=== PATIENT | female | born 1980 | race Caucasian/White ===

== ENCOUNTER 2023-06-11 04:04 | Emergency (ER) | payer OTHER, SELFPAY ==
[2023-06-11] VITALS (7 sets, daily range): BP systolic 142–164; BP diastolic 71–90; PULSE 67–87; RESP 16–23; TEMP 36.6; O2SAT 100
--- NOTE | 2023-06-11 04:30 | DI.CT_ITS ---
Exam(s) CT BRAIN CTA EXAM: CT BRAIN CTA CLINICAL HISTORY: severe headache, woke from sleep, assoicated N/V. TECHNIQUE: Imaging Protocol: Both noninfused and contrast infused CT scans of the brain were perform ed. IV Contrast Dose =75 cc Axial computed tomography images with coronal and sagittal reformatted images were created and review ed COMPARISON: No exams were available for comparison FINDINGS: CTA BRAIN: Both internal carotid arteries are patent in the skull base/carotid canals. Also patent within the c avernous sinuses. Supraclinoid aspects are patent nonaneurysmal. Left A1 segment is dominant. Righ t A1 segment is thin. Anterior cerebral arteries are patent. There is no significant aneurysm evide nt at the level of the anterior communicating artery. Both middle cerebral arteries are patent. No significant stenosis nor dissection no aneurysms. In the posterior circulation the basilar artery is formed by both vertebral arteries at the skull bas e. The basilar artery ascends in the midline with normal luminal diameter. No significant stenosis nor dissection. Distally the basilar artery terminates as patent posterior cerebral arteries. There is no aneurysm at the tip of the basilar artery nor elsewhere in the [id number]. There are no skull fractures nor fluid in the visualized paranasal sinuses. There is no evidence of intracranial hemorrhage, mass effect, or shift of midline structures. There are no extra-axial fluid collections. The ventricles are not enlarged or shifted and there is no blo od within the ventricular system nor within the basal cisterns. There are no ring enhancing lesions in the brain and there is no abnormal meningeal enhancement, foca l or diffuse. No evidence of vascular malformation. IMPRESSION: No evidence of intracranial aneurysms. No intracranial vascular stenosis nor occlusion. No significant intracranial findings. No significant enhancing intracranial findings. No evidence of vascular malformation in the brain. RADIATION DOSE DELIVERED: 1,685.94mGy.cm Total DLP DATA REPOSITORY: All CT scans at this facility are submitted to the National Radiology Data Registry (NRDR) Dose Index Registry (DIR) with the [employer] (A[employer]). RADIATION OPTIMIZATION: All CT scans at this facility use at least one of these dose optimization te chniques: automated exposure control; mA and/or kV adjustment per patient size (includes targeted exa ms where dose is matched to clinical indication); or iterative reconstruction.
--- NOTE | 2023-06-11 04:33 | W.ED.GENAD ---
Discharge Plan Disposition Patient Disposition: Home Condition: Good Discharge Details Chief Complaint: Headache Clinical Impression: Migraine ED Provider: Juanita Hayes Discharge Instructions Instructions: General Headache (ED) Additional Instructions: Call your primary care doctor today to schedule an appointment within one week to followup on your visit here. Discuss your blood pressure at that visit as it is high here today. Return to the emergency department for new or worsening symptoms including fever, severe headache unimproved by home medication, numbness or weakness, vertigo, or if you have any other concerns. Stand Alone Forms: Work Release HPI General Mode of arrival: ambulatory. Date/Time Provider Initiated Documentation: 06/11/23 04:30. Limitations to Documentation: no limitations. Information obtained by: patient. HPI Narrative: 43yo F with hx of migraines, denies other medical history, presenting for severe headache. States this headache feels like her prior migraines but worse. Woke at 11pm from sleep with severe diffuse headache radiating down her neck and shoulders; took Advil and rizatriptan without relief. Associated nausea and vomiting, non-bloody non-bilious. No numbness, tingling, weakens, vision changes, or vertigo. No alleviating or aggravating factors. No pain with neck movement. Not worse with light or sound. No recent trauma. [place] normal when she went to sleep yesterday. She is otherwise in her usual state of health with no fevers, chills, rash, chest pain, shortness of breath, abdominal pain, dysuria, hematuria, or other concerns. Related Data Allergies Allergy/AdvReac Type Severity Reaction Status Date / Time Sulfa (Sulfonamide Allergy Severe Hives Unverified 06/11/23 04:17 Antibiotics) General Stated Complaint: Headache PABLO: 3 Review of Systems Narrative: see HPI Exam Narrative Exam Narrative: General: Alert, shaking, appears to be in pain Head: Normocephalic, atraumatic. No temporal tenderness. Neck: Trachea midline, ?Neck supple. ENT: ?MMM.? . Cardiac: ?RRR, no murmurs appreciated Resp: No respiratory distress. CTAB. Abd: ?Soft, non-distended, nontender : ?No suprapubic tenderness. Extremities: ?No deformities.? No peripheral edema. Neuro: ? GCS 15.? Fluent speech, no dysarthria. No nuchal rigidity. Motor- 5/5 strength symmetric bilateral upper and lower extremities Sensation- ?Intact to light touch and symmetric multiple dermatomes including upper and lower extremities Coordination- No dysmetria on finger to nose Gait/station: ?Normal stance.? No truncal ataxia. Steady gait with equal normal steps CRANIAL NERVES: II: Pupils equal and reactive, No photophobia. III, IV, : EOM intact, no gaze preference or deviation, no nystagmus. V: normal sensation in V1, V2, and V3 segments bilaterally VII: no asymmetry, no nasolabial fold flattening VIII: normal hearing to speech IX, X: normal palatal elevation, no uvular deviation XI: 5/5 head turn and 5/5 shoulder shrug bilaterally XII: midline tongue protrusion Course Vital Signs Vital signs: Vital Signs Temperature 36.6 C 06/11/23 04:07 Pulse 78 06/11/23 04:07 Respiratory Rate 20 06/11/23 04:07 Blood Pressure 164/90 H 06/11/23 04:07 Pulse Oximetry 100 06/11/23 04:07 Temperature 36.6 C 06/11/23 04:07 Temperature Source Oral 06/11/23 04:07 Pulse 78 06/11/23 04:07 Respiratory Rate 20 06/11/23 04:07 Respiratory Effort Normal, Non-Labored 06/11/23 04:11 Blood Pressure 164/90 H 06/11/23 04:07 Blood Pressure Position Sitting 06/11/23 04:07 Pulse Oximetry 100 06/11/23 04:07 Oxygen Delivery Method Room Air 06/11/23 04:07 Oxygen Flow Rate 0 06/11/23 04:07 Pain Level 9 06/11/23 04:14 Medical Decision Making 43yo F with hx of migraines, denies other medical history, presenting for severe headache. States this headache feels like her prior migraines but worse. Woke at 11pm from sleep with severe diffuse headache radiating down her neck and shoulders; took Advil and rizatriptan without relief. Associated nausea and vomiting, non-bloody non-bilious. Hypertensive on arrival, vital signs otherwise reassuring. Benign physical and neurologic exam with no focal deficits and no nuchal rigidity. Patient does appear to be in severe pain and is shaking. She is insistent that this is her typical migraine headache however the fact that it is so severe, woke her from sleep, and was maximal at onset is concerning despite her prior history and normal neurologic exam. No fevers or nuchal rigidity to suggest meningitis. I am more concerned about a possible SAH; as it has been less than [address]/CTA should suffice to evaluate. In the meantime will treat with migraine cocktail; tylenol, compazine, benadryl, IVF, decadron. Will hold off on toradol for now pending CT results. CT head independently reviewed; slit-like ventricles on my view with possible IVH vs calcified choroid plexus. Contacted [facility] to request expedited read, imaging pushed to [facility]. Patient reports pain has improved, is ambulating easily, BP improved to 142/[address] read below, essentially normal. Discussed with [facility] neurosurgery on-call who agrees with [facility] normal head CT, ventricle size and counter normal variant. On reassessment patient reports feeling much improved, requesting discharge home. Discharged; discharge instructions and return precautions were reviewed with patient who verbalized understanding. All questions were answered and she is in full agreement with the plan. Imaging Data Radiologic Study: Imaging: CT Scan Radiologist's impression: IMPRESSION: No large vessel stenosis or occlusion. Quality:SDOH Health Related Social Needs: No Data to Display PFSH All Active Problems (Updated 06/11/23 @ 06:40 by Juanita Hayes MD) Migraine (Chronic) Social History Smoking/Tobacco Use Status: Current every day Tobacco Type: cigarettes Smoking risk assessment performed?: Yes Substance use type: marijuana
[2023-06-11] MEDS: diphenhydrAMINE 50 MG/ML VIAL IVP (04:53)
[2023-06-11] MEDS: Dexamethasone 10 MG/ML VIAL IVP (04:53)
[2023-06-11] MEDS: Normal Saline 1,000 ML 1000 ML IV (04:53)
[2023-06-11] MEDS: Normal Saline 50 ML 250 ML (04:54)
[2023-06-11] MEDS: Prochlorperazine 10 MG/2 ML VIAL IVP (04:54)
--- NOTE | 2023-06-11 04:56 | NUR.NOTE ---
pt went to the bathroom prior to coming into the ED, stated she will try to give a urine sample in a little while, deon
[2023-06-11] MEDS: Omnipaque 350 MG/ML 100 ML BTL IJ (05:15)
[2023-06-11] MEDS: Normal Saline Flush 10 ML SYR IVP (05:16)
[2023-06-11] MEDS: Normal Saline - Diluent 50 ML VIAL IJ (05:16)
--- NOTE | 2023-06-11 06:04 | DI.[facility]_ITS ---
Addendum created by Susan Fong DO on 06/11/2023 6:35:14 AM EDT: Addendum: No large territorial infarct hemorrhage mass effect or midline shift. No extra-axial fluid collection. Orbits paranasal sinuses and mastoid air cells are normal Initial report created on 06/11/2023 6:03:39 AM EDT: PROCEDURE INFORMATION: Exam: CTA Head With Contrast, Arteriography Exam date and time: 06/11/2023 5:19 AM Age: 43 years old Clinical indication: Patient HX: Severe headache, woke from sleep, associated n/v TECHNIQUE: Imaging protocol: Computed tomographic angiography of the head with contrast. Exam focused on the arteries. 3D rendering (Not supervised by radiologist): MIP and/or 3D reconstructed images were created by the technologist. Radiation optimization: All CT scans at this facility use at least one of these dose optimization techniques: automated exposure control; mA and/or kV adjustment per patient size (includes targeted exams where dose is matched to clinical indication); or iterative reconstruction. Contrast material: OMNIPAQUE 350; Contrast volume: 85 ml; Contrast route: INTRAVENOUS (IV); COMPARISON: No relevant prior studies available. FINDINGS: ANTERIOR CIRCULATION: Right internal carotid artery: Intracranial segment is patent with no significant stenosis. No aneurysm. Right middle cerebral artery: No occlusion or significant stenosis. No aneurysm. Right anterior cerebral artery: No occlusion or significant stenosis. No aneurysm. Left internal carotid artery: Intracranial segment is patent with no significant stenosis. No aneurysm. Left middle cerebral artery: No occlusion or significant stenosis. No aneurysm. Left anterior cerebral artery: No occlusion or significant stenosis. No aneurysm. POSTERIOR CIRCULATION: Right vertebral artery: No occlusion or significant stenosis. No aneurysm. Left vertebral artery: No occlusion or significant stenosis. No aneurysm. Basilar artery: No occlusion or significant stenosis. No aneurysm. Right posterior cerebral artery: No occlusion or significant stenosis. No aneurysm. Left posterior cerebral artery: No occlusion or significant stenosis. No aneurysm. Brain: No definite mass, mass effect, or midline shift. Cerebral ventricles: No ventriculomegaly. Bones/joints: Unremarkable. No acute fracture. Soft tissues: Unremarkable. IMPRESSION: No large vessel stenosis or occlusion. Dictated and Authenticated by: Susan Fong MD. Ordering:NAIMA Grant MD
[2023-06-11] MEDS: Acetaminophen 500 MG TAB 1000 MG PO (06:06)
== END 2023-06-11 06:52 | disposition home or self-care (01) ==
PROVIDERS: Emergency Provider Student in an Organized Health Care Education/Training Program; PCP Nurse Practitioner Adult Health
DX: G43.909 Migraine, unspecified, not intractable, without status migrainosus (principal); R11.2 Nausea with vomiting, unspecified
CPT/HCPCS: 36415; 70496; 81025; 96361; 96374; 96375; 99284; 99283; J0780; J1100; J1200; J3490

== ENCOUNTER 2023-10-14 00:56 | Emergency (ER) | payer OTHER, SELFPAY ==
[2023-10-14 01:00] VITALS: BP 117/88; PULSE 64; RESP 36; TEMP 36.4; O2SAT 95
--- OUTSIDE RECORDS SUMMARY | 2023-10-14 01:03 | XMS_ITS | Encounter Summary ---
Author Organization [facility] Address [address] [place] [address] Care Team Providers Care Service Liaison Representative Name Role Phone Pastora Brewster NP Primary Care Provider [phone] Encounter Details Date Type Department Care Team (Late st Contact Info) Description 03/05/2023 14:10 EST Phlebotomy Only [facility] - Outpatient Phlebotomy Drawing [address] [place] [address] Lab, [facility] [place] [facility] [place] Normocytic anemia Social History Tobacco Use Types Packs/Day Years Used Date Smoking Tobacco: Every Day Cigarettes 0.3 28.7 Started: 1995 Smokeless Tobacco: Never Comments:smoking 1 cigarette per day Alcohol Use Standard Drinks/Week Comments Yes 0 (1 standard drink = 0.6 oz pur e alcohol) AUDIT-C Answer Date Recorded Q1: How often do you have a drink containing alc ohol? Monthly or less 06/01/2020 Q2: How many drinks containi ng alcohol do you have on a typical day when you are drinking? 1 or 2 06/01/2020 Q3: How often do you have si x or more drinks on one occasion? Never 06/01/2020 Overall Financial Resource Strain (CARDIA) Answe r Date Recorded How hard is it for you to pa y for the very basics like food, housing, medical care, and heating? Not hard at all 01/25/2023 PHQ-2 Answer Date Recorded PHQ-2 SUBTOTAL 0 01/25/2023 Hunger Vital Sign Answer Date Recorded Within the past 12 months, y ou worried that your food would run out before you got the money to buy more. Never true 01/26/20 23 Within the past 12 months, t he food you bought just didn't last and you didn't have money to get more. Never true 01/25/2023 PRAPARE - Transportation Answer Date Re corded In the past 12 months, has l ack of transportation kept you from medical appointments or from getting medications? No 01/12 In the past 12 months, has l ack of transportation kept you from meetings, work, or from getting things needed for daily living? No 01/25/2023 Housing Stability Vital Sign Answer Tommy e Recorded In the last 12 months, was t here a time when you were not able to pay the mortgage or rent on time? No 01/25/2023 In the last 12 months, how many places have you lived? 1 01/25/2023 In the last 12 months, was t here a time when you did not have a steady place to sleep or slept in a long-term (including now)? No 01/25/2023 Interpersonal Safety Answer Date Record ed How often does anyone, dena up family, hit, punch or physically hurt you? Never 01/25/2023 How often does anyone, dena up family, insult, scream, curse or threaten to hurt you? Never 01/25/2023 Sex and Gender Information Value Date Recorded Sex Assigned at Not on file Gender Identity Not on file Sexual Orientation Not on file documented as of this encounter Functional Status Functional Status Response Date of Assess ment Are you deaf or do you have serious difficulty h earing? No 06/12/2021 Because of a physical, menta l, or emotional condition, does this person have difficulty doing errands alone such as visiting a doctor's office or shopping? No 05/12/2020 Cognitive Status Response Date of Assessm ent Because of a physical, menta l, or emotional condition, does this person have serious difficulty concentrating, remembering, or making decisions? No 05/12/2020 documented as of this encounter Plan of Treatment Upcoming Encounters Date Type Department Care Team (Late st Contact Info) Description 12/24/2023 15:30 EST Office Visit [facility] Adult Primary Care - [place] [address] [place] [address] Pastora Brewster NP [address] [place] [phone] documented as of this encounter Procedures Procedure Name Priority Date/Time Associated Diagnosis Comments COMPLETE BLOOD COUNT AND DIFFERENTIAL Routine 03/05/2023 14:11 EST Normocytic anemia FERRITIN Routine 03/05/2023 14:11 EST Normocytic anemia documented in this encounter Results * (ABNORMAL) FERRITIN (03/05/2023 14:11 EST) Pathologist [facility] Ferritin 5(L) 11 - 264 ng/mL 03/05/2023 17:39 [facility] Blood VENOUS BLOOD / Unknown Venipuncture / Unknown 03/05/2023 14:11 EST 03/05/2023 14:45 EST Narrative [facility] - 03/05/2023 17:39 EST The results of this assay can be falsely lowered due to the consumption of Biotin. Pastora Brewster NP CHEMISTRY & BLOOD G ORDERABLES [facility] [address] [place] [address] * (ABNORMAL) COMPLETE BLOOD COUNT AND DIFFERENTIAL (03/05/2023 14:11 EST) [facility] WBC 5.94 4.00 - 12.40 K/cmm 03/05/2023 14:51 [facility] RBC 4.33 3.86 - 5.04 M/cmm 03/05/2023 14:51 [facility] Hemoglobin 10.9(L) 11.6 - 15.2 g/dL 03/05/2023 14:51 [facility] HCT 35.4 34.9 - 44.4 % 03/05/2023 14:51 [facility] MCV 82 81 - 98 fL 03/05/2023 14:51 [facility] MCH 25.2(L) 26.7 - 33.3 pg 03/05/2023 14:51 [facility] Hypochromia 1+ 03/05/2023 14:51 [facility] MCHC 30.8(L) 32.1 - 35.9 g/dL 03/05/2023 14:51 [facility] RDW-CV 17.5(H) <14.7 % 03/05/2023 14:51 [facility] RDW-SD 50.9(H) <50.4 fl 03/05/2023 14:51 [facility] Anisocytosis 1+ 03/05/2023 14:51 [facility] PLT 353 141 - 377 K/cmm 03/05/2023 14:51 [facility] MPV 9.6 9.5 - 12.7 fL 03/05/2023 14:51 [facility] % Neutrophils 42.9 % 03/05/2023 14:51 [facility] % Lymphocytes 47.6 % 03/05/2023 14:51 [facility] % Monocytes 5.7 % 03/05/2023 14:51 [facility] % Eosinophils 2.5 % 03/05/2023 14:51 [facility] % Basophils 1.0 % 03/05/2023 14:51 [facility] % Immature Grans 0.3 % 03/05/19 14:51 [facility] Absolute Neutrophils 2.54 2.20 - 8.85 K/cmm 03/05/2023 14:51 [facility] Absolute Lymphocytes 2.83 1.09 - 3.30 K/cmm 03/05/2023 14:51 [facility] Absolute Monocytes 0.34 0.10 - 0.80 K/cmm 03/05/2023 14:51 [facility] Absolute Eosinophils 0.15 0.03 - 0.61 K/cmm 03/05/2023 14:51 [facility] ABS Basophils 0.06 0.01 - 0.11 K/cmm 03/05/2023 14:51 [facility] Absolute Immature Grans 0.02 0.00 - 0.06 K/cmm 03/05/2023 14:51 EST [facility] Type of Differential: Auto 03/05/2023 14:51 EST [facility] Blood VENOUS BLOOD / Unknown Venipuncture / Unknown 03/05/2023 14:11 EST 03/05/2023 14:45 EST Pastora Brewster NP PACKAGES & DNA PROB E ORDERABLES Performing Organization Address City/State/[facility] Co de Phone Number [facility] [address] [place] [phone] documented in this encounter Visit Diagnoses Diagnosis Normocytic anemia Anemia, unspecified documented in this encounter Care Teams Service Liaison Representative Relationship Specialty Start Date End Date Pastora Brewster NP [address] [place] [phone] PCP - General Internal Medicine - Primary Care 02/14/23 documented as of this encounter
--- OUTSIDE RECORDS SUMMARY | 2023-10-14 01:03 | XMS_ITS | Encounter Summary ---
Author Organization [facility] Address [address] [place] [address] Care Team Providers Care Pasta Press Operator Name Role Phone Haven Lawrence MD Primary Care Provider Reason for Visit * Reason Onset Date Comments Results 01/26/2023 anemia Encounter Details Date Type Department Care Team ([facility] st Contact Info) Description 01/26/[address] [facility] Adult Primary Care - [place] [address] [place], [place] [phone] Haven Lawrence MD [address], [place] [phone] Results (anemia) Social History Tobacco Use Types Packs/Day Years [...] Date Record ed How often does anyone, inclsathish up family, hit, punch or physically hurt [...] No 05/12/2020 documented as of this encounter Miscellaneous Notes * Telephone Encounter - Haven Lawrence - 01/26/2023 1626 EST I spoke with patient. She has new onset of anemia. I recommended for her to repeat it in 2 weeks and she agrees. She states that she had TPI in the past. Platelets are fine. Pastora would you be able to followed up with her? Thank you documented in this encounter Plan of Treatment Upcoming Encounters Date Type Department Care Team (Late st Contact Info) Description 12/24/2023 15:[address] [facility] Adult Primary Care - [address] [phone] Pastora Brewster, DIESEL MACHINIST [address] [place] [phone] documented as of this encounter Visit Diagnoses Not on filedocumented in this encounter Care Teams Pasta Press Operator Relationship Specialty Start Date End Date Haven Lawrence MD PCP - General Internal Medicine - Primary Care 01/20/20 02/13/23 documented as of this encounter
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
--- OUTSIDE RECORDS SUMMARY | 2023-10-14 01:03 | XMS_ITS | Encounter Summary ---
Author Organization [facility] Address [address] [place] [address] Care Team Providers Care Inventory Checker Name Role Phone Pastora Brewster COMMUNITY AIDE Primary Care Provider [phone] Reason for Visit * Reason Onset Date Comments Medications Refill 07/31/2023 Encounter Details Date Type Department Care Team (Late st Contact Info) Description 07/31/2023 Refill [facility] - [place] [address], [place] [phone] Pastora Brewster COMMUNITY AIDE [address] [place] [phone] Medications Refill Social History Tobacco Use Types Packs/Day Years [...] place to sleep or slept in a prison (including now)? No 01/25/2023 Interpersonal Safety Answer Date Record ed How often does anyone, inclu jeovanny family, hit, punch or physically hurt you? [...] No 05/12/2020 documented as of this encounter Ordered Prescriptions Prescription Sig Dispensed Refills Start Date End Da te rizatriptan (MAXALT-PROPERTY CLAIM REP) 10 mg disintegrating tabletIndications:Persiste nt migraine aura without cerebral infarction and with status migrainosus, not intractable DISSOLVE ONE TABLET ON TONGUE NEEDED FOR MIGRAINE 12 Tablet 3 07/31/2023 documented in this encounter Miscellaneous Notes * Telephone Encounter - Kyle Gay MA - 07/31/2023 7812 EDT Medication(s) Requested: Rizatriptan Preferred Pharmacy: [facility] Are visits in compliance? Yes Last Refill Date: 01/25/2023 Recent Visits Date Type Provider Dept 06/29/23 Office Visit Pastora Brewster, [facility] [place] 04/30/23 Office Visit Pastora Brewster, [facility] [place] 03/30/23 Office Visit Pastora Brewster NP [facility] [place] 01/25/23 Office Visit Haven Lawrence MD [facility] [place] 05/15/22 Office Visit Haven Lawrence MD [facility] [place] Showing recent visits within past 540 days with a meds authorizing provider and meeting all other requirements Future Appointments Date Type Provider Dept 10/02/23 Appointment Pastora Brewster NP [facility] [place] Showing future appointments within next 150 days with a meds authorizing provider and meeting all other requirements KYLE GAY MA 07/31/2023 13:52 documented in this encounter Plan of Treatment Upcoming Encounters Date Type Department Care Team (Late st Contact Info) Description 12/24/2023 15:30 EST Office Visit [facility] - [place] [address] [place] [address] Pasotra Brewster, COMMUNITY AIDE [address] [place] [phone] documented as of this encounter Visit Diagnoses Diagnosis 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, not intractable- Primary Persistent migraine aura without cerebral infarction, without mention of intractable migraine with status migrainosus documented in this encounter Discontinued Medications Medication Sig Discontinue Reason Start Date End Da te rizatriptan (MAXALT-PROPERTY CLAIM REP) 10 mg disintegrating tabletIndications:Persist ent migraine aura without cerebral infarction and with status migrainosus, not intractable DISSOLVE ONE TABLET ON TONGUE NEEDED FOR MIGRAINE Reorder 01/25/2023 07/31/2023 documented as of this encounter Care Teams Inventory Checker Relationship Specialty Start Date End Date Pastora Brewster NP [address] [place] [phone] PCP - General Internal Medicine - Primary Care 02/14/23 documented as of this encounter
--- OUTSIDE RECORDS SUMMARY | 2023-10-14 01:03 | XMS_ITS | Encounter Summary ---
Author Organization [facility] Address [address] [place] [address] Care Team Providers Care Vocational Rehabilitation Administrator Name Role Phone Pastora Brewster REGISTRATION SCHEDULING SPECIALIST Primary Care Provider [phone] Reason for Visit * Reason Onset Date Comments Prior Auth, Medication 04/03/2023 Encounter Details Date Type Department Care Team ([facility] st Contact Info) Description 04/03/2023 Telephone [facility] Primary [facility] - [place] [address], [place] [phone] Pastora Brewster REGISTRATION SCHEDULING SPECIALIST [address] [place] [phone] Prior Auth, Medication Social History Tobacco Use Types Packs/Day Years [...] encounter Miscellaneous Notes * Telephone Encounter - Katt Pereira RN - 04/05/2023 1040 EST Response from [facility] that [facility] does not require prior approval * Telephone Encounter - Katt Pereira RN - 04/05/2023 0833 EST Per adherance tab- this medication was filled on 04/01/2023 * Telephone Encounter - Katt Pereira RN - 04/05/2023 0828 EST 04/03/2023 PA submitted via [employer] documented in this encounter Plan of Treatment Upcoming Encounters Date Type Department Care Team (Late st Contact Info) Description 12/24/2023 15:30 EST Office Visit [facility] Adult Primary Care - [address] [address] Pastora Brewster NP [address] [place] [phone] documented as of this encounter Visit Diagnoses Not on filedocumented in this encounter Care Teams Vocational Rehabilitation Administrator Relationship Specialty Start Date End Date Pastora Brewster NP [address] [place] [phone] PCP - General Internal Medicine - Primary Care 02/14/23 documented as of this encounter
--- OUTSIDE RECORDS SUMMARY | 2023-10-14 01:03 | XMS_ITS | Encounter Summary ---
Author Organization [facility] Address [address] [place] [address] Care Team Providers Care Warehouse And Receiving Supervisor Name Role Phone Pastora Brewster CUSTODY ASSISTANT Primary Care Provider [phone] Reason for Visit * Reason Onset Date Comments Results 07/30/2023 Encounter Details Date Type Department Care Team ([facility] st Contact Info) Description 07/30/2023 Telephone [facility] Adult Primary Care - [place] [address] [place], [place] [phone] Pastora Brewster CUSTODY ASSISTANT [address] [place] [phone] Results Social History Tobacco Use Types Packs/Day Years [...] place to sleep or slept in a usp (including now)? No 01/25/2023 Interpersonal Safety Answer [...] Dispensed Refills Start Date End Da te cyanocobalamin (VITAMIN B-12) 1,000 mcg tablet Take 1 Tablet by mouth daily. 90 Tablet 3 07/30/2023 documented in this encounter Miscellaneous Notes * Telephone Encounter - Katt Pereira RN - 07/30/2023 1419 EDT Call to Lexis- provided information from Pastora as written below. Acknowledged. * Telephone Encounter - Pastora Brewster NP - 07/30/2023 1046 EDT B12 low at 209. Will start oral B12 supplement and repeat B12 levels before next visit. I attempted to call patient but unable to leave message. Please notify patient. B12 supplement sent to [facility]. documented in this encounter Plan of Treatment Upcoming Encounters Date Type Department Care Team (Late st Contact Info) Description 12/24/2023 15:30 EST Office Visit [facility] Adult Primary Care - [address] [phone] Pastora Brewster NP [address] [place] [phone] documented as of this encounter Results * VITAMIN B12 (08/27/2023 12:53 EDT) Vitamin B12 432 211 - 911 pg/mL 08/27/2023 15:59 EDT [facility] Blood VENOUS BLOOD / Unknown Venipuncture / Unknown 08/27/2023 12:53 EDT 08/27/2023 13:47 EDT Narrative [facility] - 08/27/2023 15:59 EDT The results of this assay can be falsely elevated due to the consumption of Biotin. Pastora Brewster NP CHEMISTRY & BLOOD G ORDERABLES [facility] [address] [place] [phone] documented in this encounter Visit Diagnoses Diagnosis B12 deficiency- Primary Other B-complex deficiencies documented in this encounter Care Teams Warehouse And Receiving Supervisor Relationship Specialty Start Date End Date Pastora Brewster, CUSTODY ASSISTANT [address] [place] [phone] PCP - General Internal Medicine - Primary Care 02/14/23 documented as of this encounter
--- OUTSIDE RECORDS SUMMARY | 2023-10-14 01:03 | XMS_ITS | Encounter Summary ---
Author Organization [facility] Address [address] [place] [address] Care Team Providers Care Web Page Designer Name Role Phone Pastora Brewster AUTOMOTIVE WORKER Primary Care Provider [phone] Reason for Visit * Reason Comments Follow-up Encounter Details Date Type Department Care Team ([facility] st Contact Info) Description 06/29/2023 13:30 EDT Office Visit [facility] Adult [facility] - [place] [address] [place], [place] [phone] Pastora Brewster AUTOMOTIVE WORKER [address] [place] [phone] Iron deficiency anemia, unspecified iron deficiency anemia type (Primary Dx); Adjustment reaction with anxiety and depression; Migraine with aura and without status migrainosus, not intractable Social History Tobacco Use Types Packs/Day Years [...] place to sleep or slept in a alf (including now)? No 01/25/2023 Interpersonal Safety Answer [...] on file documented as of this encounter Last Filed Vital Signs Vital Sign Reading Time Taken Comments Blood Pressure 126/94 06/29/2023 1317 EDT Pulse 92 06/29/2023 1317 EDT Temperature - - Respiratory Rate 14 06/29/2023 1317 EDT Oxygen Saturation - - Inhaled Oxygen Concentration - - Weight 76.8 kg (169 lb 6.4 oz) 06/29/2023 1317 E DT Height 158 cm (5' 2.21) 06/29/2023 1317 EDT Body Mass Index 30.78 06/29/2023 1317 EDT documented in this encounter Functional Status Functional Status Response [...] Dispensed Refills Start Date End Da te citalopram (CELEXA) 20 mg tabletIndications:Adjustm ent reaction with anxiety and depression Take 1.5 Tablets by mouth daily. 135 Tablet 3 06/29/2023 documented in this encounter Progress Notes * Pastora Brewster, AUTOMOTIVE WORKER - 06/29/2023 1330 EDT Primary Care Visit Subjective Lexis is a 43 y.o. female presenting with Follow-up History of Present Illness Lexis, a patient with a history of anxiety, depression, GERD, and migraines, presents with increased stress levels due to recent life changes including moving houses and dealing with her mother's health issues. She reports that her anxiety and depression are somewhat controlled with 20mg of citalopram, but she is considering increasing the dose due to her current stress levels. Lexis also reports issues with her migraine medication, Nurtec. She finds the medication effective, but is having difficulties with her insurance company, which only allows her to get eight tablets at a time. She has had severe migraines in the past, requiring emergency room visits. In addition to her mental health and migraine issues, Lexis is experiencing fatigue and sleep problems. She reports difficulty falling asleep and relies on NyQuil Zs to help her sleep. Lexis is scheduled for an upper endoscopy and colonoscopy, but she has not been contacted with instructions for the procedure. She also mentions that her iron levels were low three months ago, but she has been taking an iron supplement and her symptoms of Pica (ice cravings) have improved. ROS - See HPI Data reviewed this visit: problem list/past medical history, current medications, and allergies Objective BP (!) 126/94 (BP Cuff Location: Left arm, BP Patient Position: Sitting, BP Cuff Sizes: Adult, regular) Pulse 92 Resp 14 Ht 158 cm (62.21) Wt 76.8 kg (169 lb 6.4 oz) BMI 30.78 kg/m?? Physical Exam Physical Exam Constitutional: Appearance: Normal appearance. HENT: Head: Normocephalic and atraumatic. Cardiovascular: Rate and Rhythm: Normal rate. Pulmonary: Effort: Pulmonary effort is normal. Skin: General: Skin is warm and dry. Neurological: Mental Status: She is alert and oriented to person, place, and time. Assessment & Plan Migraine: Severe headache episode in late May/early June requiring ER visit. Currently on Nurtec every other day, which is working well without adverse effects but insurance coverage is a concern. -Continue Nurtec every other day as a preventative measure. Depression/Anxiety: Currently on Citalopram 20mg daily. -Increase Citalopram to 30mg daily, taking at night to potentially assist with insomnia. Iron Deficiency Anemia: Previously low iron levels and anemia, currently taking iron supplements and reports cessation of ice chewing (Pica). -Draw labs today to check blood counts, iron level, thyroid level, and B12 level. Insomnia: Difficulty sleeping, currently using NyQuil Zs. -Consider adjusting caffeine intake and sleep aids to improve sleep-wake cycle. Recommended againstlong term use of benadryl. Colonoscopy/Upper Endoscopy: Scheduled for August 14, patient was unaware. -Provided with [facility] GI number so she can call for pre procedure instructions. Follow-up in three months. Diagnoses and all orders for this visit: Iron deficiency anemia, unspecified iron deficiency anemia type - COMPLETE BLOOD COUNT AND DIFFERENTIAL - THYROID CASCADE - VITAMIN B12 - FERRITIN Adjustment reaction with anxiety and depression - citalopram (CELEXA) 20 mg tablet Migraine with aura and without status migrainosus, not intractable Patient education was direct. Barriers were assessed and addressed as needed. I discussed with Lexis Turner the use of this audio recording tool to create a clinical note. Iexplained the benefits of the technology, such as time savings and a better patient experience. I explained that the recording will be confidential and converted into a written note which I will review and edit as needed before it is saved in the medical record. The patient expressed an understanding of the use of this technology for clinical documentation and agreed to allow its use for this encounter. * Amparo Lindsay MA - 06/29/2023 1330 EDT Venipuncture performed by: AMPARO LINDSAY MA Site collected:Left Antecubital Space Volume withdrawn:SST; 8.5ml and Lavender Top Tube, 3.0ml Patient response:Patient tolerated venipuncture well Ordering provider:Pastora Brewster NP documented in this encounter Plan of Treatment Upcoming Encounters Date Type Department Care Team (Late st Contact Info) Description 12/24/2023 15:30 EST Office Visit [facility] - [address] [phone] Pastora Brewster NP [address] [place] [phone] documented as of this encounter Procedures Procedure Name Priority Date/Time Associated Diagnosis Comments THYROID CASCADE Routine 06/29/2023 13:58 EDT Iron deficiency anemia, unspecified iron deficiency anemia type COMPLETE BLOOD COUNT AND DIFFERENTIAL Routine 06/29/2023 13:58 EDT Iron deficiency anemia, unspecified iron deficiency anemia type FERRITIN Routine 06/29/2023 13:58 EDT Iron deficiency anemia, unspecified iron deficiency anemia type VITAMIN B12 Routine 06/29/2023 13:58 EDT Iron deficiency anemia, unspecified iron deficiency anemia type documented in this encounter Results * FERRITIN (06/29/2023 13:58 EDT) Ferritin 14 11 - 264 ng/mL 06/29/2023 16:23 EDT [facility] Blood VENOUS BLOOD / Unknown Venipuncture / Unknown 06/29/2023 13:58 EDT 06/29/2023 13:58 EDT [facility] - 06/29/2023 16:23 EDT The results of this assay can be falsely lowered due to the consumption of Biotin. Pastora Brewster NP CHEMISTRY & BLOOD G ORDERABLES Performing Organization Address [facility] Co de Phone Number [facility] [address] [place] [address] * (ABNORMAL) VITAMIN B12 (06/29/2023 13:58 EDT) Pathologist [facility] Vitamin B12 209(L) 211 - 911 pg/mL 06/29/2023 16:38 EDT [facility] Blood VENOUS BLOOD / Unknown Venipuncture / Unknown 06/29/2023 13:58 EDT 06/29/2023 13:58 EDT [facility] - 06/29/2023 16:38 EDT The results of this assay can be falsely elevated due to the consumption of Biotin. Pastora Brewster NP CHEMISTRY & BLOOD G ORDERABLES Performing Organization Address [facility] Phone Number [facility] [address] [place] [address] * THYROID CASCADE (06/29/2023 13:58 EDT) Pathologist [facility] TSH 0.52 0.47 - 4.68 mIU/L 06/29/2023 16:19 EDT [facility] Blood VENOUS BLOOD / Unknown Venipuncture / Unknown 06/29/2023 13:58 EDT 06/29/2023 13:58 EDT [facility] - 06/29/2023 16:19 EDT NOTE: The results of this assay can be falsely lowered due to the consumption of Biotin. Pastora J Ney AUTOMOTIVE WORKER CHEMISTRY & BLOOD G ORDERABLES [facility] [address] [place] [address] * (ABNORMAL) COMPLETE BLOOD COUNT AND DIFFERENTIAL (06/29/2023 13:58 EDT) WBC 5.84 4.00 - 12.40 K/cmm 06/29/2023 15:33 [facility] RBC 3.98 3.86 - 5.04 M/cmm 06/29/2023 15:33 [facility] Hemoglobin 12.5 11.6 - 15.2 g/dL 06/29/2023 15:33 [facility] HCT 36.7 34.9 - 44.4 % 06/29/2023 15:33 [facility] MCV 92 81 - 98 fL 06/29/2023 15:33 [facility] MCH 31.4 26.7 - 33.3 pg 06/29/2023 15:33 [facility] MCHC 34.1 32.1 - 35.9 g/dL 06/29/2023 15:33 [facility] RDW-CV 16.9(H) <14.7 % 06/29/2023 15:33 [facility] RDW-SD 58.0(H) <50.4 fl 06/29/2023 15:33 [facility] PLT 301 141 - 377 K/cmm 06/29/2023 15:33 [facility] MPV 10.2 9.5 - 12.7 fL 06/29/2023 15:33 [facility] % Neutrophils 46.9 % 06/29/2023 15:33 [facility] % Lymphocytes 41.8 % 06/29/2023 15:33 [facility] % Monocytes 6.5 % 06/29/2023 15:33 [facility] % Eosinophils 3.6 % 06/29/2023 15:33 [facility] % Basophils 1.0 % 06/29/2023 15:33 [facility] % Immature Grans 0.2 % 06/29/19 15:33 [facility] Absolute Neutrophils 2.74 2.20 - 8.85 K/cmm 06/29/2023 15:33 [facility] Absolute Lymphocytes 2.44 1.09 - 3.30 K/cmm 06/29/2023 15:33 [facility] Absolute Monocytes 0.38 0.10 - 0.80 K/cmm 06/29/2023 15:33 [facility] Absolute Eosinophils 0.21 0.03 - 0.61 K/cmm 06/29/2023 15:33 [facility] ABS Basophils 0.06 0.01 - 0.11 K/cmm 06/29/2023 15:33 [facility] Absolute Immature Grans 0.01 0.00 - 0.06 K/cmm 06/29/2023 15:33 [facility] Type of Differential: Auto 06/29/2023 15:33 [facility] Blood VENOUS BLOOD / Unknown Venipuncture / Unknown 06/29/2023 13:58 EDT 06/29/2023 13:58 EDT Pastora Brewster NP PACKAGES & DNA PROB E ORDERABLES Performing Organization Address City/State/[facility] Co de Phone Number [facility] [address] [place] [address] documented in this encounter Visit Diagnoses Diagnosis Iron deficiency anemia, unspecified iron deficiency anemia type- Primary Adjustment reaction with anxiety and depression Adjustment disorder with mixed anxiety and depressed mood Migraine with aura and without status migrainosus, not intractable Migraine with aura, without mention of intractable migraine without mention of status migrainosus documented in this encounter Discontinued Medications Medication Sig Discontinue Reason Start Date End Da te hydrOXYzine (ATARAX) 25 mg tablet Take 1 Tablet by mouth at bedtime as needed for Itching. 01/25/2023 06/29/2023 azithromycin (ZITHROMAX) 250 mg tabletIndications:Acute streptococcal pharyngitis Take 2 tablets (500 mg) on day 1, followed by 1 tablet (250 mg) once daily on days 2 through 5. 02/14/2023 06/29/2023 citalopram (CELEXA) 20 mg tablet Take 1 Tablet by mouth daily. Reorder 04/23/2023 06/29/2023 documented as of this encounter Care Teams Web Page Designer Relationship Specialty Start Date End Date Pastora Brewster NP [address] [place] [phone] PCP - General Internal Medicine - Primary Care 02/14/23 documented as of this encounter
--- OUTSIDE RECORDS SUMMARY | 2023-10-14 01:03 | XMS_ITS | Encounter Summary ---
Author Organization [facility] Address [address] [place] [address] Care Team Providers Care Cardiothoracic Icu Rn Name Role Phone Pastora Brewster NP Primary Care Provider [phone] Reason for Visit * Reason Onset Date Comments Results 02/14/2023 Encounter Details Date Type Department Care Team (Late st Contact Info) Description 02/14/2023 Telephone [facility] [address] [place] [phone] Fany Baker PA-C [address] [place] [address] [place] [phone] Results Social History Tobacco Use Types Packs/Day [...] place to sleep or slept in a [place] (including now)? No 01/25/2023 Interpersonal Safety Answer [...] Dispensed Refills Start Date End Da te azithromycin (ZITHROMAX) 250 mg tabletIndications:Acute streptococcal pharyngitis Take 2 tablets (500 mg) on day 1, followed by 1 tablet (250 mg) once daily on days 2 through 5. 6 Tablet 02/14/2023 06/29/2023 documented in this encounter Miscellaneous Notes * Telephone Encounter - Fany Ayala PA-C - 02/14/2023 1702 EST Spoke with patient via telephone regarding throat culture results, which show light growth of manage the patient. Patient reports that she is still having sore throat, does not feel much better and would like to proceed with antibiotics. Prescription for azithromycin sent to the pharmacy as she has allergies listed to amoxicillin and cephalosporins. She has taken azithromycin in the past without issue. documented in this encounter Plan of Treatment Upcoming Encounters Date Type Department Care Team (Late st Contact Info) Description 12/24/2023 15:30 EST Office Visit [facility] Adult Primary Care - [address] [address] Pastora Brewster NP [address] [place] [phone] documented as of this encounter Visit Diagnoses Diagnosis Acute streptococcal pharyngitis- Primary Streptococcal sore throat documented in this encounter Care Teams Cardiothoracic Icu Rn Relationship Specialty Start Date End Date Pastora Brewster NP [address] [place] [phone] PCP - General Internal Medicine - Primary Care 02/14/23 documented as of this encounter
--- OUTSIDE RECORDS SUMMARY | 2023-10-14 01:03 | XMS_ITS | Encounter Summary ---
Author Organization [facility] Address [address] [place] [address] Care Team Providers Care Commercial Banker Name Role Phone Haven Lawrence MD Primary Care Provider Pastora Brewster NP Primary Care Provider [phone] Reason for Visit * Reason Onset Date Comments Appointment Related 02/09/2023 Encounter Details Date Type Department Care Team ([facility] st Contact Info) Description 02/09/[address] [facility] - [place] [address] [place], [place] [address] Haven Lawrence MD [address] [place] [address] Appointment Related Social History Tobacco Use Types Packs/Day Years [...] place to sleep or slept in a senior living (including now)? No 01/25/2023 Interpersonal Safety Answer [...] encounter Miscellaneous Notes * Telephone Encounter - Amilcar Chan - 02/14/2023 1506 EST Pt notified, appt scheduled dayana 03/30/2023. She is on vacation the week after. * Telephone Encounter - Pastora Brewster NP - 02/14/2023 1236 EST Yes, this is ok. She had recent anemia, Haven recommended repeating in a couple weeks. She was seen at [facility] on 02/12. I would hold off on repeating labs for a couple more weeks because illness could impact lab values. Labs ordered, she can have drawn at hospital lab in a couple weeks. Follow up with me after. Thanks. * Telephone Encounter - Deepthi Carpenter - 02/09/2023 1425 EST Lexis called again. Would like to see MP as her PCP. Informed her MP out of the office. Message from previous call in process, MP is out of the office today. Our office will call her back when we know. * Telephone Encounter - Elizabeth Mcgee - 02/09/2023 1004 EST Pt LVM stating Dr. Lawrence gave her Pastora Brewster's name as their new Provider and wants to schedule some appointments with her. I need confirmation that this is ok before I schedule any appointmentsas Dr. Lawrence's replacement is Juanita Dash. documented in this encounter Plan of Treatment Upcoming Encounters Date Type Department Care Team (Late st Contact Info) Description 12/24/2023 15:[address] [facility] Adult Primary [facility] - [address] [address] Pastora Brewster NP [address] [place] [phone] documented as of this encounter Results * (ABNORMAL) FERRITIN (03/05/2023 14:11 EST) [facility] Ferritin 5(L) 11 - 264 ng/mL 03/05/2023 17:39 [facility] Blood VENOUS BLOOD / Unknown Venipuncture / Unknown 03/05/2023 14:11 EST 03/05/2023 14:45 EST [facility] - 03/05/2023 17:39 EST The results of this assay can be falsely lowered due to the consumption of Biotin. Pastora Brewster NP CHEMISTRY & BLOOD G ORDERABLES [facility] [address] [place] [address] * (ABNORMAL) COMPLETE BLOOD COUNT AND DIFFERENTIAL (03/05/2023 14:11 EST) [facility] WBC 5.94 4.00 - 12.40 K/cmm 03/05/2023 14:51 [facility] RBC 4.33 3.86 - 5.04 M/cmm 03/05/2023 14:51 [facility] Hemoglobin 10.9(L) 11.6 - 15.2 g/dL 03/05/2023 14:51 [facility] HCT 35.4 34.9 - 44.4 % 03/05/2023 14:51 [facility] MCV 82 81 - 98 fL 03/05/2023 14:51 [facility] MCH 25.2(L) 26.7 - 33.3 pg 03/05/2023 14:51 [facility] Hypochromia 1+ 03/05/2023 14:51 [facility] MCHC 30.8(L) 32.1 - 35.9 g/dL 03/05/2023 14:51 [facility] RDW-CV 17.5(H) <14.7 % 03/05/2023 14:51 [facility] RDW-SD 50.9(H) <50.4 fl 03/05/2023 14:51 [facility] Anisocytosis 1+ 03/05/2023 14:51 [facility] PLT 353 141 - 377 K/cmm 03/05/2023 14:51 [facility] MPV 9.6 9.5 - 12.7 fL 03/05/2023 14:51 [facility] % Neutrophils 42.9 % 03/05/2023 14:51 [facility] % Lymphocytes 47.6 % 03/05/2023 14:51 [facility] % Monocytes 5.7 % 03/05/2023 14:51 [facility] % Eosinophils 2.5 % 03/05/2023 14:51 [facility] % Basophils 1.0 % 03/05/2023 14:51 [facility] % Immature Grans 0.3 % 03/05/19 14:51 [facility] Absolute Neutrophils 2.54 2.20 - 8.85 K/cmm 03/05/2023 14:51 [facility] Absolute Lymphocytes 2.83 1.09 - 3.30 K/cmm 03/05/2023 14:51 [facility] Absolute Monocytes 0.34 0.10 - 0.80 K/cmm 03/05/2023 14:51 [facility] Absolute Eosinophils 0.15 0.03 - 0.61 K/cmm 03/05/2023 14:51 [facility] ABS Basophils 0.06 0.01 - 0.11 K/cmm 03/05/2023 14:51 [facility] Absolute Immature Grans 0.02 0.00 - 0.06 K/cmm 03/05/2023 14:51 [facility] Type of Differential: Auto 03/05/2023 14:51 [facility] Blood VENOUS BLOOD / Unknown Venipuncture / Unknown 03/05/2023 14:11 EST 03/05/2023 14:45 EST Pastora Brewster NP PACKAGES & DNA PROB E ORDERABLES [facility] [address] [place] [address] documented in this encounter Visit Diagnoses Diagnosis Normocytic anemia- Primary Anemia, unspecified documented in this encounter Care Teams Commercial Banker Relationship Specialty Start Date End Date Haven Lawrence MD PCP - General Internal Medicine - Primary Care 01/20/20 02/13/23 Pastora Brewster NP [address] [place] [phone] PCP - General Internal Medicine - Primary Care 02/14/23 documented as of this encounter
--- OUTSIDE RECORDS SUMMARY | 2023-10-14 01:03 | XMS_ITS | Encounter Summary ---
Author Organization [facility] Address [address] [place] [address] Care Team Providers Care Dry Cell Assembly Supervisor Name Role Phone Pastora Brewster HYDRAULIC MINER Primary Care Provider [phone] Reason for Visit * Reason Onset Date Comments Patient Information Update 08/03/2023 Encounter Details Date Type Department Care Team ([facility] st Contact Info) Description 08/03/2023 Telephone [facility] Adult Primary [facility] - [place] [address] [place], [place] [phone] Pastora Brewster HYDRAULIC MINER [address] [place] [phone] Patient Information Update Social History Tobacco Use Types Packs/Day Years [...] Telephone Encounter - Katt Pereira RN - 08/03/2023 1643 EDT Call to Lexis to advise of Pastora's note- left message * Telephone Encounter - Pastora Brewster NP - 08/03/2023 1559 EDT I think she should keep the appointment. It is for upper endoscopy and colonoscopy. She is due for colon cancer screening. But also had iron def anemia, which concerns me about possible GI bleed / ulcer. I am glad she is feeling better with omeprazole and iron supplementation but I want to make sure we aren't missing something like cancer. * Telephone Encounter - Katt Pereira RN - 08/03/2023 1433 EDT Spoke with Lexis who said she would like to cancel the endoscopy because since the omeprazole was increased she hasn't had any issues. She intends to keep the colonoscopy and wanted to check in with Pastora re: the endoscopy. * Telephone Encounter - Monet Cox - 08/03/2023 1130 EDT Lexis patient calling she is requesting to cancel the Endoscopy she has on 08/15/23 as she is feeling much better taking the omeprazole She states she really doesn't want to do it but will wait to cancel until she knows what Fiorella thinks? [phone] documented in this encounter Plan of Treatment Upcoming Encounters Date Type Department Care Team (Late st Contact Info) Description 12/24/2023 15:30 EST Office Visit [facility] Adult Primary Care - [address] [address] Pastora Brewster NP [address] [place] [phone] documented as of this encounter Visit Diagnoses Not on filedocumented in this encounter Care Teams Dry Cell Assembly Supervisor Relationship Specialty Start Date End Date Pastora Brewster NP [address] [place] [phone] PCP - General Internal Medicine - Primary Care 02/14/23 documented as of this encounter
--- OUTSIDE RECORDS SUMMARY | 2023-10-14 01:03 | XMS_ITS | Encounter Summary ---
Author Organization [facility] Address [address] [place] [address] Care Team Providers Care Bilingual Speech Therapist Name Role Phone Pastora Brewster FEATURE WRITER Primary Care Provider [phone] Reason for Visit * Reason Comments Follow-up Encounter Details Date Type Department Care Team (Late st Contact Info) Description 10/02/2023 8:45 EDT Office Visit [facility] Adult Primary [facility] - [place] [address] [place], [place] [phone] Pastora Brewster FEATURE WRITER [address] [place] [phone] Iron deficiency anemia, unspecified iron deficiency anemia type (Primary Dx); Migraine with aura and without status migrainosus, not intractable; B12 deficiency Social History Tobacco Use Types Packs/Day Years [...] place to sleep or slept in a assisted (including now)? No 01/25/2023 Interpersonal Safety Answer [...] EDT Pulse 91 10/02/2023 0831 EDT Temperature - - Respiratory Rate - - Oxygen Saturation 99% 10/02/2023 08 EDT Inhaled Oxygen Concentration - - Weight 75.3 kg (166 lb) 10/02/2023 0831 EDT Height 167.6 cm (5' 5.98) 10/02/2023 0831 EDT Body Mass Index 26.81 10/02/2023 0831 EDT documented in this encounter Functional Status [...] Dispensed Refills Start Date End Da te rimegepant (NURTEC ODT) 75 mg tablet,disintegratingIndic ations:Migraine with aura and without status migrainosus, not intractable Take 1 Tablet by mouth every 48 hours. 45 Tablet 3 10/02/2023 norethindrone (MICRONOR) 0.35 mg tabletIndications:Iron deficiency anemia, unspecified iron deficiency anemia type Take 1 Tablet by mouth daily. 90 Tablet 3 10/02/2023 documented in this encounter Progress Notes * Pastora Brewster NP - 10/02/2023 0845 EDT Primary Care Visit Greyson Pires is a 43 y.o. female presenting with Follow-up History of Present Illness Matthew, a patient with a history of iron deficiency anemia, anxiety, depression, GERD, and migraines, presents for a follow-up visit. She recently underwent an upper endoscopy and colonoscopy, both of which were normal. Celiac testing was also performed due to B12 deficiency and iron deficiency, but the results were negative. The patient has been taking an iron supplement, and her ferritin levels have improved. She is also on Nurtec for migraine prevention and citalopram for depression and anxiety. The citalopram dosage was recently increased to 30 mg daily to potentially help with insomnia. She has found this beneficial for mood. The patient reports feeling tired, which she attributes to the weather. She also mentions a recent experience with a colonoscopy, which was stressful for her, but she was pleased with the nursing care she received. The patient has been taking iron and B12 supplements, and her ferritin and B12 levels have improved, although the ferritin is still low normal. She reports feeling tired but notes that her hemoglobinis now in the normal range. The patient also discusses challenges with her Nurtec prescription due to insurance restrictions. She finds the two-week dispensing schedule inconvenient. Despite these challenges, she believes the Nurtec is helping with her migraines. The patient reports heavy periods, particularly on the second and third days, and intense migraineseither right before or after her period. The patient also mentions frequent urination at night, which she has experienced since she was young. She wakes up five or six times a night to urinate but is able to fall back asleep. She has tried medication for this issue in the past but found the side effects intolerable. The patient is considering trying magnesium to help with sleep. She reports feeling exhausted and having difficulty falling asleep, although she does not believe she snores. ROS - See HPI Data reviewed this visit: problem list/past medical history, current medications, and allergies Objective BP 120/82 (BP Cuff Location: Right arm, BP Patient Position: Sitting) Pulse 91 Ht 167.6 cm (65.98) Wt 75.3 kg (166 lb) SpO2 99% BMI 26.81 kg/m?? Physical Exam Physical Exam Constitutional: General: She is not in acute distress. Appearance: She is well-developed. She is not diaphoretic. Cardiovascular: Rate and Rhythm: Normal rate. Pulmonary: Effort: Pulmonary effort is normal. Skin: General: Skin is warm and dry. Neurological: Mental Status: She is alert and oriented to person, place, and time. Assessment & Plan Iron Deficiency Anemia Improvement noted with iron supplementation. Ferritin levels are still low normal, but hemoglobin is now within normal range. B12 levels have also improved with oral supplementation. -Continue iron and B12 supplementation. -Check iron and B12 levels in 3 months. Migraines Patient reports improvement with Nurtec. Difficulty with insurance and pharmacy noted. -Continue Nurtec as prescribed. -Send additional refills to pharmacy. Depression/Anxiety Patient reports feeling good with increased dose of citalopram. -Continue citalopram 30mg daily. Menstrual-related symptoms Heavy periods possibly contributing to iron deficiency. Migraines noted around menstrual cycle. -Start progesterone-only control pill to reduce menstrual bleeding and possibly prevent migraines. -Consider magnesium supplementation for sleep. General Health Maintenance -Check back in 3 months. Diagnoses and all orders for this visit: Iron deficiency anemia, unspecified iron deficiency anemia type - norethindrone (MICRONOR) 0.35 mg tablet - COMPLETE BLOOD COUNT AND DIFFERENTIAL - FERRITIN Migraine with aura and without status migrainosus, not intractable - rimegepant (NURTEC ODT) 75 mg tablet,disintegrating B12 deficiency - VITAMIN B12 Patient education was direct. Barriers were assessed [...] to allow its use for this encounter. documented in this encounter Plan of Treatment Upcoming Encounters Date Type Department Care Team (Late st Contact Info) Description 12/24/2023 15:30 EST Office Visit [facility] Adult Primary [facility] - [address] [phone] Pastora Brewster NP [address] [place] [phone] Scheduled Orders Name Type Priority Associated Diagnoses Orde r Schedule COMPLETE BLOOD COUNT AND DIFFERENTIAL Lab Routine Iron deficiency anemia, unspecified iron deficiency anemia type Expected: 10/02/2023 (Approximate), Expires: 10/01/2024 VITAMIN B12 Lab Routine B12 deficiency Expected: 10/02/2023 (Approximate), Expires: 10/01/2024 FERRITIN Lab Routine Iron deficiency anemia, unspecified iron deficiency anemia type Expected: 10/02/2023 (Approximate), Expires: 10/01/2024 documented as of this encounter Visit Diagnoses Diagnosis Iron deficiency anemia, unspecified iron deficiency anemia type- Primary Migraine with aura and without status migrainosus, not intractable Migraine with aura, without mention of intractable migraine without mention of status migrainosus B12 deficiency Other B-complex deficiencies documented in this encounter Discontinued Medications Medication Sig Discontinue Reason Start Date End Da te rimegepant (NURTEC ODT) 75 mg tablet,disintegratingIndi cations:Migraine with aura and without status migrainosus, not intractable Take 1 Tablet by mouth every 48 hours. Reorder 03/30/2023 10/02/2023 documented as of this encounter Care Teams Bilingual Speech Therapist Relationship Specialty Start Date End Date Pastora Brewster NP [address] [place] [phone] PCP - General Internal Medicine - Primary Care 02/14/23 documented as of this encounter
--- OUTSIDE RECORDS SUMMARY | 2023-10-14 01:03 | XMS_ITS | Encounter Summary ---
Author Organization [facility] Address [address] [place] [address] Care Team Providers Care Prepress Specialist Name Role Phone Pastora Brewster US [employer] AND BORDER OFFICER Primary Care Provider [phone] Reason for Visit * Reason Comments Follow-up Medication Management Encounter Details Date Type Department Care Team ([facility] st Contact Info) Description 04/30/2023 14:15 EDT Office Visit [facility] Adult Primary Care - [place] [address] [place], [place] [phone] Pastora Brewster US CUSTOMS AND BORDER OFFICER [address] [place] [phone] Adjustment reaction with anxiety and depression (Primary Dx); Gastroesophageal reflux disease without esophagitis; 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 No 01/25/2023 Interpersonal Safety Answer [...] Sign Reading Time Taken Comments Blood Pressure 142/96 04/30/2023 1407 EDT Pulse 106 04/30/2023 1407 EDT Temperature - - Respiratory Rate - - Oxygen Saturation - - Inhaled Oxygen Concentration - - Weight 77.7 kg (171 lb 4.8 oz) 04/30/2023 1407 E DT Height - - Body Mass Index 31.12 01/25/2023 1126 EST documented in this encounter Functional Status Functional [...] Dispensed Refills Start Date End Da te omeprazole (PRILOSEC) 40 mg capsuleIndications:Gastro esophageal reflux disease without esophagitis Take 1 Capsule by mouth every morning. 90 Capsule 3 04/30/2023 documented in this encounter Progress Notes * Pastora Brewster NP - 04/30/2023 1415 EDT Patient ID: Lexis Turner is a 42 y.o. female Reason for Visit: Follow-up and Medication Management Subjective: HPI: Lexis presents today for a follow-up regarding recent increase in citalopram from 10 mg to 20 mgdaily due to increased situational stress. Her mom was recently hospitalized for an infection and now has a wound VAC. Lexis is also currently moving out of her house that she lived in for the at least 20 years and temporarily moving to her camp in [place] while her new house is being built. Migraines: only received 8 tablets of Nurtec. Has taken these and thinks it may be helping. She hasbeen trying to reduce advil use and thinks that she has been able to. Referral to neurology was placed, still waiting to schedule an appointment. GERD: has been taking omeprazole 40mg daily. This has been helpful. Still waiting on appointment for colonoscopy and upper endoscopy from [facility]. ROS: Review of Systems Constitutional: Negative for fever and weight loss. Respiratory: Negative for cough and shortness of breath. Cardiovascular: Negative for chest pain and palpitations. Outpatient Encounter Medications as of 04/30/2023 Medication Sig azithromycin (ZITHROMAX) 250 mg tablet Take 2 tablets (500 mg) on day 1, followed by 1 tablet (250 mg) once daily on days 2 through 5. (Patient not taking: Reported on 03/30/2023) citalopram (CELEXA) 20 mg tablet Take 1 Tablet by mouth daily. Colloidal Oatmeal (EUCERIN ECZEMA RELIEF) 1 % cream Apply topically 2 times daily. ferrous gluconate (FERGON) 324 mg (38 mg iron) tablet Take 1 Tablet by mouth daily with breakfast. hydrocortisone 2.5 % lotion Apply twice daily on affected skin (Patient not taking: Reported on 04/30/2023) hydrOXYzine (ATARAX) 25 mg tablet Take 1 Tablet by mouth at bedtime as needed for Itching. (Patientnot taking: Reported on 04/30/2023) ibuprofen (MOTRIN) 200 mg tablet Take 4 Tablets by mouth every 6 hours as needed for Pain. [DISCONTINUED] omeprazole (PRILOSEC) 20 mg capsule Take 1 Capsule by mouth daily. (Patient taking differently: Take 2 Capsules by mouth daily.) omeprazole (PRILOSEC) 40 mg capsule Take 1 Capsule by mouth every morning. polyethylene glycol (MIRALAX) 17 gram/dose powder Instructions mailed once procedure scheduled. (Patient not taking: Reported on 02/12/2023) promethazine (PHENERGAN) 25 mg tablet Take 1 Tablet by mouth every 8 hours as needed for Nausea. rimegepant (NURTEC ODT) 75 mg tablet,disintegrating Take 1 Tablet by mouth every 48 hours. rizatriptan (MAXALT-INVOICE CONTROL CLERK) 10 mg disintegrating tablet DISSOLVE ONE TABLET ON TONGUE NEEDED FOR MIGRAINE No facility-administered encounter medications on file as of 04/30/2023. Past Medical History: Diagnosis Date Depression Hx of migraine headaches Past Surgical History: Procedure Laterality Date CYST REMOVAL x 3 Family History Problem Relation Age of Onset Heart Surgery Father 60 x 2 Breast Cancer Sister 31 Cancer Maternal Grandmother Cancer Paternal Grandmother Heart Surgery Paternal Uncle Fibroids Sister Cancer Paternal Grandfather Fibroids Paternal Cousin Allergies Allergen Reactions Amoxicillin Hives Other reaction(s): hives Bactrim [Sulfamethoprim Ds] Other (See Comments) Other reaction(s): vomiting Cephalexin Hives Other reaction(s): hives, stomach upset, vomiting Erythromycin Nausea And Vomiting Other reaction(s): n/v Penicillin Hives Other reaction(s): hives Sulfa (Sulfonamide Antibiotics) Hives Trimethoprim Demerol [Meperidine] GI upset Other reaction(s): GI upset Oxycodone-Acetaminophen GI upset Other reaction(s): GI upset Objective: VS: BP (!) 142/96 (BP Cuff Location: Left arm, BP Patient Position: Sitting, BP Cuff Sizes: Adult, regular) Pulse (!) 106 Wt 77.7 kg (171 lb 4.8 oz) BMI 31.12 kg/m?? Physical Exam Constitutional: Appearance: Normal appearance. HENT: Head: Normocephalic and atraumatic. Pulmonary: Effort: Pulmonary effort is normal. Skin: General: Skin is warm and dry. Neurological: Mental Status: She is alert and oriented to person, place, and time. Assessment/Plan: Diagnoses and all orders for this visit: Adjustment reaction with anxiety and depression Recently increase citalopram to 20 mg daily. Will continue. Gastroesophageal reflux disease without esophagitis - omeprazole; Take 1 Capsule by mouth every morning. Will continue omeprazole 40 mg daily. Planning to follow-up with GI. 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 Was only provided with 8 tablets from the pharmacy. We will look into this to better understand why she was only provided with 8. She does feel like it might be helping reduce her migraines as she has been using less Advil. Neurology referral was also placed and she is waiting to schedule. Return for as scheduled. Speech recognition software was used to complete this progress note. Typographical errors may be present. 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 Reorder 01/25/2023 04/30/2023 documented as of this encounter Care Teams Prepress Specialist Relationship Specialty Start Date End Date Pastora Brewster NP [address] [place] [phone] PCP - General Internal Medicine - Primary Care 02/14/23 documented as of this encounter
--- OUTSIDE RECORDS SUMMARY | 2023-10-14 01:03 | XMS_ITS | Encounter Summary ---
Author Organization [facility] Address [address] [place] [address] Care Team Providers Care Farmworker Livestock Name Role Phone Haven Lawrence MD Primary Care Provider [phone] Reason for Visit * Reason Onset Date Comments Labs Only 01/10/2023 Mammogram 01/10/2023 Encounter Details Date Type Department Care Team ([facility] st Contact Info) Description 01/10/2023 Telephone [facility] Adult Primary Care - [address] [id number] Haven Lawrence MD [address] [place] [address] Labs Only; Mammogram Social History Tobacco Use Types Packs/Day Years [...] care, and heating? Not hard at all 07/05/2021 PHQ-2 Answer Date Recorded PHQ-2 SUBTOTAL 0 07/05/2021 Hunger Vital Sign Answer Date Recorded Within the past 12 months, y ou worried that your food would run out before you got the money to buy more. Never true 07/06/19 22 Within the past 12 months, t he food you bought just didn't last and you didn't have money to get more. Never true 07/05/2021 PRAPARE - Transportation Answer Date Re corded In the past 12 months, has l ack of transportation kept you from medical appointments or from getting medications? No 06/13 In the past 12 months, has l ack of transportation kept you from meetings, work, or from getting things needed for daily living? No 07/05/2021 Housing Stability Vital Sign Answer Tommy e Recorded In the last 12 months, was t here a time when you were not able to pay the mortgage or rent on time? No 07/05/2021 In the last 12 months, how many places have you lived? 1 07/05/2021 In the last 12 months, was t here a time when you did not have a steady place to sleep or slept in a residential (including now)? No 07/05/2021 Interpersonal Safety Answer Date Record ed How often does anyone, dena up family, hit, punch or physically hurt you? Never 07/05/2021 How often does anyone, dena up family, insult, scream, curse or threaten to hurt you? Never 07/05/2021 Sex and Gender Information Value Date Recorded [...] encounter Miscellaneous Notes * Telephone Encounter - Elizabeth Mcgee - 01/11/2023 0844 EST Pt notified * Telephone Encounter - Haven Lawrence - 01/10/2023 1641 EST Please ask patient to have fasting blood work done prior to the visit. * Telephone Encounter - Angus Carroll - 01/10/2023 1532 EST 01/10/23. Scheduled physical for Lexis 01/25/23 at 11:15, if labs are needed, please place. * Telephone Encounter - Madeleine Ogden, ADAM - 01/10/2023 1521 EST Patient due for Physical 06/2022, please schedule, Do you want to put in fasting labs prior to physical * Telephone Encounter - Angus Carroll - 01/10/2023 1453 EST 01/10/23 2:53pm Lexis stopped in, she was in to see Dr. Lawrence in May and thought there were labwork orders placed at that time but there are not any current orders. Also, she believes she needs to have a mammogram, she will call them directly. Please place orders for labs and/or mammogram if need be or if she needs to be seen, please let herknow. CB: [phone] documented in this encounter Plan of Treatment Upcoming Encounters Date Type Department Care Team (Late st Contact Info) Description 12/24/2023 15:30 EST Office Visit [facility] Adult Primary Care - [address] [address] Pastora Brewster, SENIOR AUTOMATION ENGINEER [address] [place] [address] Scheduled Orders Name Type Priority Associated Diagnoses Orde r Schedule COMPREHENSIVE METABOLIC PANEL (CMP) Lab Routine Annual physical exam Expected: 01/10/2023 (Approximate), Expires: 01/11/2024 LIPID PROFILE (INCLUDES CHOLESTEROL, TRIGLYCERIDES, HDL, LDL) Lab Routine Annual physical exam Expected: 01/10/2023 (Approximate), Expires: 01/11/2024 documented as of this encounter Visit Diagnoses Diagnosis Annual physical exam- Primary Routine general medical examination at a health care facility documented in this encounter Care Teams Farmworker Livestock Relationship Specialty Start Date End Date Haven Lawrence MD PCP - General Internal Medicine - Primary Care 01/20/20 02/13/23 documented as of this encounter
--- OUTSIDE RECORDS SUMMARY | 2023-10-14 01:03 | XMS_ITS | Clinical Summary ---
Author Organization [facility] Address [address] [place] [address] Care Team Providers Care Rod Piler Name Role Phone Pastora Brewster NP Primary Care Provider [phone] Allergies Active Allergy Reactions Criticality Noted Date [...] daily. 90 Tablet 3 07/30/2023 Active rizatriptan (MAXALT-STATION HELPER) 10 mg disintegrating tabletIndications:P ersistent migraine aura [...] due for mammo, will get Dx mammo. Encounters Date Type Department Care Team Description 10/02/2023 8:45 EDT Office Visit [address] [id number] Pastora Brewster NP Iron deficiency anemia, unspecified iron deficiency anemia type (Primary Dx); Migraine with aura and without status migrainosus, not intractable; B12 deficiency 08/27/2023 12:50 EDT Phlebotomy Only [facility] - Outpatient Phlebotomy Drawing [address] [place] [address] Lab, [facility] Phlebotomy B12 deficiency; Iron deficiency anemia, unspecified iron deficiency anemia type 08/21/[address] [address] Pastora Brewster NP Results 08/15/2023 13:25 EDT - 08/15/2023 23:59 EDT Hospital Encounter [facility] Endoscopy [address] [place] [address] Atilio Conley MD Iron deficiency anemia, unspecified iron deficiency anemia type Discharge Disposition: Home or Self Care 08/03/[address] [address] Pastora Brewster NP Patient Information Update 07/31/[address] [address] Pastora Brewster NP Medications Refill 07/30/[address] [address] Pastora Brewster CASHIER CLERK Results from Last 3 Months Immunizations Name Administration Dates Next Due Covid-19 mRNA Vaccine (PFIZE R COVID-19) PF 0.3 ml IM (12 yrs+) 02/22/2021,05/11/2020,04/20/2020 Influenza Vaccine Quad PF 0. 5 ml IM (6 mos+) 01/25/2023,12/09/2019,01/23/2019 Td (Adult) 5 Lf Vaccine (TEN IVAC) Preservative Free =>7yo IM 04/04/2012 Tdap Vaccine =>7YO IM 05/15/2022 Surgical History Surgery Date Site/Laterality Comments CYST REMOVAL x 3, ovarian cyst ruptures TONSILLECTOMY Medical History Medical History Date Comments Hx of migraine headaches Depression History of ITP Family History Medical History Relation Comments Heart Surgery Father x 2 Cancer Maternal Grandmother Fibroids Paternal Cousin Cancer Paternal Grandfather Cancer Paternal Grandmother Heart Surgery Paternal Uncle Breast Cancer Sister 1 Fibroids Sister 2 Relation Status Comments Brother 1 Alive Brother 2 Alive Daughter Alive Father Alive Maternal Grandfather Maternal Grandmother Mother Alive Paternal Cousin Alive Paternal Grandfather Paternal Grandmother Paternal Uncle Sister 1 Alive Sister 2 Alive Sister 3 Alive Son Alive Social History Tobacco Use Types Packs/Day Years [...] on file Sexual Orientation Not on file Obstetrics History Para Term AB IAB SAB Ectopic Multiple Livin g Live Births 2 2 2 2 2 Date Outcome GA Total Labor Labor/2nd/3rd Weight Sex Type Anes PTL Isa A1 A5 Name Clin 2002 Term F Livin g Maverick Delivery Location:[facility] 2006 Term M Livin g Katt Carson Delivery Location:[facility] Last Filed Vital Signs Vital Sign Reading [...] Body Mass Index 26.81 10/02/2023 0831 EDT Plan of Treatment Upcoming Encounters Date Type Department Care Team (Late st Contact Info) Description 12/24/2023 15:30 EST Office Visit [facility] Adult Primary Care - [place] [address] [place] [address] Pastora Brewster, CASHIER CLERK [address] [place] [address] Health Maintenance Due Date Last Done Comments Hepatitis C Screen 1978 Pneumococcal Immunization (1 of 2 - PCV) 1984 HIV Screening 1994 Advance Directive 1996 Hepatitis B Vaccine (1 of 3 - 19+ 3-dose series) 1997 COVID-19 Vaccine ( season) 2022 02/22/2021, 05/11/2020, 04/20/2020 Cologuard (Colon Cancer Screening) 05/23/2023 FIT Test (Colon Cancer Screening) 05/23/2023 Sigmoidoscopy (Colon Cancer Screening) 05/23/2023 Influenza Immunization (Adult) (#1) 2023 01/25/2023, 12/09/2019, 01/23/2019 Depression Screening 01/26/2024 01/25/2023, 07/06/19 22 Social Determinants Of Health (SDOH) 01/26/2024 01/25/2023 Preventive Care Visit 01/25/2025 01/25/2023 , 07/05/2021, 06/01/2020, Additional history exists Cervical Cancer Screening 05/12/2025 HPV/Cotest (Cervical Cancer Screening) 05/12/2025 05/12/2020, 05/12/2020 Pap Smear (Cervical Cancer Screening) 05/12/2025 05/12/2020, 04/20/2014, 12/07/2011, Additional history exists Breast Cancer Screening 06/18/2025 06/19/19 24, 05/25/2020, 02/06/2019, Additional history exists Lipid Profile Screening (Cholesterol) 01/26/2028 01/25/2023, 02/03/2019 Tetanus (Adult) Immunization 05/15/2032 05/15/2022, 04/04/2012 Colonoscopy (Colon Cancer Screening) 08/14/2033 08/15/2023 Colorectal Cancer Screening 08/14/2033 Pertussis (Adult) Immunization Completed 05/15/2022 HPV Vaccines Aged Out No longer eligi ble based on patient's age to complete this topic Procedures Procedure Name Priority Date/Time Associated Diagnosis [...] Antibody, IgA <4.0 <20.0 CU 08/28/2023 12:01 [facility] Comment: A negative result may be due to IgA deficiency and does not rule out celiac disease. Negative: <20.0 CU Weak Positive: 20.0-30.0 CU Positive: >30.0 CU Results were obtained with the ObeoA Flash h-tTG IgA chemiluminescent immunoassay. Values obtained with different manufacturers' assay methods may not be used interchangeably. IgA 130 85 - 499 mg/dL 08/28/2023 12:01 [facility] Celiac Disease Interpretation Negative Serology. Celiac disease unlikely. Approximately 10% of patients with celiac disease are seronegative. Patients who are already adhering to a gluten-free diet may also be seronegative. If celiac disease is highly clinically suspected, referral to gastroenterology for additional evaluation is recommended. 08/28/2023 12:01 [facility] Blood VENOUS BLOOD / Unknown Venipuncture / Unknown 08/27/2023 12:53 EDT 08/27/2023 13:48 EDT Pastora Brewster NP IMMUNOLOGY AND SERO LOGY ORDERABLES [facility] [address] [place] [address] * COMPLETE BLOOD COUNT AND DIFFERENTIAL (08/27/2023 12:53 EDT) WBC 7.07 4.00 - 12.40 K/cmm 08/27/2023 13:48 [facility] RBC 4.11 3.86 - 5.04 M/cmm 08/27/2023 13:48 [facility] Hemoglobin 13.4 11.6 - 15.2 g/dL 08/27/2023 13:48 [facility] HCT 39.9 34.9 - 44.4 % 08/27/2023 13:48 [facility] MCV 97 81 - 98 fL 08/27/2023 13:48 [facility] MCH 32.6 26.7 - 33.3 pg 08/27/2023 13:48 [facility] MCHC 33.6 32.1 - 35.9 g/dL 08/27/2023 13:48 [facility] RDW-CV 13.1 <14.7 % 08/27/2023 13:48 [facility] RDW-SD 46.8 <50.4 fl 08/27/2023 13:48 [facility] PLT 296 141 - 377 K/cmm 08/27/2023 13:48 [facility] MPV 10.4 9.5 - 12.7 fL 08/27/2023 13:48 [facility] % Neutrophils 62.9 % 08/27/2023 13:48 [facility] % Lymphocytes 26.9 % 08/27/2023 13:48 [facility] % Monocytes 6.5 % 08/27/2023 13:48 [facility] % Eosinophils 2.3 % 08/27/2023 13:48 [facility] % Basophils 0.7 % 08/27/2023 13:48 [facility] % Immature Grans 0.7 <0.9 % 08/27/19 13:48 [facility] Absolute Neutrophils 4.45 2.20 - 8.85 K/cmm 08/27/2023 13:48 [facility] Absolute Lymphocytes 1.90 1.09 - 3.30 K/cmm 08/27/2023 13:48 [facility] Absolute Monocytes 0.46 0.10 - 0.80 K/cmm 08/27/2023 13:48 [facility] Absolute Eosinophils 0.16 0.03 - 0.61 K/cmm 08/27/2023 13:48 [facility] ABS Basophils 0.05 0.01 - 0.11 K/cmm 08/27/2023 13:48 [facility] Absolute Immature Grans 0.05 0.00 - 0.06 K/cmm 08/27/2023 13:48 EDT [facility] Type of Differential: Auto 08/27/2023 13:48 EDT [facility] Blood VENOUS BLOOD / Unknown Venipuncture / Unknown 08/27/2023 12:53 EDT 08/27/2023 13:44 EDT Pastora Brewster NP PACKAGES & DNA PROB E ORDERABLES Performing Organization Address [facility]/ZIP Co de Phone Number [facility] [address] [place] [address] * FERRITIN (08/27/2023 12:53 EDT) Ferritin 16 11 - 264 ng/mL 08/27/2023 15:45 EDT [facility] Blood VENOUS BLOOD / Unknown Venipuncture / Unknown 08/27/2023 12:53 EDT 08/27/2023 13:47 EDT Narrative [facility] - 08/27/2023 15:45 EDT The results of this assay can be falsely lowered due to the consumption of Biotin. Pastora Brewster NP CHEMISTRY & BLOOD G ORDERABLES Performing Organization Address [facility] de Phone Number [facility] [address] [place] [address] * VITAMIN B12 (08/27/2023 12:53 EDT) Vitamin B12 432 211 - 911 pg/mL 08/27/2023 15:59 EDT [facility] Blood VENOUS BLOOD / Unknown Venipuncture / Unknown 08/27/2023 12:53 EDT 08/27/2023 13:47 EDT Narrative [facility] - 08/27/2023 15:59 EDT The results of this assay can be falsely elevated due to the consumption of Biotin. Pastora Brewster NP CHEMISTRY & BLOOD G ORDERABLES Performing Organization Address [facility]/ZIP Co de Phone Number [facility] [address] [place] [id number] * ECG REPORT - SCANNED (08/17/2023 12:30 EDT) 08/17/2023 12:3 0 EDT Scan 2 Minister Of Religion PROCEDURE/MINOR ANTONELLA GICAL ORDERABLES * UPPER ENDOSCOPY (EGD) (08/15/2023 14:30 EDT) Anatomical Region Laterality Modality Endoscopy Narrative 08/15/2023 14:30 EDT [facility] ?? [address] [facility], [place], [place] [address] ?? Patient Name ?HOWARD RAOS Date of ?1980 Record Number ?[id number] Date/Time of Procedure ?08/15/2023, 02:30:00 PM Endoscopist ?Atilio Conley ?? Maintenance And Custodian Supervisor ? Referring Physician(s) ?? Beth Bahena Anesthesiologist ? Procedure Performed: Upper Endoscopy (EGD) Indications for Exam: Iron deficiency anemia Instruments: ? [id number] ([id number]) Medications: ?Fentanyl 175 mcg, Versed 8 mg, [...] Laterality Modality Endoscopy Narrative 08/15/2023 14:30 EDT [facility] ?? [address] [place] [id number] ?? Patient Name ?HOWARD JOHNSON Date of ?1980 Record Number ?[id number] Date/Time of Procedure ?08/15/2023, 02:30:00 PM Endoscopist ?Atilio Conley ?? Maintenance And Custodian Supervisor ? Referring Physician(s) ?? Beth Bahena Anesthesiologist ? Procedure Performed: COLONOSCOPY Indications for Exam: Screening Colonoscopy. Instruments: ? [facility]-[id number] ([id number]) Medications: ?Versed ??1 mg (patient previously sedated) [...] Brewster NP GI PROCEDURE ORDERA BLES * MA BREAST [...] needed we will contact your patient directly. [id number] Narrative 06/20/2023 8:24 EDT MA BREAST SCREENING [...] other abnormalities are seen. Resulting Agency Comment [id number] Procedure Note Andrew De Leon MD - [...] is needed we will contact yourpatient directly. [id number] Pastora Brewster CASHIER CLERK IMG MAMMOGRAPHY ORD ERABLES * (ABNORMAL) LIPID PROFILE (INCLUDES CHOLESTEROL, TRIGLYCERIDES, HDL, LDL) (01/25/2023 11:55 EST) Cholesterol 195 <200 mg/dL 01/25/2023 15:51 [facility] Comment:Note that therapeuti c goals will differ between patients based on cardiac risk factors and current medical therapy. HDL 49(L) >=50 mg/dl 01/25/2023 15:51 [facility] Comment:Note that therapeuti c goals will differ between patients based on cardiac risk factors and current medical therapy. LDL, Calculated 120 <160 mg/dL 15:51 [facility] Comment:Note that therapeuti c goals will differ between patients based on cardiac risk factors and current medical therapy. Triglyceride 130 <=150 mg/dL 01/25/2023 15:51 [facility] Comment:Note that therapeuti c goals will differ between patients based on cardiac risk factors and current medical therapy. Chol/HDL Ratio 4.0 See Note 01/25/2023 15:51 [facility] Comment: NOTE: Desirable Ratio = <4.1 Patient At Risk Ratio = >5.0(Males) ?>6.0(Females) Non HDL Cholesterol 146 <160 mg/dL 01/25/2023 15:51 [facility] Comment:Note that therapeuti c goals will differ between patients based on cardiac risk factors and current medical therapy. Blood VENOUS BLOOD / Unknown Venipuncture / Unknown 01/25/2023 11:55 EST 01/25/2023 12:01 EST Haven Lawrence MD CHEMISTRY & BLOOD GA S ORDERABLES [facility] [address] [place] [address] * PAP TEST (05/12/2020 9:50 EDT) Specimens A. Cervix and/or Endocervix , ThinPrep Imaging System with Manual Evaluation 05/21/2020 14:[address] [facility] Specimen Adequacy Satisfactory for Evaluation - transformation zone component present 05/21/2020 14:[address] [facility] General Categorization Negative for intraepithelial lesion or malignancy 05/21/2020 14:[address] [facility] Attestation . 05/21/2020 14:[address] [facility] at 1459 Clinical History Clinical History, Signs, Symptoms, Chief Complaint, Pertaining to This Order: See below Last Menstral Period: 04/21/20 05/21/2020 14:[address] [facility] HPV The result for the Human Papillomavirus (HPV) Detection-High Risk Types is Negative. No E6 or E7 mRNA is detected from HPV types 16,18,31,33,35,39 ,45,51,52,56,58,5 9,66, and 68 by real estate consultant mediated amplification.Alvina ting was performed on specimen [id number] and was resulted on 05/21/2020 1457 EDT by NAVEEN, LAB INSTRUMENT RESULTS IN 05/21/2020 14:[address] [facility] Performing Lab [facility] 05/21/2020 14:[address] [facility] Scanned Images 05/21/2020 14:[address] [facility] Papanicolaou smear specimen (specimen) CERVIX UTERI STRUCTURE / Unknown 05/12/2020 9:50 EDT 05/13/2020 14:59 EDT Vicky Pinon MD PATHOLOGY ORDERABLES [facility] [address] [place] [address] from Last 3 Months or Most Recently Relevant to Health Maintenance Care Teams Rod Piler Relationship Specialty Start Date End Date Pastora Brewster NP [address] [place] [address] PCP - General Internal Medicine - Primary Care 02/14/23
--- OUTSIDE RECORDS SUMMARY | 2023-10-14 01:03 | XMS_ITS | Encounter Summary ---
Author Organization [facility] Address [address] [place] [address] Care Team Providers Care [facility] Corpsman Name Role Phone Pastora Brewster NP Primary Care Provider [phone] Encounter Details Date Type Department Care Team (Late st Contact Info) Description 08/27/2023 12:50 EDT Phlebotomy Only [facility] - Outpatient Phlebotomy Drawing [address] [place] [address] Lab, [facility] B12 deficiency; Iron deficiency anemia, unspecified iron deficiency anemia type Social History Tobacco Use Types Packs/Day Years [...] place to sleep or slept in a halfway (including now)? No 01/25/2023 Interpersonal Safety Answer [...] No 05/12/2020 documented as of this encounter Progress Notes * Nakia Flowers LPN - 08/27/2023 1250 EDT Spoke with patient given lab result note from LACY Whitley documented in this encounter Miscellaneous Notes * Result Encounter Note - Pastora Brewster NP - 08/27/2023 1250 EDT Please let Lexis know that her Celiac testing was negative. B12 has improved with oral supplement and should continue. Ferritin is still low normal, but better than previous. Will follow up as planned next month. Thanks documented in this encounter Plan of Treatment Upcoming Encounters Date Type Department Care Team (Late st Contact Info) Description 12/24/2023 15:30 EST Office Visit [facility] Adult Primary Care - [address] [phone] Pastora Brewster NP [address] [place] [phone] documented as of this encounter Procedures Procedure Name Priority Date/Time Associated Diagnosis Comments CELIAC DISEASE PANEL Routine 08/27/2023 12:53 EDT Iron deficiency anemia, unspecified iron deficiency anemia type COMPLETE BLOOD COUNT AND DIFFERENTIAL Routine 08/27/2023 12:53 EDT Iron deficiency anemia, unspecified iron deficiency anemia type FERRITIN Routine 08/27/2023 12:53 EDT Iron deficiency anemia, unspecified iron deficiency anemia type VITAMIN B12 Routine 08/27/2023 12:53 EDT B12 deficiency documented in this encounter Results * COMPLETE BLOOD COUNT AND DIFFERENTIAL (08/27/2023 12:53 EDT) WBC 7.07 4.00 - 12.40 K/cmm 08/27/2023 13:48 EDT [facility] RBC 4.11 3.86 - 5.04 M/cmm 08/27/2023 13:48 EDT [facility] Hemoglobin 13.4 11.6 [...] 0.46 0.10 - 0.80 K/cmm 08/27/2023 13:48 EDT [facility] Absolute Eosinophils 0.16 0.03 - 0.61 K/cmm 08/27/2023 13:48 EDT [facility] ABS Basophils 0.05 [...] DNA PROB E ORDERABLES Performing Organization Address [facility] Co de Phone Number [facility] [address] [place] [address] * FERRITIN (08/27/2023 12:53 EDT) Ferritin 16 11 - 264 ng/mL 08/27/2023 15:45 EDT [facility] Blood VENOUS BLOOD / Unknown Venipuncture / Unknown 08/27/2023 12:53 EDT 08/27/2023 13:47 EDT Narrative [facility] - 08/27/2023 15:45 EDT The results of this assay can be falsely lowered due to the consumption of Biotin. Pastora Brewster NP CHEMISTRY & BLOOD G ORDERABLES Performing Organization Address [facility] Co de Phone Number [facility] [address] [place] [phone] * CELIAC DISEASE PANEL (08/27/2023 12:53 EDT) Tissue Transglutaminase Antibody, IgA <4.0 <20.0 CU 08/28/2023 12:01 EDT [facility] Comment: A negative result may be due to IgA deficiency and does not rule out celiac disease. Negative: <20.0 CU Weak Positive: 20.0-30.0 CU Positive: >30.0 CU Results were obtained with the [employer] Flash h-tTG IgA chemiluminescent immunoassay. Values obtained with different manufacturers' assay methods may not be used interchangeably. IgA 130 85 - 499 mg/dL 08/28/2023 12:01 EDT [facility] Celiac Disease Interpretation Negative Serology. Celiac disease unlikely. Approximately 10% of patients with celiac disease are seronegative. Patients who are already adhering to a gluten-free diet may also be seronegative. If celiac disease is highly clinically suspected, referral to gastroenterology for additional evaluation is recommended. 08/28/2023 12:01 EDT [facility] Blood VENOUS BLOOD / Unknown Venipuncture / Unknown 08/27/2023 12:53 EDT 08/27/2023 13:48 EDT Pastora Brewster NP IMMUNOLOGY AND SERO LOGY ORDERABLES [facility] [address] [place], [place] [phone] * VITAMIN B12 (08/27/2023 12:53 EDT) Vitamin B12 432 211 - 911 pg/mL 08/27/2023 15:59 EDT [facility] Blood VENOUS BLOOD / Unknown Venipuncture / Unknown 08/27/2023 12:53 EDT 08/27/2023 13:47 EDT Narrative [facility] - 08/27/2023 15:59 EDT The results of this assay can be falsely elevated due to the consumption of Biotin. Pastora Brewster NP CHEMISTRY & BLOOD G ORDERABLES [facility] [address] [place] [address] documented in this encounter Visit Diagnoses Diagnosis B12 deficiency Other B-complex deficiencies Iron deficiency anemia, unspecified iron deficiency anemia type documented in this encounter Care Teams Hospital Corpsman Relationship Specialty Start Date End Date Pastora Brewster, LACY [address] [place] [phone] PCP - General Internal Medicine - Primary Care 02/14/23 documented as of this encounter
--- OUTSIDE RECORDS SUMMARY | 2023-10-14 01:03 | XMS_ITS | Encounter Summary ---
Author Organization [facility] Address [address] [place] [address] Care Team Providers Care Legal Service Specialist Name Role Phone Pastora Brewster ENTRY LEVEL RECEPTIONIST Primary Care Provider [phone] Reason for Visit * Reason Onset Date Comments Results 08/21/2023 Encounter Details Date Type Department Care Team ([facility] st Contact Info) Description 08/21/2023 Telephone [facility] Adult Primary Care - [address] [place], [place] [phone] Pastora Brewster ENTRY LEVEL RECEPTIONIST [address] [place] [phone] Results Social History Tobacco Use [...] encounter Miscellaneous Notes * Telephone Encounter - Pastora Brewster NP - 08/21/2023 0921 EDT Normal Upper Endoscopy and Colonoscopy. Recommended celiac testing as possible cause of iron def anemia. I spoke to Lexis. She will have labs done at the hospital, including checking b12, CBC, and Ferritin again. She has been taking b12 supplement. She reports that she is still feeling fatigued. If b12 has not improved, would consider b12 injections. documented in this encounter Plan of Treatment Upcoming Encounters Date Type Department Care Team (Late st Contact Info) Description 12/24/2023 15:30 EST Office Visit [facility] Adult Primary Care - [address] [address] Pastora Brewster NP [address] [place] [phone] documented as of this encounter Results * COMPLETE BLOOD COUNT AND DIFFERENTIAL (08/27/2023 12:53 EDT) WBC 7.07 4.00 - 12.40 K/cmm 08/27/2023 13:48 [facility] RBC 4.11 3.86 - 5.04 M/cmm 08/27/2023 13:48 [facility] Hemoglobin 13.4 11.6 - 15.2 g/dL 08/27/2023 13:48 [facility] HCT 39.9 34.9 - 44.4 % 08/27/2023 13:48 [facility] MCV 97 81 - 98 fL 08/27/2023 13:48 [facility] MCH 32.6 26.7 - 33.3 pg 08/27/2023 13:48 [facility] MCHC 33.6 32.1 - 35.9 g/dL 08/27/2023 13:48 [facility] RDW-CV 13.1 <14.7 % 08/27/2023 13:48 [facility] RDW-SD 46.8 <50.4 fl 08/27/2023 13:48 [facility] PLT 296 141 - 377 K/cmm 08/27/2023 13:48 [facility] MPV 10.4 9.5 - 12.7 fL 08/27/2023 13:48 [facility] % Neutrophils 62.9 % 08/27/2023 13:48 [facility] % Lymphocytes 26.9 % 08/27/2023 13:48 [facility] % Monocytes 6.5 % 08/27/2023 13:48 [facility] % Eosinophils 2.3 % 08/27/2023 13:48 [facility] % Basophils 0.7 % 08/27/2023 13:48 [facility] % Immature Grans 0.7 <0.9 % 08/27/19 13:48 [facility] Absolute Neutrophils 4.45 2.20 - 8.85 K/cmm 08/27/2023 13:48 [facility] Absolute Lymphocytes 1.90 1.09 - 3.30 K/cmm 08/27/2023 13:48 [facility] Absolute Monocytes 0.46 0.10 - 0.80 K/cmm 08/27/2023 13:48 [facility] Absolute Eosinophils 0.16 0.03 - 0.61 K/cmm 08/27/2023 13:48 [facility] ABS Basophils 0.05 0.01 - 0.11 K/cmm 08/27/2023 13:48 [facility] Absolute Immature Grans 0.05 0.00 - 0.06 K/cmm 08/27/2023 13:48 [facility] Type of Differential: Auto 08/27/2023 13:48 [facility] Blood VENOUS BLOOD / Unknown Venipuncture / Unknown 08/27/2023 12:53 EDT 08/27/2023 13:44 EDT Pastora Brewster NP PACKAGES & DNA PROB E ORDERABLES Performing Organization Address [facility] Co de Phone Number [facility] [address] [place] [address] * FERRITIN (08/27/2023 12:53 EDT) [facility] Ferritin 16 11 - 264 ng/mL 08/27/2023 15:45 EDT [facility] Blood VENOUS BLOOD / Unknown Venipuncture / Unknown 08/27/2023 12:53 EDT 08/27/2023 13:47 EDT Narrative [facility] - 08/27/2023 15:45 EDT The results of this assay can be falsely lowered due to the consumption of Biotin. Pastora Brewster NP CHEMISTRY & BLOOD G ORDERABLES Performing Organization Address [facility] de Phone Number [facility] [address] [place] [phone] * CELIAC DISEASE PANEL (08/27/2023 12:53 EDT) [facility] Tissue Transglutaminase Antibody, IgA <4.0 <20.0 CU 08/28/2023 12:01 [facility] Comment: A negative result may be due to IgA deficiency and does not rule out celiac disease. Negative: <20.0 CU Weak Positive: 20.0-30.0 CU Positive: >30.0 CU Results were obtained with the [employer] Flash h-tTG IgA chemiluminescent immunoassay. Values obtained with different manufacturers' assay methods may not be used interchangeably. IgA 130 85 - 499 mg/dL 08/28/2023 12:01 [facility] Celiac Disease Interpretation Negative Serology. Celiac disease unlikely. Approximately 10% of patients with celiac disease are seronegative. Patients who are already adhering to a gluten-free diet may also be seronegative. If celiac disease is highly clinically suspected, referral to gastroenterology for additional evaluation is recommended. 08/28/2023 12:01 T [facility] Blood VENOUS BLOOD / Unknown Venipuncture / Unknown 08/27/2023 12:53 EDT 08/27/2023 13:48 EDT Pastora Brewster NP IMMUNOLOGY AND SERO LOGY ORDERABLES [facility] [address] [place], [place] [phone] documented in this encounter Visit Diagnoses Diagnosis Iron deficiency anemia, unspecified iron deficiency anemia type- Primary documented in this encounter Care Teams Legal Service Specialist Relationship Specialty Start Date End Date Pastora Brewster NP [address] [place] [phone] PCP - General Internal Medicine - Primary Care 02/14/23 documented as of this encounter
--- OUTSIDE RECORDS SUMMARY | 2023-10-14 01:03 | XMS_ITS | Encounter Summary ---
Author Organization [facility] Address [address] [place] [address] Care Team Providers Care Cleaning Team Member Name Role Phone Pastora Brewster LIFE GUARD Primary Care Provider [phone] Reason for Referral * Referral (Routine/Next Available) - Specialty Report Received Specialty Diagnoses / Procedures Referred By [facility] t Referred To Contact Diagnoses Iron deficiency anemia, unspecified iron deficiency anemia type Procedures UPPER ENDOSCOPY (EGD) Pastora Brewster NP [address] [place] [address] [address] Referral ID Status Reason Start Date Expiration Date V isits Requested Visits Authorized [id number] Specialty Report Received 03/30/2023 1 1 * Referral (Routine/Next Available) - Specialty Report Received Specialty Diagnoses / Procedures Referred By Contact Referred To Contact Gastroenterology and Hepatology Diagnoses Iron deficiency anemia, unspecified iron deficiency anemia type Procedures COLONOSCOPY Pastora Brewster NP [address] [place] [address] [address] Referral ID Status Reason Start Date Expiration Date V isits Requested Visits Authorized [id number] Specialty Report Received 03/30/2023 1 1 Reason for Visit * Auth/Cert (Routine) Specialty Diagnoses / Procedures Referred By Dallin ford Referred To Contact Referral ID Status Reason Start Date Expiration Date Visits Re quested Visits Authorized [id number] 1 1 Encounter Details Date Type Department Care Team (Latest Contact Info) Description 08/15/2023 13:25 EDT - 08/15/2023 23:59 EDT Hospital Encounter [facility] [address] [place] [address] Atilio Conley MD [facility] [address] [place] [address] Iron deficiency anemia, unspecified iron deficiency anemia type Discharge Disposition: Home or Self Care Social History Tobacco Use Types Packs/Day Years [...] place to sleep or slept in a fci (including now)? No 01/25/2023 Interpersonal Safety Answer Date Record ed How often does anyone, dena up family, hit, punch or physically hurt you? Never 01/25/2023 How often does anyone, inclsathish jeovanny family, insult, scream, curse or threaten to hurt you? Never 01/25/2023 Sex and Gender Information Value Date Recorded Sex Assigned at Not on file Gender Identity Not on file Sexual Orientation Not on file documented as of this encounter Last Filed Vital Signs Vital Sign Reading Time Taken Comments Blood Pressure 148/92 08/15/2023 1559 EDT Pulse - - Temperature 36.8 ??C (98.3 ??F) 08/15/2023 1559 EDT Respiratory Rate 12 08/15/2023 1559 EDT Oxygen Saturation 98% 08/15/2023 1559 EDT Inhaled Oxygen Concentration - - Weight 70.3 kg (155 lb) 08/15/2023 1352 EDT Height 167.6 cm (5' 6) 08/15/2023 1352 EDT Body Mass Index 25.02 08/15/2023 1352 EDT documented in this encounter Functional Status [...] No 05/12/2020 documented as of this encounter Medications at Time of Discharge Medication Sig Dispensed Refills Start Date End Date citalopram (CELEXA) 20 mg tabletIndications:Adjust ment reaction with anxiety and depression Take 1.5 Tablets by mouth daily. 135 Tablet 3 06/29/2023 Colloidal Oatmeal (EUCERIN ECZEMA RELIEF) 1 % creamIndications:Intrins ic eczema Apply topically 2 times daily. 140 g 2 01/25/2023 cyanocobalamin (VITAMIN B-12) 1,000 mcg tablet Take 1 Tablet by mouth daily. 90 Tablet 3 07/30/2023 ferrous gluconate (FERGON) 324 mg (38 mg iron) tabletIndications:Iron deficiency anemia, unspecified iron deficiency anemia type Take 1 Tablet by mouth daily with breakfast. 90 Tablet 3 03/30/2023 hydrocortisone 2.5 % lotionIndications:Intrin sic eczema Apply twice daily on affected skin 60 mL 1 01/25/2023 ibuprofen (MOTRIN) 200 mg tablet Take 4 Tablets by mouth every 6 hours as needed for Pain. omeprazole (PRILOSEC) 40 mg capsuleIndications:Gastr oesophageal reflux disease without esophagitis Take 1 Capsule by mouth every morning. 90 Capsule 3 04/30/2023 promethazine (PHENERGAN) 25 mg tablet Take 1 Tablet by mouth every 8 hours as needed for Nausea. 24 Tablet 5 01/25/2023 rizatriptan (MAXALT-SEAT TRIMMER) 10 mg disintegrating tabletIndications:Persis tent migraine aura without cerebral infarction and with status migrainosus, not intractable DISSOLVE ONE TABLET ON TONGUE NEEDED FOR MIGRAINE 12 Tablet 3 07/31/2023 rimegepant (NURTEC ODT) 75 mg tablet,disintegratingInd ications:Migraine with aura and without status migrainosus, not intractable Take 1 Tablet by mouth every 48 hours. 45 Tablet 1 03/30/2023 10/02/2023 documented as of this encounter Discharge Disposition Disposition Code Departure Means Destination Home or Self Care documented in this encounter H&P Notes * Atilio Conley MD - 08/15/2023 5220 EDT Endoscopy Sedation for Procedure History & Physical Date: 08/15/2023 Time: 14:41 Location: [facility] Planned Procedure: Colonoscopy/Upper Endoscopy Chief Complaint/Indications for Procedure: Iron deficiency anemia, unspecified iron deficiency anemia type. Screening for colorectal cancer History Previous Complication with Sedation and/or Anesthesia? No Allergies: Allergies Allergen Reactions Amoxicillin Hives Other reaction(s): hives Bactrim [Sulfamethoprim Ds] Other (See Comments) Other reaction(s): vomiting Cephalexin Hives Other reaction(s): hives, stomach upset, vomiting Erythromycin Nausea And Vomiting Other reaction(s): n/v Penicillin Hives Other reaction(s): hives Sulfa (Sulfonamide Antibiotics) Hives Trimethoprim Demerol [Meperidine] GI upset Other reaction(s): GI upset Oxycodone-Acetaminophen GI upset Other reaction(s): GI upset Current Medications: Current Outpatient Medications Medication citalopram (CELEXA) 20 mg tablet Colloidal Oatmeal (EUCERIN ECZEMA RELIEF) 1 % cream cyanocobalamin (VITAMIN B-12) 1,000 mcg tablet ferrous gluconate (FERGON) 324 mg (38 mg iron) tablet hydrocortisone 2.5 % lotion ibuprofen (MOTRIN) 200 mg tablet omeprazole (PRILOSEC) 40 mg capsule promethazine (PHENERGAN) 25 mg tablet rimegepant (NURTEC ODT) 75 mg tablet,disintegrating rizatriptan (MAXALT-SEAT TRIMMER) 10 mg disintegrating tablet Current Facility-Administered Medications Medication Route Frequency sodium chloride 0.9 % (NS) infusion intravenous PRN Or lactated ringers (LR) infusion intravenous PRN lidocaine (PF) 10 mg/mL (1 %) injection 2 mg intradermal PRN lidocaine (PF) 10 mg/mL (1 %) injection 2 mg intradermal PRN ondansetron (PF) (ZOFRAN) injection 4 mg intravenous Once PRN sodium chloride 0.9 % (flush) flush 5 mL intravenous PRN Past Medical History: Past Medical History: Diagnosis Date Depression History of ITP Hx of migraine headaches Social History: Past Surgical History: Procedure Laterality Date CYST REMOVAL x 3, ovarian cyst ruptures TONSILLECTOMY Social History Tobacco Use Smoking status: Every Day Current packs/day: 0.25 Average packs/day: 0.3 packs/day for 28.5 years (7.1 ttl pk-yrs) Types: Cigarettes Start date: 1995 Smokeless tobacco: Never Tobacco comments: smoking 1 cigarette per day Substance Use Topics Alcohol use: Yes Comment: Rarely, on holidays Family History: Family History Problem Relation Age of Onset Heart Surgery Father 60 x 2 Breast Cancer Sister 31 Cancer Maternal Grandmother Cancer Paternal Grandmother Heart Surgery Paternal Uncle Fibroids Sister Cancer Paternal Grandfather Fibroids Paternal Cousin Review of Systems as pertinent: Physical Exam Vital Signs: BP 125/84 (BP Cuff Location: Left arm) Temp 37.4 ??C (99.3 ??F) (Oral) Resp 14 Ht 167.6 cm (66) Wt 70.3 kg (155 lb) SpO2 98% BMI 25.02 kg/m?? Heart Examination: Cardiac Regularity: Regular Respiratory Examination: Respiratory Pattern: Regular Breath Sounds Right: Clear Breath Sounds Left: Clear Abdominal Examination: Additional physical exam related to the proposed procedure, patient activity, disease state and treatment as pertinent: Assessment Previous complications with sedation or anesthesia?: No Airway Concerns: None/NA Anesthesia Classification: ASA 1 Plan: Proceed with sedation for procedure Fasting Time: Date of Last Liquid: 08/15/23 Time of Last Liquid: 1200 Date of Last Solid: 08/14/23 Time of Last Solid: 0800 Patient Appropriate Candidate for Planned Sedation?: Yes Atilio Conley MD 08/15/2023 14:41 documented in this encounter Plan of Treatment Upcoming Encounters Date Type Department Care Team (Late st Contact Info) Description 12/24/2023 15:30 EST Office Visit [facility] - [address] [phone] Pastora Brewster NP [address] [place] [address] documented as of this encounter Procedures Procedure Name Priority Date/Time Associated Diagnosis Comments ECG REPORT - SCANNED 08/17/2023 12:30 EDT UPPER ENDOSCOPY (EGD) Routine 08/15/2023 14:30 EDT Iron deficiency anemia, unspecified iron deficiency anemia type COLONOSCOPY Routine 08/15/2023 14:30 EDT Iron deficiency anemia, unspecified iron deficiency anemia type documented in this encounter Results * ECG REPORT - SCANNED (08/17/2023 12:30 EDT) 08/17/2023 12:3 0 EDT Scan 2 Skip Miner Blasting PROCEDURE/MINOR ANTONELLA GICAL ORDERABLES * UPPER ENDOSCOPY (EGD) (08/15/2023 14:30 EDT) Anatomical Region Laterality Modality Endoscopy Narrative 08/15/2023 14:30 EDT [facility] ?? [address] [address] ?? Patient Name ?HOWARD ELIZABETH Date of ?1980 Record Number ?[id number] Date/Time of Procedure ?08/15/2023, 02:30:00 PM Endoscopist ?Atilio Conley ?? Senior It Specialist ? Referring Physician(s) ?? Beth Bahena Anesthesiologist ? Procedure Performed: Upper Endoscopy (EGD) Indications for Exam: Iron deficiency anemia Instruments: ? [id number] ([id number]) Medications: ?Fentanyl 175 mcg, Versed 8 mg, [...] Laterality Modality Endoscopy Narrative 08/15/2023 14:30 EDT [facility] ?? [address], [place], [place] [address] ?? Patient Name ?HOWARD JOHNSON Date of ?1980 Record Number ?[id number] Date/Time of Procedure ?08/15/2023, 02:30:00 PM Endoscopist ?Atilio Conley ?? Senior It Specialist ? Referring Physician(s) ?? Beth Bahena Anesthesiologist ? Procedure Performed: COLONOSCOPY Indications for Exam: Screening Colonoscopy. Instruments: ? [id number] ([id number]) Medications: ?Versed ??1 mg (patient previously sedated) [...] Pastora Brewster NP GI PROCEDURE ORDERA BLES documented in this encounter Visit Diagnoses Diagnosis Iron deficiency anemia, unspecified iron deficiency anemia type documented in this encounter Administered Medications Inactive Administered Medications - up to 3 most recent administrations Medication Order MAR Action Action Date Dose Rate Site diphenhydrAMINE (BENADRYL) injection intravenous, As needed, Starting on Sun08/15/23 at 1450, Until Sun08/15/23 at 1457, Routine, Intraprocedure Given 08/15/2023 14:57 EDT 25 mg Given 08/15/2023 14:50 EDT 25 mg fentaNYL citrate (PF) injection intravenous, As needed, Starting on Sun08/15/23 at 1444, Until Sun08/15/23 at 1500, Routine, Intraprocedure Given 08/15/2023 15:00 EDT 25 mcg Given 08/15/2023 14:55 EDT 50 mcg Given 08/15/2023 14:46 EDT 50 mcg lactated ringers (LR) infusion 30 mL/hr, intravenous, PRN, Starting on Sun08/15/23 at 1341, Until Sun08/17/23 at 0207, Routine, Preprocedure New Bag 08/15/2023 14:19 EDT 30 mL/hr 30 mL/hr midazolam (VERSED) injection intravenous, As needed, Starting on Sun08/15/23 at 1443, Until Sun08/15/23 at 1508, Routine, Intraprocedure Given 08/15/2023 15:08 EDT 1 mg Given 08/15/2023 15:00 EDT 2 mg Given 08/15/2023 14:55 EDT 2 mg documented in this encounter Orders Medications Ordered That Raulito ht Not Have Been Administered Count Last Ordered Date First Ordered Date lidocaine (PF) 10 mg/mL (1 % ) injection 2 mg 2 08/15/2023 ondansetron (PF) (ZOFRAN) injection 4 mg 1 08/15/2023 sodium chloride 0.9 % (flush) flush 5 mL 1 08/15/2023 sodium chloride 0.9 % (NS) infusion 1 08/14 documented in this encounter Care Teams Cleaning Team Member Relationship Specialty Start Date End Date Pastora Brewster NP [address] [place] [address] PCP - General Internal Medicine - Primary Care 02/14/23 documented as of this encounter
--- OUTSIDE RECORDS SUMMARY | 2023-10-14 01:03 | XMS_ITS | Encounter Summary ---
Author Organization [facility] Address [address] [place] [address] Care Team Providers Care Boring Machine Operator Double End Name Role Phone Pastora Brewster COKE DRAWER Primary Care Provider [phone] Reason for Referral * Consult (Routine/Next Available) - Authorization Not Required Specialty Diagnoses / Procedures Referred By Dallin ford Referred To Contact Diagnoses Migraine with aura and without status migrainosus, not intractable Pastora Brewster NP [address] [place] [address] [facility] [address] [place] [address] Referral ID Status Reason Start Date Expiration Date Visits Requested Visits Authorized [id number] Authorization Not Required Specialty Services Required 4 1 1 Question Answer Reason for Request: Referral for eval and mgt of Migraines. Previously seen. Context of referral: Established Problem Reason for referral: Ongoing care Has patient had a previous OUTSIDE of [facility] neurology evaluation, neuroimaging (MRI or CT of brain or spine) or electrodiagnostic testing (EMG, NCS, EEG)? No * Referral (Routine/Next Available) - Specialty Report Received Specialty Diagnoses / Procedures Referred By Dallin ford Referred To Contact Diagnoses Iron deficiency anemia, unspecified iron deficiency anemia type Procedures UPPER ENDOSCOPY (EGD) Pastora Brewster NP [address] [place] [address] [address] Referral ID Status Reason Start Date Expiration Date V isits Requested Visits Authorized [id number] Specialty Report Received 03/30/2023 1 1 * Referral (Routine/Next Available) - Specialty Report Received Specialty Diagnoses / Procedures Referred By Contact Referred To Contact Gastroenterology and Hepatology Diagnoses Iron deficiency anemia, unspecified iron deficiency anemia type Procedures COLONOSCOPY Patsora Brewster NP [address] [place] [address] [address] Referral ID Status Reason Start Date Expiration Date V isits Requested Visits Authorized [id number] Specialty Report Received 03/30/2023 1 1 Reason for Visit * Reason Comments Follow-up Anemia Encounter Details Date Type Department Care Team (Late st Contact Info) Description 03/30/2023 13:30 EST Office Visit [facility] Adult Primary Care - [address] [phone] Pastora Brewster NP [address] [place] [address] Iron deficiency anemia, unspecified iron [...] place to sleep or slept in a intermediate (including now)? No 01/25/2023 Interpersonal Safety Answer [...] Sign Reading Time Taken Comments Blood Pressure 142/94 03/30/2023 1326 EST Pulse 94 03/30/2023 1326 EST Temperature - - Respiratory Rate 14 03/30/2023 1326 EST Oxygen Saturation - - Inhaled Oxygen Concentration - - Weight - - Height - - Body Mass Index - - documented in this encounter Functional Status Functional [...] Dispensed Refills Start Date End Da te ferrous gluconate (FERGON) 324 mg (38 mg iron) tabletIndications:Iron deficiency anemia, unspecified iron deficiency anemia type Take 1 Tablet by mouth daily with breakfast. 90 Tablet 3 03/30/2023 rimegepant (NURTEC ODT) 75 mg tablet,disintegratingIndi cations:Migraine with aura and without status migrainosus, not intractable Take 1 Tablet by mouth every 48 hours. 45 Tablet 1 03/30/2023 10/02/2023 documented in this encounter Progress Notes * Pastora Brewster, COKE DRAWER - 03/30/2023 1330 EST Patient ID: Howard Johnson is a 42 y.o. female Reason for Visit: Follow-up (Anemia) Subjective: HPI: Howard presents to discuss iron deficiency anemia. Doesn't remember having anemia in the past, has never taken iron. 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 Diet: Junkitarian. Limited veggies, occasional canned green beans. Eats meat <1x/week, canned chicken or small hamburger. Most days eats 1-2 meals of processed carbohydrates. No recent changes in diet. Alcohol: 1 drink per week. Tobacco on and off for years, 2 cigarettes/day on days she smokes. Marijuana occasionally. Periods: somewhat irregular, Had about 8 periods in the last year. 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 Recently having more quarter sized blood clots with periods. Stools: had hard stools with bleeding hemorrhoids in the past, better in the last year. No dark tarry stool or blood in stool. No family hx of colon cancer. Fatigue worse in last year. Reports nausea and vomiting, was 3-4/week over the summer, less recently. Comes on suddenly, vomitsonce, then feels better. Promethazine helps. Wonders if this is a reaction to certain foods, not sure what. Emesis is not bloody. Taking omeprazole 20mg daily, feels like GERD is pretty well managed. Headaches: reports long hx of headaches and migarines, has seen neurology. Tried toperimate and botox without much relief. Takes a lot of advil-- 4-16 200mg tablets per day for years. Takes this at onset of headache to prevent migraine. Doesn't feel like she can ever stop this. ROS: Review of Systems Constitutional: Positive for malaise/fatigue. Negative for chills and fever. Respiratory: Negative for cough and shortness of breath. Cardiovascular: Negative for chest pain and leg swelling. Gastrointestinal: Positive for nausea and vomiting. Negative for abdominal pain and blood in stool. Neurological: Positive for headaches. Endo/Heme/Allergies: Does not bruise/bleed easily. Outpatient Encounter Medications as of 03/30/2023 Medication Sig azithromycin (ZITHROMAX) 250 mg tablet Take 2 tablets (500 mg) on day 1, followed by 1 tablet (250 mg) once daily on days 2 through 5. (Patient not taking: Reported on 03/30/2023) citalopram (CELEXA) 10 mg tablet Take 1 Tablet by mouth daily. (Patient not taking: Reported on 02/12/2023) Colloidal Oatmeal (EUCERIN ECZEMA RELIEF) 1 % cream Apply topically 2 times daily. ferrous gluconate (FERGON) 324 mg (38 mg iron) tablet Take 1 Tablet by mouth daily with breakfast. hydrocortisone 2.5 % lotion Apply twice daily on affected skin hydrOXYzine (ATARAX) 25 mg tablet Take 1 Tablet by mouth at bedtime as needed for Itching. ibuprofen (MOTRIN) 200 mg tablet Take 4 Tablets by mouth every 6 hours as needed for Pain. omeprazole (PRILOSEC) 20 mg capsule Take 1 Capsule by mouth daily. polyethylene glycol (MIRALAX) 17 gram/dose powder Instructions mailed once procedure scheduled. (Patient not taking: Reported on 02/12/2023) promethazine (PHENERGAN) 25 mg tablet Take 1 Tablet by mouth every 8 hours as needed for Nausea. rimegepant (NURTEC ODT) 75 mg tablet,disintegrating Take 1 Tablet by mouth every 48 hours. rizatriptan (MAXALT-SHOE DESIGNER) 10 mg disintegrating tablet DISSOLVE ONE TABLET ON TONGUE NEEDED FOR MIGRAINE No facility-administered encounter medications on file as of 03/30/2023. Past Medical History: Diagnosis Date Depression Hx [...] reaction(s): GI upset Objective: VS: BP (!) 142/94 (BP Cuff Location: Left arm, BP Patient Position: Sitting, BP Cuff Sizes: Adult, regular) Pulse 94 Resp 14 Physical Exam Constitutional: General: She is not in acute distress. Appearance: She is well-developed. She is not diaphoretic. HENT: Head: Normocephalic. Eyes: General: No scleral icterus. Conjunctiva/sclera: Conjunctivae normal. Pupils: Pupils are equal, round, and reactive to light. Cardiovascular: Rate and Rhythm: Normal rate and regular rhythm. Pulmonary: Effort: Pulmonary effort is normal. Breath sounds: Normal breath sounds. Abdominal: General: Abdomen is flat. Bowel sounds are normal. Palpations: Abdomen is soft. There is no mass. Tenderness: There is no abdominal tenderness. There is no guarding. Musculoskeletal: General: Normal range of motion. Skin: General: Skin is warm and dry. Neurological: Mental Status: She is alert and oriented to person, place, and time. Assessment/Plan: Diagnoses and all orders for this visit: Iron deficiency anemia, unspecified iron deficiency anemia type Suspect anemia is likely related to poor diet, possible mild GI bleeding due to significant ibuprofen use, and slightly increased period blood loss. Will start iron supplementation, patient will reach out if she is unable to tolerate this. Will order EGD and colonoscopy to evaluate for causes of anemia. Discussed importance of minimizing ibuprofen use, however, she is precontemplative. - Colonoscopy; Future - Upper Endoscopy (EGD); Future - ferrous gluconate; Take 1 Tablet by mouth daily with breakfast. Migraine with aura and without status migrainosus, not intractable Patient with long history of migraines, taking a significant amount of ibuprofen. Will try Nurtec at prophylactic dose of one tablet every other day. Will refer to neurology for further eval and management. Patient will try to reduce ibuprofen use as tolerated, risks of fpc use reviewed. - Amb Consult/Follow Up Neurology; Future - Nurtec ODT; Take 1 Tablet by mouth every 48 hours. Return in about 3 months (around 06/28/2023) for 30 min, follow up. Crystal Davidson NP Student, 03/30/2023 14:44 I (Pastora Brewster APRN) have seen and discussed this patient's care with the Nurse practitionerstudent, clarified relevant parts of the history and duplicated pertinent parts of the physical exam. The student's documentation represents my personal services provided on this date of service. I performed the history, exam and MDM as described in the student's note, (or except as edited by me, if applicable.) 03/30/23 16:48 documented in this encounter Plan of Treatment Upcoming Encounters Date Type Department Care Team (Late st Contact Info) Description 12/24/2023 15:30 EST Office Visit [facility] Adult Primary Care - [address] [phone] Pastora Brewster NP [address] [place] [phone] Scheduled Referrals Name Type Priority Associated Diagnoses Order Schedule AMB CONS/FOLLOW UP NEUROLOGY Outpatient Referral Routine/Next Available Migraine with aura and without status migrainosus, not intractable Expected: 04/06/2023 (Approximate), Expires: 03/30/2024 documented as of this encounter Results * UPPER ENDOSCOPY (EGD) (08/15/2023 14:30 EDT) Anatomical Region Laterality Modality Endoscopy Narrative 08/15/2023 14:30 EDT [facility] ?? [address], [place], [place] [address] ?? Patient Name ?HOWARD JOHNSON Date of ?1980 Record Number ?[id number] Date/Time of Procedure ?08/15/2023, 02:30:00 PM Endoscopist ?Atilio Conley ?? Events Intern ? Referring Physician(s) ?? Beth Bahena Anesthesiologist ? Procedure Performed: Upper Endoscopy (EGD) Indications for Exam: Iron deficiency anemia Instruments: ? [id number]-[id number] ([id number]) Medications: ?Fentanyl 175 mcg, Versed 8 mg, [...] Laterality Modality Endoscopy Narrative 08/15/2023 14:30 EDT [facility] ?? [address] [place] [id number] ?? Patient Name ?HOWARD JOHNSON Date of ?1980 Record Number ?[id number] Date/Time of Procedure ?08/15/2023, 02:30:00 PM Endoscopist ?Atilio Conley ?? Events Intern ? Referring Physician(s) ?? Beth Bahena Anesthesiologist ? Procedure Performed: COLONOSCOPY Indications for Exam: Screening Colonoscopy. Instruments: ? [id number] ([id number]) Medications: ?Versed ??1 mg (patient previously sedated) [...] intractable migraine without mention of status migrainosus Iron deficiency anemia, unspecified iron deficiency anemia type documented in this encounter Care Teams Boring Machine Operator Double End Relationship Specialty Start Date End Date Pastora Brewster NP [address] [place] [phone] PCP - General Internal Medicine - Primary Care 02/14/23 documented as of this encounter
--- OUTSIDE RECORDS SUMMARY | 2023-10-14 01:03 | XMS_ITS | Encounter Summary ---
Author Organization [facility] Address [address] [place] [address] Care Team Providers Care Material Hauler Name Role Phone Haven Urena MD Primary Care Provider [phone] Reason for Visit * Reason Comments Annual Exam BHS/SDOH completed- no flags- patient would like to discuss depression medication and sleeping problems. 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 No 01/25/2023 Interpersonal Safety Answer [...] Sign Reading Time Taken Comments Blood Pressure 136/88 01/25/2023 1126 EST Pulse 83 01/25/2023 1126 EST Temperature - - Respiratory Rate - - Oxygen Saturation 99% 01/25/2023 1126 EST Inhaled Oxygen Concentration - - Weight 76.2 kg (168 lb) 01/25/2023 1126 EST Height 158 cm (5' 2.21) 01/25/2023 1126 EST Body Mass Index 30.52 01/25/2023 1126 EST documented in this encounter [...] Dispensed Refills Start Date End Da te promethazine (PHENERGAN) 25 mg tablet Take 1 Tablet by mouth every 8 hours as needed for Nausea. 24 Tablet 5 01/25/2023 hydrocortisone 2.5 % lotionIndications:Intr insic eczema Apply twice daily on affected skin 60 mL 1 01/25/2023 Colloidal Oatmeal (EUCERIN ECZEMA RELIEF) 1 % creamIndications:Intri nsic eczema Apply topically 2 times daily. 140 g 2 01/25/2023 polyethylene glycol (MIRALAX) 17 gram/dose powder Instructions mailed once procedure scheduled. 238 g 01/25/2023 07/24/2023 hydrOXYzine (ATARAX) 25 mg tablet Take 1 Tablet by mouth at bedtime as needed for Itching. 90 Tablet 1 01/25/2023 06/29/2023 citalopram (CELEXA) 10 mg tablet Take 1 Tablet by mouth daily. 30 Tablet 2 01/25/2023 04/23/2023 rizatriptan (MAXALT-CERTIFIED LEGAL INVESTIGATOR) 10 mg disintegrating tabletIndications:Pers istent migraine aura without cerebral infarction and with status migrainosus, not intractable DISSOLVE ONE TABLET ON TONGUE NEEDED FOR MIGRAINE 12 Tablet 3 01/25/2023 07/31/2023 omeprazole (PRILOSEC) 20 mg capsuleIndications:Gas troesophageal reflux disease without esophagitis Take 1 Capsule by mouth daily. 180 Capsule 3 01/25/2023 04/30/2023 documented in this encounter Progress Notes * Amblo, Haven - 01/25/2023 1115 EST [facility] [place] [facility] Chief Complaint: History of Present Illness: Lexis Turner is a 42 y.o.female who present follow-up of chronic conditions. Lexis complains of chronic headaches. She was diagnosed with migraine headaches and uses rizatriptan on as-needed basis. She was on topiramate and propranolol but is no longer on these medications. She also uses ibuprofen. GERD is well controlled with omeprazole. She continues to have anxiety and is under a lot of stress right now. She was on citalopram in the past and wonders if she should go back on it. She tolerated it well. She manages pruritic eczema on Eucerin eczema moisturizer. Continues to smoke. Review Of Systems: Negative except as in HPI Past Medical History: Past Medical History: Diagnosis Date Depression Hx of migraine headaches Past Surgical History: Procedure Laterality Date CYST REMOVAL x 3 Family History Problem Relation Age of Onset Heart Surgery Father 60 x 2 Breast Cancer Sister 31 Cancer Maternal Grandmother Cancer Paternal Grandmother Heart Surgery Paternal Uncle Fibroids Sister Cancer Paternal Grandfather Fibroids Paternal Cousin Problem List Patient Active Problem List Diagnosis Chronic migraine Familial hypercholesterolemia Urinary frequency Current smoker Current Medications: Current Outpatient Medications: clotrimazole-betamethasone (LOTRISONE) cream, Apply twice daily to affected skin (Patient not taking: Reported on 01/25/2023), Disp: 15 g, Rfl: 1 Colloidal Oatmeal (EUCERIN ECZEMA RELIEF) 1 % cream, Apply topically 2 times daily., Disp: 140 g, Rfl: 2 hydrocortisone 2.5 % lotion, Apply twice daily on affected skin, Disp: 60 mL, Rfl: 1 ibuprofen (MOTRIN) 200 mg tablet, Take 4 Tablets by mouth every 6 hours as needed for Pain., Disp: , Rfl: omeprazole (PRILOSEC) 20 mg capsule, Take 1 Capsule by mouth daily., Disp: 180 Capsule, Rfl: 3 promethazine (PHENERGAN) 25 mg tablet, Take 1 Tablet by mouth every 8 hours as needed for Nausea., Disp: 24 Tablet, Rfl: 5 rizatriptan (MAXALT-CERTIFIED LEGAL INVESTIGATOR) 10 mg disintegrating tablet, DISSOLVE ONE TABLET ON TONGUE NEEDED FOR MIGRAINE, Disp: 12 Tablet, Rfl: 3 topiramate (TOPAMAX) 50 mg tablet, Take 1 Tablet by mouth at bedtime. (Patient not taking: Reportedon 01/25/2023), Disp: 90 Tablet, Rfl: 3 Allergies: Allergies Allergen Reactions Amoxicillin Hives Other reaction(s): hives Bactrim [Sulfamethoprim Ds] Other (See Comments) Other reaction(s): vomiting Cephalexin Hives Other reaction(s): hives, stomach upset, vomiting Erythromycin Nausea And Vomiting Other reaction(s): n/v Penicillin Hives Other reaction(s): hives Sulfa (Sulfonamide Antibiotics) Hives Trimethoprim Demerol [Meperidine] GI upset Other reaction(s): GI upset Oxycodone-Acetaminophen GI upset Other reaction(s): GI upset Objective: Physical Exam: BP 136/88 (BP Cuff Location: Left arm, BP Patient Position: Sitting, BP Cuff Sizes: Adult, regular) Pulse 83 Ht 158 cm (62.21) Wt 76.2 kg (168 lb) SpO2 99% BMI 30.52 kg/m?? General: Patient is no acute distress, Neck: No lymphadenopathy or thyromegaly Respiratory: Clear bilaterally Cardiac: Regular rate and rhythm, no murmurs Abdomen: Soft, nontender Neurologic: Oriented x 4 Psychiatric: Answers questions appropriately Assessment & Plan by Problems: 1. Annual physical exam Lexis is encouraged to call radiology to schedule a follow-up mammogram. She is up-to-date on Pap test which was done in 2020. - COMPREHENSIVE METABOLIC PANEL (CMP) - COMPLETE BLOOD COUNT AND DIFFERENTIAL - LIPID PROFILE (INCLUDES CHOLESTEROL, TRIGLYCERIDES, HDL, LDL) 2. Need for vaccination Agrees for vaccination. - INFLUENZA VACCINE QUAD PF 0.5 ML IM (6 MOS+) 3. Dermatitis Management with Eucerin cream. 4. Intrinsic eczema Managed with Eucerin cream and hydrocortisone on as-needed basis. - Colloidal Oatmeal (EUCERIN ECZEMA RELIEF) 1 % cream; Apply topically 2 times daily. Dispense: 140g; Refill: 2 - hydrocortisone 2.5 % lotion; Apply twice daily on affected skin Dispense: 60 mL; Refill: 1 5. Gastroesophageal reflux disease without esophagitis Well-controlled. - omeprazole (PRILOSEC) 20 mg capsule; Take 1 Capsule by mouth daily. Dispense: 180 Capsule; Refill: 3 6. 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 - rizatriptan (MAXALT-CERTIFIED LEGAL INVESTIGATOR) 10 mg disintegrating tablet; DISSOLVE ONE TABLET ON TONGUE NEEDED FORMIGRAINE Dispense: 12 Tablet; Refill: 3 7. Colon cancer screening We discussed colon cancer screening and Lexis is agreeable to schedule it next year. - COLONOSCOPY; Future Follow-up in 1 year for annual physical or sooner if needed. Haven Urena. , PhD * Amber Bell, ADAM - 01/25/2023 1115 EST Drug administered? InfluenzaVaccine Quad PF Injection site? Right deltoid Patient Tolerated? Yes Next injection due: TBD Administered By: Dr. Haven Urena documented in this encounter Miscellaneous Notes * Addendum Note - Haven Urena - 01/25/2023 1115 ESTAddended by: HAVEN URENA on: 01/26/2023 16:27 Modules accepted: Orders documented in this encounter Plan of Treatment Upcoming Encounters Date Type Department Care Team (Late st Contact Info) Description 12/24/2023 15:30 EST Office Visit [facility] - [address] [phone] Pastora Brewster NP [address] [place] [address] documented as of this encounter Procedures Procedure Name Priority Date/Time Associated Diagnosis Comments COMPLETE BLOOD COUNT AND DIFFERENTIAL Routine 01/25/2023 11:55 EST Annual physical exam LIPID PROFILE (INCLUDES CHOLESTEROL, TRIGLYCERIDES, HDL, LDL) Routine 01/25/2023 11:55 EST Annual physical exam COMPREHENSIVE METABOLIC PANEL (CMP) Routine 01/25/2023 11:55 EST Annual physical exam documented in this encounter Results * (ABNORMAL) LIPID PROFILE (INCLUDES CHOLESTEROL, TRIGLYCERIDES, HDL, LDL) (01/25/2023 11:55 EST) Cholesterol 195 <200 mg/dL 01/25/2023 15:51 [facility] Comment:Note that therapeuti c goals will differ between patients based on cardiac risk factors and current medical therapy. HDL 49(L) >=50 mg/dl 01/25/2023 15:51 [facility] Comment:Note that therapeuti c goals will differ between patients based on cardiac risk factors and current medical therapy. LDL, Calculated 120 <160 mg/dL 15:51 [facility] Comment:Note that therapeuti c goals will differ between patients based on cardiac risk factors and current medical therapy. Triglyceride 130 <=150 mg/dL 01/25/2023 15:51 [facility] Comment:Note that therapeuti c goals will differ between patients based on cardiac risk factors and current medical therapy. Chol/HDL Ratio 4.0 See Note 01/25/2023 15:51 [facility] Comment: NOTE: Desirable Ratio = <4.1 Patient At Risk Ratio = >5.0(Males) ?>6.0(Females) Non HDL Cholesterol 146 <160 mg/dL 01/25/2023 15:51 [facility] Comment:Note that therapeuti c goals will differ between patients based on cardiac risk factors and current medical therapy. Blood VENOUS BLOOD / Unknown Venipuncture / Unknown 01/25/2023 11:55 EST 01/25/2023 12:01 EST Haven Urena MD CHEMISTRY & BLOOD GA S ORDERABLES [facility] [address] [place] [address] * (ABNORMAL) COMPLETE BLOOD COUNT AND DIFFERENTIAL (01/25/2023 11:55 EST) WBC 5.95 4.00 - 12.40 K/cmm 01/25/2023 15:36 [facility] RBC 4.43 3.86 - 5.04 M/cmm 01/25/2023 15:36 [facility] Hemoglobin 11.0(L) 11.6 - 15.2 g/dL 01/25/2023 15:36 [facility] HCT 36.5 34.9 - 44.4 % 01/25/2023 15:36 [facility] MCV 82 81 - 98 fL 01/25/2023 15:36 [facility] MCH 24.8(L) 26.7 - 33.3 pg 01/25/2023 15:36 [facility] Hypochromia 1+ 01/25/2023 15:36 [facility] MCHC 30.1(L) 32.1 - 35.9 g/dL 01/25/2023 15:36 [facility] RDW-CV 16.6(H) <14.7 % 01/25/2023 15:36 [facility] RDW-SD 49.6 <50.4 fl 01/25/2023 15:36 [facility] Anisocytosis 1+ 01/25/2023 15:36 [facility] PLT 391(H) 141 - 377 K/cmm 01/25/2023 15:36 [facility] MPV 10.5 9.5 - 12.7 fL 01/25/2023 15:36 [facility] % Neutrophils 57.7 % 01/25/2023 15:36 [facility] % Lymphocytes 31.6 % 01/25/2023 15:36 [facility] % Monocytes 7.6 % 01/25/2023 15:36 [facility] % Eosinophils 2.0 % 01/25/2023 15:36 [facility] % Basophils 0.8 % 01/25/2023 15:36 [facility] % Immature Grans 0.3 % 01/26/20 15:36 [facility] Absolute Neutrophils 3.43 2.20 - 8.85 K/cmm 01/25/2023 15:36 [facility] Absolute Lymphocytes 1.88 1.09 - 3.30 K/cmm 01/25/2023 15:36 [facility] Absolute Monocytes 0.45 0.10 - 0.80 K/cmm 01/25/2023 15:36 [facility] Absolute Eosinophils 0.12 0.03 - 0.61 K/cmm 01/25/2023 15:36 [facility] ABS Basophils 0.05 0.01 - 0.11 K/cmm 01/25/2023 15:36 [facility] Absolute Immature Grans 0.02 0.00 - 0.06 K/cmm 01/25/2023 15:36 [facility] Type of Differential: Auto 01/25/2023 15:36 [facility] Blood VENOUS BLOOD / Unknown Venipuncture / Unknown 01/25/2023 11:55 EST 01/25/2023 12:01 EST Haven Urena MD PACKAGES & DNA PROBE ORDERABLES [facility] [address] [place] [address] * (ABNORMAL) COMPREHENSIVE METABOLIC PANEL (CMP) (01/25/2023 11:55 EST) Sodium 139 136 - 145 mmol/L 01/25/2023 15:51 [facility] Potassium 4.1 3.5 - 5.0 mmol/L 01/25/2023 15:51 [facility] Chloride 106 96 - 110 mmol/L 01/25/2023 15:51 [facility] CO2 Total 25 22 - 32 mmol/L 01/25/2023 15:51 [facility] Glucose 100(H) 70 - 99 mg/dl 01/25/2023 15:51 [facility] BUN 10 10 - 26 mg/dL 01/25/2023 15:51 [facility] Creatinine 0.70 0.52 - 1.04 mg/dL 01/25/2023 15:51 [facility] eGFR 109 >60 mL/min/1.7 3m2 01/25/2023 15:51 [facility] Total Protein 7.7 6.3 - 8.2 g/dL 01/25/2023 15:51 [facility] Albumin 4.5 3.4 - 4.9 g/dL 01/25/2023 15:51 [facility] Alkaline Phosphatase 52 38 - 126 U/L 01/25/2023 15:51 [facility] AST 27 15 - 46 U/L 01/25/2023 15:51 [facility] ALT 20 <35 U/L 01/25/2023 15:51 [facility] Bilirubin, Total 0.7 <1.4 mg/dL 01/26/20 15:51 [facility] Calcium 9.3 8.5 - 10.5 mg/dL 01/25/2023 15:51 [facility] Albumin/Globulin Ratio 1.4 1.0 - 2.5 g/dL 01/25/2023 15:51 [facility] Anion Gap 8 5 - 14 mmol/L 01/25/2023 15:51 [facility] Blood VENOUS BLOOD / Unknown Venipuncture / Unknown 01/25/2023 11:55 EST 01/25/2023 12:01 EST Haven Urena MD CHEMISTRY & BLOOD GA S ORDERABLES [facility] [address] [place] [address] documented in this encounter Visit Diagnoses Diagnosis Need for vaccination- Primary Need for prophylactic vaccination and inoculation against unspecified single disease Annual physical exam Routine general medical examination at a health care facility Dermatitis Contact dermatitis and other eczema, due to unspecified cause Intrinsic eczema Gastroesophageal reflux disease without esophagitis Esophageal reflux 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 Abstraction 05/15/2022 01/25/2023 clotrimazole-betamethason e (LOTRISONE) creamIndications:Dermatit is Apply twice daily to affected skin Abstraction 07/05/2021 01/25/2023 topiramate (TOPAMAX) 50 mg tablet Take 1 Tablet by mouth at bedtime. Abstraction 05/15/2022 01/25/2023 promethazine (PHENERGAN) 25 mg tablet Take 1 Tablet by mouth every 8 hours as needed for Nausea. Reorder 05/15/2022 01/23/2023 Colloidal Oatmeal (EUCERIN ECZEMA RELIEF) 1 % creamIndications:Intrinsi c eczema Apply topically 2 times daily. Reorder 05/15/2022 01/23/2023 hydrocortisone 2.5 % lotionIndications:Intrins ic eczema Apply twice daily on affected skin Reorder 05/15/2022 01/23/2023 omeprazole (PRILOSEC) 20 mg capsuleIndications:Gastro esophageal reflux disease without esophagitis Take 1 Capsule by mouth daily. Reorder 07/07/2022 01/23/2023 rizatriptan (MAXALT-CERTIFIED LEGAL INVESTIGATOR) 10 mg disintegrating tabletIndications:Persist ent migraine aura without cerebral infarction and with status migrainosus, not intractable DISSOLVE ONE TABLET ON TONGUE NEEDED FOR MIGRAINE Reorder 11/07/2022 01/23/2023 documented as of this encounter Orders Immunization/Injection Count Last Ordered Date First Ordered Date INFLUENZA VACCINE QUAD PF 0. 5 ML IM (6 MOS+) 1 01/25/2023 documented in this encounter Care Teams Material Hauler Relationship Specialty Start Date End Date Haven Urena MD PCP - General Internal Medicine - Primary Care 01/20/20 02/13/23 documented as of this encounter
--- OUTSIDE RECORDS SUMMARY | 2023-10-14 01:03 | XMS_ITS | Encounter Summary ---
Author Organization [facility] Address [address] [place] [address] Care Team Providers Care Teletype Or Varitype Keyboard Operator Name Role Phone Pastora Brewster NP Primary Care Provider [phone] Reason for Referral * Radiology Services (Routine/Next Available) - Authorization Not Required Specialty Diagnoses / Procedures Referred By Dallin ford Referred To Contact Diagnoses Encounter for screening mammogram for malignant neoplasm of breast Procedures MA BREAST SCREENING ALIYA BILATERAL Pastora Brewster NP [address] [place] [address] [facility] Referral ID Status Reason Start Date Expiration Date Visits Requested Visits Authorized [id number] Authorization Not Required 04/30/2023 1 1 Reason for Visit * Radiology Services (Routine/Next Available) - Authorization Not Required Specialty Diagnoses / Procedures Referred By Dallin ford Referred To Contact Diagnoses Encounter for screening mammogram for malignant neoplasm of breast Procedures MA BREAST SCREENING ALIYA BILATERAL Pastora Brewster NP [address] [place] [address] [facility] Referral ID Status Reason Start Date Expiration Date Visits Requested Visits Authorized [id number] Authorization Not Required 04/30/2023 1 1 Encounter Details Date Type Department Care Team (Latest Contact Info) Description 06/19/2023 15:13 EDT - 06/19/2023 23:59 EDT Hospital Encounter [facility] [address] [place] [address] Encounter for screening mammogram for malignant neoplasm of breast Discharge Disposition: Home or Self Care Social [...] place to sleep or slept in a half-way (including now)? No 01/25/2023 Interpersonal Safety Answer Date Record ed How often does anyone, inclu ding family, hit, punch or physically hurt you? [...] Sig Dispensed Refills Start Date End Date Colloidal Oatmeal (EUCERIN ECZEMA RELIEF) 1 % creamIndications:Intri nsic eczema Apply topically 2 times daily. 140 g 2 01/25/2023 ferrous gluconate (FERGON) 324 mg (38 mg iron) tabletIndications:Iron deficiency anemia, unspecified iron deficiency anemia type Take 1 Tablet by mouth daily with breakfast. 90 Tablet 3 03/30/2023 hydrocortisone 2.5 % lotionIndications:Intr insic eczema Apply twice daily on affected skin 60 mL 1 01/25/2023 ibuprofen (MOTRIN) 200 mg tablet Take 4 Tablets by mouth every 6 hours as needed for Pain. omeprazole (PRILOSEC) 40 mg capsuleIndications:Gas troesophageal reflux disease without esophagitis Take 1 Capsule by mouth every morning. 90 Capsule 3 04/30/2023 promethazine (PHENERGAN) 25 mg tablet Take 1 Tablet by mouth every 8 hours as needed for Nausea. 24 Tablet 5 01/25/2023 azithromycin (ZITHROMAX) 250 mg tabletIndications:Acut e streptococcal pharyngitis Take 2 tablets (500 mg) on day 1, followed by 1 tablet (250 mg) once daily on days 2 through 5. 6 Tablet 02/14/2023 06/29/2023 citalopram (CELEXA) 20 mg tablet Take 1 Tablet by mouth daily. 90 Tablet 3 04/23/2023 06/29/2023 hydrOXYzine (ATARAX) 25 mg tablet Take 1 Tablet by mouth at bedtime as needed for Itching. 90 Tablet 1 01/25/2023 06/29/2023 polyethylene glycol (MIRALAX) 17 gram/dose powder Instructions mailed once procedure scheduled. 238 g 01/25/2023 07/24/2023 rimegepant (NURTEC ODT) 75 mg tablet,disintegratingI ndications:Migraine with aura and without status migrainosus, not intractable Take 1 Tablet by mouth every 48 hours. 45 Tablet 1 03/30/2023 10/02/2023 rizatriptan (MAXALT-ENVIRONMENTAL PROGRAM MANAGER) 10 mg disintegrating tabletIndications:Pers istent migraine aura without cerebral infarction and with status migrainosus, not intractable DISSOLVE ONE TABLET ON TONGUE NEEDED FOR MIGRAINE 12 Tablet 3 01/25/2023 07/31/2023 documented as of this encounter Discharge Disposition Disposition Code Departure Means Destination Home or Self Care documented in this encounter Plan of Treatment Upcoming Encounters Date Type Department Care Team (Late st Contact Info) Description 12/24/2023 15:30 EST Office Visit [facility] - [address] [phone] Pastora Brewster, PLANER OPERATOR [address] [place] [phone] documented as of this encounter Procedures Procedure Name Priority Date/Time Associated Diagnosis Comments MA BREAST SCREENING ALIYA BILATERAL Routine 06/19/2023 15:41 EDT Encounter for screening mammogram for malignant neoplasm of breast documented in this encounter Results * MA BREAST SCREENING ALIYA BILATERAL (06/19/2023 [...] needed we will contact your patient directly. [id number] Narrative 06/20/2023 8:24 EDT MA BREAST SCREENING [...] other abnormalities are seen. Resulting Agency Comment [id number] Procedure Note Andrew De Leon MD - [...] is needed we will contact yourpatient directly. [id number] Pastora Brewster NP IMG MAMMOGRAPHY ORD ERABLES documented in this encounter Visit Diagnoses Diagnosis Encounter for screening mammogram for malignant neoplasm of breast Other screening mammogram documented in this encounter Care Teams Teletype Or Varitype Keyboard Operator Relationship Specialty Start Date End Date Pastora Brewster NP [address] [place] [phone] PCP - General Internal Medicine - Primary Care 02/14/23 documented as of this encounter
--- OUTSIDE RECORDS SUMMARY | 2023-10-14 01:03 | XMS_ITS | Encounter Summary ---
Author Organization [facility] Address [address] [place] [address] Care Team Providers Care Talent Acquisition Associate Name Role Phone Haven Lawrence MD Primary Care Provider [phone] Reason for Referral * Consult (Routine/Next Available) - Closed Specialty Diagnoses / Procedures Referred By Dallin fodr Referred To Contact Otolaryngology Diagnoses Sore throat Ashly Allred PA-C [address] [place] [address] [place] [address] [facility] [address] [place] [address] Referral ID Status Reason Start Date Expiration Date V isits Requested Visits Authorized [id number] Closed Specialty Services Required 02/12/2023 1 1 Question Answer Reason for Request: Other Please specify: Hx of tonsillectomy. 2 weeks of persistent extreme sore throat. Current smoker. Neg strep and mono. Reason for Visit * Reason Comments Sore Throat Encounter Details Date Type Department Care Team (Late st Contact Info) Description 02/12/2023 9:30 EST [facility] - [address] [address] Ashly Allred PA-C [address] [place] [id number] Sore throat (Primary Dx); Laryngitis Social History Tobacco Use Types Packs/Day Years [...] Never 01/25/2023 How often does anyone, inclu ding family, insult, scream, curse or threaten to hurt you? Never 01/25/2023 Sex and Gender Information Value Date Recorded Sex Assigned at Not on file Gender Identity Not on file Sexual Orientation Not on file documented as of this encounter Last Filed Vital Signs Vital Sign Reading Time Taken Comments Blood Pressure 148/73 02/12/2023916 EST Pulse 85 02/12/2023916 EST Temperature 36.7 ??C (98.1 ??F) 02/12/2023 09 EST Respiratory Rate 18 02/12/2023916 EST Oxygen Saturation 100% 02/12/2023916 EST Inhaled Oxygen Concentration - - Weight - [...] as of this encounter Progress Notes * Conchis Stephens, RN - 02/12/2023929 EST CC/HPI: Sick for 13 days. 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 Negative COVID tests on 02/04 and 02/07. No tylenol or ibu today. Fever range: 99.4 - 100.3 Covid Screening: In the last 72 hours, has the patient had: New or unusual cough, shortness of breath, new nasal congestion, sore throat, fever, chills, body aches, or new loss of taste or smell without a reasonable alternative diagnosis*? (If yes, assign to ARC)- yes In the past 10 days, has the patient had a positive Covid test OR a confirmed close Covid exposure (<6ft for > 15mins in 24hr period)? (if yes, assign to ARC, regardless of vaccination status)-no *may be determined by RN or in discussion with available provider (PETROLEUM ENGINEERING TEACHER's and CCA's can defer to Charge Nurse to complete triage when appropriate) PCP: Haven Lawrence * America Rosas MA - 02/12/2023 0930 EST Fingerstick done per providers request on right index finger. Patient tolerated well, dressings applied. 02/12/23 10:26 * Ashly Allred PA-C - 02/12/2023 0930 EST [facility] Chief Complaint(s): Chief Complaint Patient presents with Sore Throat Assessment & Plan: 1. Sore throat POCT RAPID STREP SCREEN POCT MONOSPOT AMB CONS/FOLLOW UP ENT GROUP A STREP CULTURE New Prescriptions No medications on file Results for orders placed or performed in visit on 02/12/23 POCT RAPID STREP SCREEN Result Value Ref Range Rapid Strep Test, POC Negative Negative Background Clear? Yes Control Line Present Yes Rgt A + Rgt B= Yellow: Yes Culture Sent to Lab? No POCT MONOSPOT Result Value Ref Range Monospot, POC Negative QC Value Positive Pt with 2 weeks of R side sore throat and intermittent fever up to 100.4 Hx significant for tobacco use. Pt with neg mono and RST. No visible swelling or asymmetry Sore throat may be related to PND, she will use flonase. Symptoms may be viral in nature. Throat swab sent for culture. Referral to ENT sent given duration and smoking history. We discussed continued voice rest, lozenges, ibuprofen, tylenol, chloraseptic spray. HPI: This patient, current smoker, presents with concern for right side throat pain x 2 weeks. Intermittent fevers up to 100.4F Tylenol and ibuprofen with minimal effect. She does feel some PND. The patient denies cough. No shortness of breath. No weight loss No visible neck swelling. The history is provided by the patient. ROS: Review of Systems Constitutional: Positive for fever. HENT: Positive for sore throat. Negative for congestion. Objective: Vitals and nursing notes reviewed Examination: BP (!) 148/73 (BP Cuff Location: Left arm, BP Patient Position: Sitting, BP Cuff Sizes: Adult, regular) Pulse 85 Temp 36.7 ??C (98.1 ??F) (Oral) Resp 18 SpO2 100% Physical Exam Constitutional: General: She is not in acute distress. Appearance: Normal appearance. HENT: Right Ear: Tympanic membrane normal. Left Ear: Tympanic membrane normal. Mouth/Throat: Comments: No trismus. Tonsils absent. Soft palate symmetric, pink. Uvula midline. No angioedema. +laryngitis Eyes: Conjunctiva/sclera: Conjunctivae normal. Neck: Comments: Parotid pain on the right, no asymmetry. No redness or swelling. No warmth. Cardiovascular: Rate and Rhythm: Normal rate and regular rhythm. Musculoskeletal: Cervical back: Normal range of motion. No tenderness. Lymphadenopathy: Cervical: No cervical adenopathy. Skin: General: Skin is warm and dry. Neurological: Mental Status: She is alert. Gait: Gait normal. An appropriate medical screening examination was performed. The patient was assessed prior to discharge and deemed stable for discharge home. This note may be in part documented using voice dictation software. Please forgive any errors or omissions that may result from use of dictation. documented in this encounter Plan of Treatment Upcoming Encounters Date Type Department Care Team (Late st Contact Info) Description 12/24/2023 15:30 EST Office Visit [facility] Adult Primary Care - [address] [id number] Pastora Brewster NP [address] [place] [phone] Scheduled Referrals Name Type Priority Associated Diagnoses Order Schedule AMB CONS/FOLLOW UP ENT Outpatient Referral Routine/Next Available Sore throat Expected: 02/19/2023 (Approximate), Expires: 02/13/2024 documented as of this encounter Procedures Procedure Name Priority Date/Time Associated Diagnosis Comments GROUP A STREP CULTURE Routine 02/12/2023 11:39 EST Sore throat POCT MONOSPOT STAT 02/12/2023 Sore throat POCT RAPID STREP SCREEN Routine 02/12/2023 Sore throat documented in this encounter Results * (ABNORMAL) GROUP A STREP CULTURE (02/12/2023 11:39 EST) Organism ID Usual Oropharyngeal Michelle 02/14/2023 11:13 EST [facility] Organism ID Rare Streptococcus Not Group A beta hemolytic(A) 02/14/2023 11:13 EST [facility] Swab ORAL / Unknown Swab / Unknown 02/12/2023 11:39 EST 02/12/2023 11:39 EST Ashly ARMIJO-C MICROBIOLOGY - GE NERAL ORDERABLES Performing Organization Address [facility]/ZIP Co de Phone Number [facility] [address] [place] [address] * POCT MONOSPOT (02/12/2023) Monospot, POC Negative [facility] QC Value Positive [facility] Blood CAPILLARY BLOOD / Unknown 02/12/2023 Ashly Allred PA-C POINT OF CARE LACI T ORDERABLES Performing Organization Address [facility]/ZIP Co de Phone Number [facility] * POCT RAPID STREP SCREEN (02/12/2023) Rapid Strep Test, POC Negative Negative [facility] Background Clear? Yes [facility] Control Line Present Yes [facility] Rgt A + Rgt B= Yellow: Yes [facility] Culture Sent to Lab? No [facility] Swab PHARYNGEAL STRUCTURE / Unknown 02/12/2023 Ashly Allred PA-C POINT OF CARE LACI T ORDERABLES [facility] documented in this encounter Visit Diagnoses Diagnosis Sore throat- Primary Acute pharyngitis Laryngitis Acute laryngitis, without mention of obstruction documented in this encounter Care Teams Talent Acquisition Associate Relationship Specialty Start Date End Date Haven Lawrence MD PCP - General Internal Medicine - Primary Care 01/20/20 02/13/23 documented as of this encounter
--- OUTSIDE RECORDS SUMMARY | 2023-10-14 01:03 | XMS_ITS | Encounter Summary ---
Author Organization [facility] Address [address] [place] [address] Care Team Providers Care Media Relations Director Name Role Phone Pastora Brewster COMMERCIAL LINES ASSISTANT Primary Care Provider [phone] Reason for Visit * Reason Onset Date Comments Medication Questions 04/20/2023 Encounter Details Date Type Department Care Team ([facility] st Contact Info) Description 04/20/2023 Telephone [facility] Adult Primary Care - [place] [address] [place], [place] [phone] Pastora Brewster COMMERCIAL LINES ASSISTANT [address] [place] [address] Medication Questions Social History Tobacco Use Types Packs/Day Years [...] place to sleep or slept in a jail (including now)? No 01/25/2023 Interpersonal Safety Answer [...] End Da te citalopram (CELEXA) 20 mg tablet Take 1 Tablet by mouth daily. 90 Tablet 3 04/23/2023 06/29/2023 documented in this encounter Miscellaneous Notes * Telephone Encounter - Ingrid Shah RN - 04/24/2023 1528 EDT Lexis is scheduled. * Telephone Encounter - Pastora Brewster NP - 04/23/2023 1203 EDT I sent in increase- citalopram 20mg daily. Lets schedule an appointment to follow up on this, next available 30 min. I suspect that her insurance did not cover Nurtec as a prophylactic and that is why she only received 8 tabs per month. We can discuss this further at her appointment. Thank you. * Telephone Encounter - Ingrid Shah RN - 04/23/2023 0933 EDT Pastora: Would you like her to schedule an OV to discuss increase in citalopram? * Telephone Encounter - Monet Cox - 04/20/2023 1349 EST [place] patient calling to see if she can get her dosage increase on her Citalopram she has restarted taking it at 10mg but wants to do higher as she is under a lot of situational stress right now Kaylin Stahl Patient also had questions on her Nurtec she only received 8 pills was this because it was mid month? [phone] documented in this encounter Plan of Treatment Upcoming Encounters Date Type Department Care Team (Late st Contact Info) Description 12/24/2023 15:30 EST Office Visit [facility] Adult Primary Care - [address] [address] Pastora Brewster NP [address] [place] [phone] documented as of this encounter Visit Diagnoses Not on filedocumented in this encounter Discontinued Medications Medication Sig Discontinue Reason Start Date End Da te citalopram (CELEXA) 10 mg tablet Take 1 Tablet by mouth daily. Reorder 01/25/2023 04/23/2023 documented as of this encounter Care Teams Media Relations Director Relationship Specialty Start Date End Date Pastora Brewster NP [address] [place] [phone] PCP - General Internal Medicine - Primary Care 02/14/23 documented as of this encounter
--- OUTSIDE RECORDS SUMMARY | 2023-10-14 01:04 | XMS_ITS | Encounter Summary ---
Author Organization [facility] Address [address] [place] [address] Care Team Providers Care Verify Rep Name Role Phone Haven Lawrence MD Primary Care Provider [phone] Reason for Visit * Reason Comments Cough Fever Otalgia Encounter Details Date Type Department Care Team (Late st Contact Info) Description 05/29/2021 9:30 EDT Office Visit [facility] [address] [place], [place] [address] Meera Robb NP [address] [facility] [address] [place], [place] [address] Urinary frequency (Primary Dx); Flu-like symptoms Social History Tobacco Use Types Packs/Day Years [...] more drinks on one occasion? Never 06/01/2020 Interpersonal Safety Answer Date Record ed Physically Hurt Never 09/14/2019 Verbally Threaten Not on file 09/14/2019 Sex and Gender Information Value Date Recorded Sex Assigned at Not on file Gender Identity Not on file Sexual Orientation Not on file documented as of this encounter Last Filed Vital Signs Vital Sign Reading Time Taken Comments Blood Pressure 153/80 05/29/2021 0952 EDT Pulse 100 05/29/2021 0952 EDT Temperature 38.3 ??C (101 ??F) 05/29/2021 0952 EDT Respiratory Rate 24 05/29/2021 0952 EDT Oxygen Saturation 100% 05/29/2021 0952 EDT Inhaled Oxygen Concentration - - Weight - - Height - - Body Mass Index - - documented in this encounter Functional Status Functional Status Response Date of Assess ment Because of a physical, menta l, or emotional condition, does this person have difficulty doing errands alone such as visiting a doctor's office or shopping? No 05/12/2020 Cognitive Status Response Date of Assessm ent Because of a physical, menta l, or emotional condition, does this person have serious difficulty concentrating, remembering, or making decisions? No 05/12/2020 documented as of this encounter Patient Instructions * Patient Instructions* Meera Robb NP - 05/29/2021 9:30 EDT I believe that you have the flu. Tamiflu should be started within 48 hours of onset of symptoms to be most effective. Please reach out if you change your mind about this. Cannot confirm for sure whether or not you have the flu versus Covid without testing. Your lungs are clear and your oxygen is normal so I do not think that you have pneumonia. Your ears do not look infected. Please drink plenty of fluids. Continue with Tylenol and/or Advil as needed for fever and body aches. I prescribed an alternative cough medication. Please go the emergency department if shortness of breath is worsening or you are unable to hydrate. Please be seen again if ear pain is worsening. documented in this encounter Ordered Prescriptions Prescription Sig Dispensed Refills Start Date End Da te benzonatate (TESSALON) 100 mg capsule Take 1 capsule by mouth 3 times daily as needed for up to 7 days for Cough. 30 capsule 05/29/2021 06/05/2021 documented in this encounter Progress Notes * Pauline Borjas RN - 05/29/2021 0930 EDT * Gali Mar LPN - 05/29/2021 0930 EDT CC/HPI: Covid Screening: In the last 72 hours, has the patient had: New or unusual cough, shortness of breath, new nasal congestion, sore throat, fever, chills, body aches, or new loss of taste or smell without a reasonable alternative diagnosis*? (If yes, assign to ARC) COUGH,SOB,NASAL CONGESTION,FEVER,BODY ACHES In the past 10 days, has the patient had a positive Covid test OR a confirmed close Covid exposure (<6ft for > 15mins in 24hr period)? (if yes, assign to ARC, regardless of vaccination status) NO Is the patient fully Covid vaccinated? YES-PLUS BOOSTER Approximate date of last dose? BOOSTER IN 02/2021 *may be determined by RN or in discussion with available provider (C PROGRAMMER's and CCA's can defer to Charge Nurse to complete triage when appropriate) PCP: Haven Lawrence * Conchis Stephens RN - 05/29/2021 0930 EDT Symptoms started Sunday 1500 mg Tylenol at 530 am this morning Body aches Has not slept for past few nights Had COVID nov 2020 Ears are popping * Meera Robb NP - 05/29/2021 0930 EDT [facility] Chief Complaint(s): Cough, Fever, and Otalgia HPI: 41-year-old female presenting to [place] express care for fever, cough and earache x 2 days. StartedFriday - mid afternoon. Worsening. Chest on fire and hurts from coughing. She has body pain from head to toe. Robitussen tyelnol and advil (last does 5:30 this am) No sick contacts Not flu vaccinated Occasional smoker No asthma No immunosuppression Drinking fluids but as a small bladder and up 30 times to urinate I have reviewed current problem list and current medications. ROS: Review of Systems Constitutional: Positive for chills, fever and malaise/fatigue. HENT: Positive for congestion (runny), ear pain and sore throat (with coughiing). Respiratory: Positive for cough and shortness of breath. Cardiovascular: Positive for chest pain. Gastrointestinal: Negative for abdominal pain, diarrhea, nausea and vomiting. Genitourinary: Negative for dysuria. Musculoskeletal: Positive for myalgias. Neurological: Negative for headaches. Objective: Examination: Vitals: BP (!) 153/80 (BP Cuff Location: Right arm, BP Patient Position: Sitting, BP Cuff Sizes: Adult, regular) Pulse 100 Temp 38.3 ??C (101 ??F) (Oral) Resp 24 SpO2 100% There is no height or weight on file to calculate BMI. Physical Exam Constitutional: Appearance: She is ill-appearing. She is not toxic-appearing. HENT: Right Ear: Tympanic membrane, ear canal and external ear normal. Tympanic membrane is not erythematous, retracted or bulging. Left Ear: Tympanic membrane, ear canal and external ear normal. Tympanic membrane is not erythematous, retracted or bulging. Mouth/Throat: Mouth: Mucous membranes are moist. Pharynx: Oropharynx is clear. Uvula midline. No pharyngeal swelling, oropharyngeal exudate or posterior oropharyngeal erythema. Cardiovascular: Rate and Rhythm: Tachycardia present. Heart sounds: Normal heart sounds. Pulmonary: Effort: Pulmonary effort is normal. Breath sounds: Normal breath sounds. No decreased breath sounds, wheezing, rhonchi or rales. Neurological: Mental Status: She is alert. Data reviewed with patient (past results): Results for orders placed or performed in visit on 05/29/21 POCT URINE DIPSTICK, VISUAL READ Result Value Ref Range Color, UA Yellow Clarity, UA Clear Glucose, UA Negative . mg/dL Bilirubin, UA Negative Negative Ketones, UA Negative . mg/dL Spec Grav, UA 1.020 1.005 - 1.030 Blood, UA Trace (A) Negative pH, UA 8.5 (A) 4.6 - 8.0 Protein, UA Trace (A) . mg/dL Urobilinogen, UA 0.2 0.2 - 1.0 E.U./dL Nitrite, UA Negative . Leuk Esterase Negative Negative Comment Assessment & Plan: 41-year-old female, occasional smoker, with onset of fever, cough, body aches, ear pain 2 days ago.She is feeling short of breath. She is fully Covid vaccinated. She is not flu vaccinated. In clinic she has a temp of 101 and is mildly tachycardic. She appears ill but nontoxic. Her exam is nonfocal. She does not appear to have an ear infection. Her lungs are moving air well. Her oxygen is 100%. I do not suspect pneumonia. She has been having urinary frequency, which she does have at baseline, but more-so now. Will checkurine. I am most suspicious for influenza. She declines both Covid and influenza testing. She is within the window for treatment for Tamiflu but she declines this. We will try benzonatate to help with the cough Recommended lots of fluids and continuation of Tylenol ibuprofen for body aches. ED if shortness of breath is worsening or she is unable to hydrate Reevaluation if ear pain worsening 1. Flu-like symptoms 2. Urinary frequency Urine dip without evidence of infection, will culture. - POCT URINE DIPSTICK, VISUAL READ documented in this encounter Miscellaneous Notes * Addendum Note - Meera Robb NP - 05/29/2021 0930 EDTAddended by: MEERA ROBB on: 05/29/2021 11:39 Modules accepted: Orders documented in this encounter Plan of Treatment Upcoming Encounters Date Type Department Care Team (Late st Contact Info) Description 12/24/2023 15:30 EST Office Visit [facility] Adult Primary Care - [address] [address] Pastora Brewster NP [address] [place] [phone] documented as of this encounter Procedures Procedure Name Priority Date/Time Associated Diagnosis Comments BACTERIAL CULTURE, URINE Routine 05/29/2021 11:29 EDT Urinary frequency POCT URINE DIPSTICK, VISUAL READ Routine 05/29/2021 Urinary frequency documented in this encounter Results * BACTERIAL CULTURE, URINE (05/29/2021 11:29 EDT) Organism ID Less than 10,000 CFU/ml VITEK SUSCEPTIBILITY 05/30/2021 12:11 EDT [facility] Comment:Usual urogenital esmer ra. Urine URINE SPECIMEN COLLECTION, CLEAN CATCH / Unknown Urine Collect / Unknown 05/29/2021 11:29 EDT 05/29/2021 11:29 EDT Meera Robb NP MICROBIOLOGY - GENER AL ORDERABLES Performing Organization Address City/State/[facility] Co de Phone Number [facility] [address] [place] [address] * (ABNORMAL) POCT URINE DIPSTICK, VISUAL READ (05/29/2021) Color, UA Yellow [facility] POIN T OF CARE Clarity, UA Clear [facility] PO INT OF CARE Glucose, UA Negative . mg/dL [facility] PO INT OF CARE Bilirubin, UA Negative Negative [facility]INT [facility] Ketones, UA Negative . mg/dL [facility] PO INT OF CARE Spec Grav, UA 1.020 1.005 - 1.030 [facility] Blood, UA Trace(A) Negative [facility] POIN T [facility] C[facility] pH, UA 8.5(A) 4.6 - 8.0 [facility] PO[facility] T [facility] Protein, UA Trace(A) . mg/dL [facility] PO INT OF CARE Urobilinogen, UA 0.2 0.2 - 1.0 E.U./dL [facility] Nitrite, UA Negative . [facility] PO INT OF CARE Leuk Esterase Negative Negative [facility] Comment [facility] POIN T [facility] Urine URINE SPECIMEN COLLECTION, CLEAN CATCH / Unknown 05/29/2021 Meera Robb NP POINT OF CARE TEST O RDERABLES [facility] documented in this encounter Visit Diagnoses Diagnosis Urinary frequency- Primary Flu-like symptoms Influenza with other respiratory manifestations documented in this encounter Care Teams Verify Rep Relationship Specialty Start Date End Date Haven Lawrence MD PCP - General Internal Medicine - Primary Care 01/20/20 02/13/23 documented as of this encounter
--- OUTSIDE RECORDS SUMMARY | 2023-10-14 01:04 | XMS_ITS | Encounter Summary ---
Author Organization [facility] Address [address] [place] [address] Care Team Providers Care Reptile Keeper Name Role Phone Sally Malcolm VIDEO TAPE TRANSFERRER Primary Care Provider [phone] Encounter Details Date Type Department Care Team (Late st Contact Info) Description 12/30/2019 Results Only [facility] [address] [phone] Carolina Son MD [address] [facility] [address] [place], [place] [address] Social History Tobacco Use Types Packs/Day Years Used Date Smoking Tobacco: Every Day Cigarettes 0.3 28.7 Started: 1995 Smokeless Tobacco: Never Alcohol Use Standard Drinks/Week Comments Yes 0 (1 standard drink = 0.6 oz pur e alcohol) AUDIT-C Answer Date Recorded Frequency of Alcohol Consumption Monthly or less 01/23/2019 Average Number of Drinks 1 or 2 019 Frequency of Binge Drinking Never 01/12 Interpersonal Safety Answer Date Record ed Physically Hurt Never 09/14/2019 Verbally Threaten Not on file 09/14/2019 Sex and Gender Information Value Date Recorded Sex Assigned at Not on file Gender Identity Not on file Sexual Orientation Not on file documented as of this encounter Plan of Treatment Upcoming Encounters Date Type Department Care Team (Late st Contact Info) Description 12/24/2023 15:30 EST Office Visit [facility] Adult Primary Care - [address] [phone] Pastora Brewster NP [address] [place] [phone] documented as of this encounter Procedures Procedure Name Priority Date/Time Associated Diagnosis Comments COVID-19 TESTING Routine 12/30/2019 9:30 EST documented in this encounter Results * COVID-19 TESTING (12/30/2019 9:30 EST) COVID-19 rt-PCR Result Not Detected 12/30/2019 12:33 EST [facility] Comment: The 2019 novel coronavirus (SARS-CoV-2) target nucleic acids are not detected. 12/30/2019 9:30 EST 12/30/2019 11:10 EST Carolina Son MD MICROBIOLOGY - GENER AL ORDERABLES [facility] [address] [place] [address] documented in this encounter Visit Diagnoses Not on filedocumented in this encounter Care Teams Reptile Keeper Relationship Specialty Start Date End Date Sally Malcolm NP PCP - General 12/17/18 01/19/20 documented as of this encounter
--- OUTSIDE RECORDS SUMMARY | 2023-10-14 01:04 | XMS_ITS | Encounter Summary ---
Author Organization [facility] Address [address] [place] [address] Care Team Providers Care Dairy Truck Driver Name Role Phone Haven Lawrence MD Primary Care Provider [phone] Reason for Visit * Reason Comments Medications Refill Encounter Details Date Type Department Care Team (Late st Contact Info) Description 11/07/2022 Refill [facility] Adult Primary [facility] - [place] [address], [place] [phone] Haven Lawrence MD [address] [place], [place] [phone] Medications Refill Social History Tobacco Use Types [...] slept in a alf (including now)? No 07/05/2021 Interpersonal Safety Answer [...] Refills Start Date End Da te rizatriptan (MAXALT-STENO POOL SUPERVISOR) 10 mg disintegrating tabletIndications:Persist ent migraine aura without cerebral infarction and with status migrainosus, not intractable DISSOLVE ONE TABLET ON TONGUE NEEDED FOR MIGRAINE 12 Tablet 3 11/07/2022 01/23/2023 documented in this encounter Miscellaneous Notes * Telephone Encounter - Jeremy Pereira RN - 11/07/2022 1331 EDT Medication(s) Requested: Rizatriptan Preferred Pharmacy: [facility] Are visits in compliance? Yes Last Refill Date: 05/15/2022 Recent Visits Date Type Provider Dept 05/15/22 Office Visit Haven Lawrence MD [facility] [place] 07/05/21 Office Visit Haven Lawrence MD [facility] [place] Showing recent visits within past 540 days with a meds authorizing provider and meeting all other requirements Future Appointments No visits were found meeting these conditions. 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, not intractable- Primary Persistent migraine aura without cerebral infarction, without mention of intractable migraine with status migrainosus documented in this encounter Discontinued Medications Medication Sig Discontinue Reason Start Date End Da te rizatriptan (MAXALT-STENO POOL SUPERVISOR) 10 mg disintegrating tabletIndications:Persist ent migraine aura without cerebral infarction and with status migrainosus, not intractable DISSOLVE ONE TABLET IN MOUTH NEEDED for migraine 05/15/2022 11/07/2022 documented as of this encounter Care Teams Dairy Truck Driver Relationship Specialty Start Date End Date Haven Lawrence MD PCP - General Internal Medicine - Primary Care 01/20/20 02/13/23 documented as of this encounter
--- OUTSIDE RECORDS SUMMARY | 2023-10-14 01:04 | XMS_ITS | Encounter Summary ---
Author Organization [facility] Address [address] [place] [address] Care Team Providers Care Automation And Controls Manager Name Role Phone Haven Lawrence MD Primary Care Provider [phone] Reason for Visit * Reason Comments Follow-up Med renewal Encounter Details Date Type Department Care Team (Late st Contact Info) Description 06/01/2020 8:30 EDT Office Visit [facility] Adult Primary [facility] - [place] [address] [place], [place] [address] Haven Lawrence MD [address] [place], [place] [phone] Annual physical exam (Primary Dx); Elevated glucose level; Screening mammogram for high-risk patient; Chronic migraine; Current smoker; Diabetes mellitus screening; Familial hyperlipidemia; Increased frequency of urination Social History Tobacco Use Types Packs/Day Years [...] on file Sexual Orientation Not on file COVID-19 Exposure Response Date Recorded In the last month, have you been in contact with someone who was confirmed or suspected to have Coronavirus / COVID-19? No / Unsure 05/12/2020 13:44 EDT documented as of this encounter Last Filed Vital Signs Vital Sign Reading Time Taken Comments Blood Pressure 114/80 06/01/2020 0824 EDT Pulse 76 06/01/2020 0824 EDT Temperature - - Respiratory Rate 20 06/01/2020 0824 EDT Oxygen Saturation - - Inhaled Oxygen Concentration - - Weight 74.4 kg (164 lb) 06/01/2020 08 EDT Height - - Body Mass Index 26.47 05/12/2020 1348 EDT documented in this encounter Functional Status [...] End Da te promethazine (PHENERGAN) 25 mg tabletIndications:Chronic migraine Take 1 Tab by mouth every 8 hours as needed for Nausea. 24 Tab 5 06/01/2020 06/06/2021 rizatriptan (MAXALT) 10 mg tabletIndications:Chronic migraine Take 1 Tab by mouth as needed for Migraine. May repeat in 2 hours if needed 12 Tab 11 06/01/2020 09/01/2020 topiramate (TOPAMAX) 50 mg tabletIndications:Chronic migraine Take 1 Tab by mouth 2 times daily. 90 Tab 1 06/01/2020 10/12/2020 documented in this encounter Progress Notes * Conchis Stephens, RN - 06/01/2020 0830 EDT Promethazine and Maxalt refilled on 05/27/20 Last seen 01/2019 * Katt Stock LPN - 06/01/2020 0830 EDT Here for f/u and med renewal , pt states migraines have increased * Haven Lawrence - 06/01/2020 0830 EDT [facility] Chief Complaint: Annual physical History of Present Illness: Lexis Turner is a 40 y.o.female with current chronic medical conditions including migraine headaches with aura, increased urinary frequency, hyperlipidemia. Lexis presents for annual physical. Her main complaint today is her persistent urinary frequency. She has had it since childhood. Has to get up at night at least 6 times to urinate. She was evaluated by urology a few years ago. Migraine headaches with aura since second grade. Her migraines are preceded by severe nausea. She was on Topamax without relief. States that using Rizatriptan helps. Promethazine relieves nausea. We tried propranolol but she did not feel any relief with the medication. Gets headaches a few times a month and in certain months a few times a week. She did get Botox injections for migraine headaches without relief. Was follow-up by Dr. Richar Tilley from neurology. Lexis continues to work at the [employer]. Review Of Systems: Review of Systems Constitutional: Negative for malaise/fatigue and weight loss. HENT: Negative for hearing loss. Eyes: Negative for blurred vision. Respiratory: Negative for cough and shortness of breath. Cardiovascular: Negative for chest pain and palpitations. Gastrointestinal: Negative for abdominal pain, blood in stool and heartburn. Genitourinary: Positive for frequency and urgency. Negative for dysuria. Musculoskeletal: Negative for joint pain and myalgias. Neurological: Negative for dizziness, sensory change, focal weakness and headaches. Psychiatric/Behavioral: Negative for depression. The patient has insomnia. The patient is not nervous/anxious. Past Medical History: Past Surgical History: Procedure Laterality Date ??? CYST REMOVAL 1998 Social History Socioeconomic History ??? Marital status: ??? 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 Smoking status: Current Every Day Smoker Packs/day: 0.25 Years: 20.00 Pack years: 5.00 Types: Cigarettes Start date: 1995 ??? Smokeless tobacco: Never Used Substance and Sexual Activity ??? Alcohol use: Yes Frequency: Monthly or less Drinks per session: 1 or 2 Binge frequency: Never ??? Drug use: Never Family History Problem Relation Age of Onset ??? Heart Surgery Father 60 x 2 ??? Breast Cancer Sister 31 ??? Cancer Maternal Grandmother ??? Cancer Paternal Grandmother ??? Heart Surgery Paternal Uncle ??? Fibroids Sister ??? Cancer Paternal Grandfather ??? Fibroids Paternal Cousin Problem List Diagnosis ??? Chronic migraine ??? Familial hypercholesterolemia ??? Urinary frequency Current Medications: promethazine (PHENERGAN) 25 mg tablet rizatriptan (MAXALT) 10 mg tablet Allergies: Allergen Reactions ??? Amoxicillin Hives Other reaction(s): hives ??? Bactrim [Sulfamethoprim Ds] Other (See Comments) Other reaction(s): vomiting ??? Cephalexin Hives Other reaction(s): hives, stomach upset, vomiting ??? Erythromycin Nausea And Vomiting Other reaction(s): n/v ??? Penicillin Hives Other reaction(s): hives ??? Sulfa (Sulfonamide Antibiotics) Hives ??? Demerol [Meperidine] GI upset Other reaction(s): GI upset ??? Oxycodone-Acetaminophen GI upset Other reaction(s): GI upset Objective: Physical Exam: BP 114/80 Pulse 76 Resp 20 Wt 74.4 kg (164 lb) BMI 26.47 kg/m?? General: Patient is no acute distress HEENT: Normocephalic/Atraumatic Neck: Supple without rigidity, full ROM, no lymphadenopathy or thyromegaly Respiratory: No respiratory distress, clear to auscultation without wheezes, rales, rhonchi or crackles Cardiac: Regular rate and rhythm, normal S1 & S2, no murmurs, Abdomen: Non-distended, positive bowel sounds, soft, non-tender without guarding, rigidity or rebound. No masses or hepatosplenomegaly. Dermatologic: No rashes or lesions Neurologic: Oriented x 4, muscle strength 4/4, normal gait, cranial nerves intact Psychiatric: Alert and oriented, answers questions appropriately Preventative medicine: Mammogram 05/25/2020: Negative Pap/HPV 05/12/2020: Negative Assessment & Plan by Problems: 1. Annual physical exam Annual exam without abnormalities. Patient is up-to-date on age-appropriate screenings and immunizations. - COMPLETE BLOOD COUNT AND DIFFERENTIAL; Future - COMPREHENSIVE METABOLIC PANEL (CMP); Future - LIPID PROFILE (INCLUDES CHOLESTEROL, TRIGLYCERIDES, HDL, LDL); Future 2. Elevated glucose Hemoglobin A1c of 5.2% in 2019. Will repeat levels. - HEMOGLOBIN A1C; Future 3. Screening mammogram for high-risk patient Sister was diagnosed with breast cancer at the age of 31. Recommend annual screenings. 4. Current smoker Discussed smoking cessation for approximately 10 minutes. Discussed risks associated with smoking including hypertension, heart disease, malignancy. Not ready at this time. 5. Chronic migraine Although Lexis tried Topamax in the past without significant improvement in migraine headaches she is agreeable to try again. She will call with any side effects. Patient did not do well with propranolol or her Botox injections. - topiramate (TOPAMAX) 50 mg tablet; Take 1 Tab by mouth 2 times daily. Dispense: 90 Tab; Refill: 1 - rizatriptan (MAXALT) 10 mg tablet; Take 1 Tab by mouth as needed for Migraine. May repeat in 2 hours if needed Dispense: 12 Tab; Refill: 11 - promethazine (PHENERGAN) 25 mg tablet; Take 1 Tab by mouth every 8 hours as needed for Nausea. Dispense: 24 Tab; Refill: 5 - COMPLETE BLOOD COUNT AND DIFFERENTIAL; Future - COMPREHENSIVE METABOLIC PANEL (CMP); Future 6. Increased frequency of urination Chronic. We will plan on checking urine electrolytes on the future urinalysis. - URINE ELECTROLYTES; Future - OSMOLALITY, URINE; Future - URINE CHEMICAL (DIP) & SEDIMENT (MICRO) WITHOUT REFLEX TO CULTURE; Future Follow-up in 1 year or sooner if needed. Haven Lawrence. , PhD documented in this encounter Plan of Treatment Upcoming Encounters Date Type Department Care Team (Late st Contact Info) Description 12/24/2023 15:30 EST Office Visit [facility] Adult Primary [facility] - [place] [address] [place], [place] [address] Pastora Brewster, PRINTING TABLE WORKER [address] [place] [address] documented as of this encounter Visit Diagnoses Diagnosis Annual physical exam- Primary Routine general medical examination at a health care facility Elevated glucose level Screening mammogram for high-risk patient Chronic migraine Chronic migraine without aura, without mention of intractable migraine without mention of status migrainosus Current smoker Tobacco use disorder Diabetes mellitus screening Screening for diabetes mellitus Familial hyperlipidemia Other and unspecified hyperlipidemia Increased frequency of urination Urinary frequency documented in this encounter Discontinued Medications Medication Sig Discontinue Reason Start Date End Da te promethazine (PHENERGAN) 25 mg tablet TAKE ONE TABLET BY MOUTH EVERY SIX HOURS NEEDED FOR NAUSEA Therapy completed 01/21/2020 06/01/2020 rizatriptan (MAXALT) 10 mg tablet Take 1 Tab by mouth as needed for Migraine. May repeat in 2 hours if needed Reorder 05/27/2020 06/01/2020 promethazine (PHENERGAN) 25 mg tablet Take 1 Tab by mouth every 8 hours as needed for Nausea. Reorder 05/27/2020 06/01/2020 documented as of this encounter Care Teams Automation And Controls Manager Relationship Specialty Start Date End Date Haven Lawrence MD PCP - General Internal Medicine - Primary Care 01/20/20 02/13/23 documented as of this encounter
--- OUTSIDE RECORDS SUMMARY | 2023-10-14 01:04 | XMS_ITS | Encounter Summary ---
Author Organization [facility] Address [address] [place] [address] Care Team Providers Care Salon Shampoo Assistant Name Role Phone Haven Lawrence MD Primary Care Provider [phone] Pastora Brewster NP Primary Care Provider [phone] Encounter Details Date Type Department Care Team (Late st Contact Info) Description 05/13/2020 Lab Requisition [facility] Pathology & Laboratory Medicine - [facility] [address], [place] [phone] Vicky Pinon MD [address] [place] [address], [address] [place] [address] Encounter for screening for malignant neoplasm of cervix Social History Tobacco Use Types Packs/Day Years Used Date Smoking Tobacco: Every Day Cigarettes 0.3 28.7 Started: 1995 Smokeless Tobacco: Never Comments:smoking 1 cigarette per day Alcohol Use Standard Drinks/Week Comments Yes 0 (1 standard drink = 0.6 oz pur e alcohol) AUDIT-C Answer Date Recorded Frequency of Alcohol Consumption Monthly or less 05/12/2020 Average Number of Drinks 1 or 2 021 Frequency of Binge Drinking Never 04/14 Interpersonal Safety Answer Date Record ed Physically [...] 13:44 EDT documented as of this encounter Functional Status [...] as of this encounter Miscellaneous Notes * Result Encounter Note - Vicky Pinon MD - 05/13/2020 0958 EDT Can you let pt know her pap and HPV were neg. She will need repeat co-testing in 5 years. Please set up telemed if she has any questions or concerns. Thanks! documented in this encounter Plan of Treatment Upcoming Encounters Date Type Department Care Team (Late st Contact Info) Description 12/24/2023 15:30 EST Office Visit [facility] Adult Primary Care - [address] [address] Pastora Brewster, LACY [address] [place] [address] documented as of this encounter Procedures Procedure Name Priority Date/Time Associated Diagnosis Comments PAP TEST Today 05/12/2020 9:50 EDT HPV DNA DETECTION WITH GENOTYPING, PCR Today 05/12/2020 9:50 EDT documented in this encounter Results * HUMAN PAPILLOMAVIRUS (HPV) DETECTION-HIGH RISK TYPES (05/12/2020 9:50 EDT) HPV other High Risk types, PCR Negative Negative 05/21/2020 14:59 EDT [facility] Comment:No E6 or E7 mRNA is detected from HPV types 16,18,31,33,35,39,45,51,52,56,58,59,66, and 68 by wrap turner mediated amplification. Papanicolaou smear specimen (specimen) CERVIX UTERI STRUCTURE / Unknown 05/12/2020 9:50 EDT 05/19/2020 15:35 EDT Vicky Pinon MD MICROBIOLOGY - GENER AL ORDERABLES [facility] [address] [place] [id number] * PAP TEST (05/12/2020 9:50 EDT) Specimens A. Cervix and/or Endocervix , ThinPrep Imaging System with Manual Evaluation 05/21/2020 14:59 EDT [facility] Specimen Adequacy Satisfactory for Evaluation - transformation zone component present 05/21/2020 14:59 EDT [facility] General Categorization Negative for intraepithelial lesion or malignancy 05/21/2020 14:59 EDT [facility] Attestation . 05/21/2020 14:59 EDT [facility] at 1459 Clinical History Clinical History, Signs, Symptoms, Chief Complaint, Pertaining to This Order: See below Last Menstral Period: 04/21/20 05/21/2020 14:59 EDT [facility] HPV The result for the Human Papillomavirus (HPV) Detection-High Risk Types is Negative. No E6 or E7 mRNA is detected from HPV types 16,18,31,33,35,39 ,45,51,52,56,58,5 9,66, and 68 by wrap turner mediated amplification.Alvina ting was performed on specimen [id number] and was resulted on 05/21/2020 1457 EDT by NAVEEN, LAB INSTRUMENT RESULTS IN 05/21/2020 14:59 EDT [facility] Performing Lab [facility] 05/21/2020 14:59 EDT [facility] Scanned Images 05/21/2020 14:59 EDT [facility] Papanicolaou smear specimen (specimen) CERVIX UTERI STRUCTURE / Unknown 05/12/2020 9:50 EDT 05/13/2020 14:59 EDT Vicky Pinon MD PATHOLOGY ORDERABLES [facility] [address] [place] [address] documented in this encounter Visit Diagnoses Diagnosis Encounter for screening for malignant neoplasm of cervix Screening for malignant neoplasm of the cervix documented in this encounter Care Teams Salon Shampoo Assistant Relationship Specialty Start Date End Date Haven Lawrence MD PCP - General Internal Medicine - Primary Care 01/20/20 02/13/23 Pastora Brewster NP [address] [place] [address] PCP - General Internal Medicine - Primary Care 02/14/23 documented as of this encounter
--- OUTSIDE RECORDS SUMMARY | 2023-10-14 01:04 | XMS_ITS | Encounter Summary ---
Author Organization [facility] Address [address] [place] [address] Care Team Providers Care Binder Lockstitch Name Role Phone Haven Lawrence MD Primary Care Provider [phone] Reason for Visit * Reason Onset Date Comments Influenza 05/30/2021 Encounter Details Date Type Department Care Team ([facility] st Contact Info) Description 05/30/2021 Telephone [facility] Adult Primary Care - [place] [address] [place], [place] [phone] Haven Lawrence MD [address] [place], [place] [phone] Influenza Social History Tobacco Use Types Packs/Day Years [...] Dispensed Refills Start Date End Da te guaiFENesin-codeine (GUAIFENESIN AC) 100-10 mg/5 mL liquid 2 teaspoons every 4 hours as needed for cough. 120 mL 05/30/2021 05/15/2022 documented in this encounter Miscellaneous Notes * Telephone Encounter - Margie Ross RN - 05/30/2021 1353 EDT Have notified Lexis. She will get started with this today. If symptoms don't improve in the nextfew days she will reach back out to us. * Telephone Encounter - Esa Laboy MD - 05/30/2021 1226 EDT Please contact the patient. I will give her a cough syrup with codeine. She can have 2 teaspoons every 4 hours as needed for cough. She should let us know if that is not effective. * Telephone Encounter - Jimenez Osorio RN - 05/30/2021 1058 EDT Dx of influenza at [facility]. Was given tessalon pearles, which are not helping. She can not get any sleep due to coughing. Abd painful due to constant cough. Knows to rest, drink plenty of fluids. DR Laboy, could Matthew get some robitussin ac to help her sleep? Please advise. * Telephone Encounter - Steph Ann - 05/30/2021 1003 EDT Pt LMOM [facility] and [facility] the [facility], they gave her something for cough but its not helping at all and wonders if something different can be called into [facility] in [place]. Please call Pt back with any questions [phone] documented in this encounter Plan of Treatment Upcoming Encounters Date Type Department Care Team (Late st Contact Info) Description 12/24/2023 15:30 EST Office Visit [facility] Adult Primary Care - [address] [phone] Pastora Brewster, AIR INTERCEPT CONTROLLER [address] [place] [id number] documented as of this encounter Visit Diagnoses Not on filedocumented in this encounter Care Teams Binder Lockstitch Relationship Specialty Start Date End Date Haven Lawrence MD PCP - General Internal Medicine - Primary Care 01/20/20 02/13/23 documented as of this encounter
--- OUTSIDE RECORDS SUMMARY | 2023-10-14 01:04 | XMS_ITS | Encounter Summary ---
Author Organization [facility] Address [address] [place] [address] Care Team Providers Care Car Knocker Name Role Phone GoldSally [place] SECTION BEAMER Primary Care Provider [phone] Encounter Details Date Type Department Care Team (Late Contact Info) Description 02/03/2019 Results Only [facility] [place] [address], [place] [id number] Haven Lawrence MD [address] [place] [address] Social History Tobacco Use Types Packs/Day Years Used Date Smoking Tobacco: Every Day Cigarettes 0.3 28.7 Started: 1995 Smokeless Tobacco: Never Alcohol Use Standard Drinks/Week Comments Yes 0 (1 standard drink = 0.6 oz pur e alcohol) AUDIT-C Answer Date Recorded Frequency of Alcohol Consumption Monthly or less 01/23/2019 Average Number of Drinks 1 or 2 019 Frequency of Binge Drinking Never 01/12 Sex and Gender Information Value Date Recorded Sex Assigned at Not on file Gender Identity Not on file Sexual Orientation Not on file documented as of this encounter Miscellaneous Notes * Result Encounter Note - Haven Lawrence - 02/03/2019 0842 EST Left message on patient's phone. Informed of normal blood work results. Asked to call with any questions. documented in this encounter Plan of Treatment Upcoming Encounters Date Type Department Care Team (Late st Contact Info) Description 12/24/2023 15:30 EST Office Visit [facility] [place] [address] [place] [address] Pastora Brewster, SECTION BEAMER [address] [place] [phone] documented as of this encounter Procedures Procedure Name Priority Date/Time Associated Diagnosis Comments COMPLETE BLOOD COUNT WITH DIFFERENTIAL (AUTO) Routine 02/03/2019 7:24 EST THYROID CASCADE Routine 02/03/2019 7:24 EST HEMOGLOBIN A1C Routine 02/03/2019 7:24 EST LIPID PROFILE (INCLUDES CHOLESTEROL, TRIGLYCERIDES, HDL, LDL) Routine 02/03/2019 7:24 EST COMPREHENSIVE METABOLIC PANEL (CMP) Routine 02/03/2019 7:24 EST documented in this encounter Results * HEMOGLOBIN A1C (02/03/2019 7:24 EST) Hemoglobin A1c 5.2 4.0 - 6.0 % 02/03/2019 12:46 EST [facility] Comment: > or =18 years: ??Increased risk for diabetes (prediabetes): 5.7-6.4% Diabetes: > or =6.5% Therapeutic goals for glycemic control (ADA) Adults: - Goal of therapy: <7.0% HbA1c - Action suggested: >8.0% HbA1c Pediatric patients: - Toddlers and preschoolers: <8.5% (but >7.5%) - School age (6-12 years): <8% - Adolescents and young adults (13-19 years): <7.5% Est Avg Glucose 103 mg/dL 9 12:46 EST [facility] 02/03/2019 7:24 EST 02/03/2019 7:44 EST [facility] - 02/03/2019 12:46 EST Does PT Have a Latex Allergy? NO Haven Lawrence MD CHEMISTRY & BLOOD GA S ORDERABLES Performing Organization Address City/[facility]/ZIP Co de Phone Number [facility] * THYROID CASCADE (02/03/2019 7:24 EST) TSH 1.73 0.46 - 4.68 uIU/mL 02/03/2019 9:32 [facility] 02/03/2019 7:24 EST 02/03/2019 7:45 EST Narrative [facility] - 02/03/2019 9:32 EST Does PT Have a Latex Allergy? NO Haven Lawrence MD CHEMISTRY & BLOOD GA S ORDERABLES Performing Organization Address [facility] Co de Phone Number [facility] * LIPID PROFILE (INCLUDES CHOLESTEROL, TRIGLYCERIDES, HDL, LDL) (02/03/2019 7:24 EST) Triglyceride 75 <150 mg/dL 02/03/2019 9:02 [facility] Comment: Adult: Normal: ?<150 mg/dl ? Borderline High: 150-199 mg/dl ? High: ?200-499 mg/dl ? Very High: >tk=999 Cholesterol 155 <200 mg/dL 02/03/2019 9:02 [facility] Comment: Acceptable: ??<200 Borderline: ??200-239 High: ?> or = 240 Chol/HDL Ratio 3.2 0 - 4.5 02/03/2019 9:02 [facility] Comment: DESIRABLE RATIO IS LESS THAN 4.1 PATIENTS ARE CONSIDERED AT RISK: WOMEN RATIO >5 MEN RATIO >6 FASTING? - [facility] Unknown 9 7:45 [facility] HDL 48 40 - 60 mg/dL 02/03/2019 9:02 [facility] Comment: ?? Reference Range Low: ? < 40 ??mg/dL Normal: ??40-60 mg/dL High: ?>= 60 mg/dL LDL CHOLESTEROL - [facility] 92 60 - 100 mg/dL 02/03/2019 9:02 [facility] Non HDL Cholesterol 107 mg/dl 02/03/2019 9:02 [facility] Comment: Desirable: ?Less than 130 Borderline High: ??130-159 High: ? 160-189 Very High: ?Greater than or equal to 190 02/03/2019 7:24 EST 02/03/2019 7:44 EST Narrative [facility] - 02/03/2019 9:02 EST Does PT Have a Latex Allergy? NO Haven Lawrence MD CHEMISTRY & BLOOD GA S ORDERABLES [facility] * (ABNORMAL) COMPREHENSIVE METABOLIC PANEL (CMP) (02/03/2019 7:24 EST) Albumin % 4.0 3.4 - 4.9 g/dL 02/03/2019 9:02 [facility] ALKALINE PHOSPHATASE - [facility] 40 38 - 126 U/L 02/03/2019 9:02 [facility] BILIRUBIN TOTAL 0.3 0.2 - 1.3 mg/dL 02/03/2019 9:02 [facility] BUN - [facility] 20 10 - 26 mg/dL 02/03/2019 9:02 [facility] CALCIUM - [facility] 8.7 8.5 - 10.5 mg/dL 02/03/2019 9:02 [facility] Chloride 104 96 - 110 mmol/L 02/03/2019 9:02 [facility] CO2 Total 27 22 - 32 mEq/L 02/03/2019 9:02 [facility] CREATININE 0.87 0.52 - 1.04 mg/dL 02/03/2019 9:02 [facility] eGFR >60 02/03/2019 9:02 [facility] Comment: Chronic renal impairment is defined as GFR <60 Multiply result by 1.210 for patients. eGFR calculated using the IDMS-traceable MDRD Study Equation. ??(effective 12/15/2013) Anion Gap 7 0 - 18 02/03/2019 9:02 [facility] GLUCOSE - [facility] 101(H) 70 - 100 mg/dL 02/03/2019 9:02 [facility] Potassium 4.1 3.5 - 5.0 mEq/L 02/03/2019 9:02 [facility] Sodium 138 136 - 145 mEq/L 02/03/2019 9:02 [facility] TOTAL PROTEIN - [facility] 6.7 6.2 - 8.2 gm/dL 02/03/2019 9:02 [facility] SGOT/AST - [facility] 20 14 - 36 U/L 02/03/2019 9:02 [facility] SGPT/ALT - [facility] 23 9 - 52 U/L 9 9:02 [facility] 02/03/2019 7:24 EST 02/03/2019 7:44 EST Narrative [facility] - 02/03/2019 9:02 EST Does PT Have a Latex Allergy? NO Haven Lawrence MD CHEMISTRY & BLOOD GA S ORDERABLES [facility] * COMPLETE BLOOD COUNT WITH DIFFERENTIAL (AUTO) (02/03/2019 7:24 EST) Gran # 3.9 2.2 - 8.85 10e3/uL 02/03/2019 8:42 [facility] BASO # - [facility] 0.06 0.01 - 0.11 10e/uL 02/03/2019 8:42 [facility] BASO % - [facility] 1 0 - 2 % 02/03/2019 8:42 [facility] EOS # - [facility] 0.19 0.03 - 0.61 10e3/ul 02/03/2019 8:42 [facility] EOS % - [facility] 3 0 - 5 % 02/03/2019 8:42 [facility] GRAN % - [facility] 63.3 40 - 80 % 02/03/2019 8:42 [facility] HEMATOCRIT - [facility] 37.7 34.9 - 44.4 % 02/03/2019 8:42 [facility] HEMOGLOBIN - [facility] 12.2 11.6 - 15.2 g/dl 02/03/2019 8:42 [facility] IG# - [facility] 0.02 0 - 0.7 10e3/uL 02/03/2019 8:42 [facility] IG% - [facility] 0.3 0 - 0.9 % 02/03/2019 8:42 [facility] LYMPH # - CV 1.6 1.09 - 3.3 10e3/ul 02/03/2019 8:42 [facility] LYMPH% - [facility] 25.6 20 - 40 % 02/03/2019 8:42 [facility] MEAN CORPUSCULAR HGB - [facility] 29.7 26.7 - 33.3 pg 02/03/2019 8:42 [facility] MEAN CORPUSCULAR HGB CONC - [facility] 32.4 32.1 - 35.9 g/dL 02/03/2019 8:42 [facility] MEAN CELL VOLUME - [facility] 91.7 81 - 98 fl 02/03/2019 8:42 [facility] MONO # - [facility] 0.4 0.1 - 0.8 10e3/uL 02/03/2019 8:42 [facility] MONO% - [facility] 6.7 0 - 12 % 02/03/2019 8:42 [facility] PLATELET COUNT 292 141 - 377 10e3/ul 02/03/2019 8:42 [facility] RED BLOOD COUNT - [facility] 4.11 3.86 - 5.04 10e3/ul 02/03/2019 8:42 [facility] RED CELL DISTRI WIDTH - [facility] 14.6 <14.7 % 02/03/2019 8:42 [facility] WHITE BLOOD COUNT - [facility] 6.1 4.0 - 12.4 10e3/ul 02/03/2019 8:42 [facility] 02/03/2019 7:24 EST 02/03/2019 7:45 EST Narrative [facility] - 02/03/2019 8:42 EST Does PT Have a Latex Allergy? NO Haven Lawrence MD HEMATOLOGY & PF4 ORD ERABLES [facility] documented in this encounter Visit Diagnoses Not on filedocumented in this encounter Care Teams Car Knocker Relationship Specialty Start Date End Date Sally Malcolm NP PCP - General 12/17/18 01/19/20 documented as of this encounter
--- OUTSIDE RECORDS SUMMARY | 2023-10-14 01:04 | XMS_ITS | Encounter Summary ---
Author Organization [facility] Address [address] [place] [address] Care Team Providers Care Tea Tree Farmer Name Role Phone Haven Lawrence MD Primary Care Provider [phone] Reason for Visit * Reason Onset Date Comments Results 05/26/2020 Encounter Details Date Type Department Care Team (Late st Contact Info) Description 05/26/2020 Telephone [facility] - [facility] [address], [place] [id number] Kelsey Jones RN Results Social History Tobacco Use Types Packs/Day [...] encounter Miscellaneous Notes * Telephone Encounter - Kelsey Jones RN - 05/26/2020 0844 EDT I attempted to reach MARY BETH Pires on VM stating I was trying to reach her with results. Letter drafted and sent. * Telephone Encounter - Kelsey Jones RN - 05/26/2020 0844 EDT ----- Message from Vicky Pinon MD sent at 05/24/2020 3:16 EDT ----- Can you let pt know her pap and HPV were neg. She will need repeat co-testing in 5 years. Please set up telemed if she has any questions or concerns. Thanks! documented in this encounter Plan of Treatment Upcoming Encounters Date Type Department Care Team (Late st Contact Info) Description 12/24/2023 15:30 EST Office Visit [facility] Adult [facility] - [address] [address] Pastora Brewster NP [address] [place] [phone] documented as of this encounter Visit Diagnoses Not on filedocumented in this encounter Care Teams Tea Tree Farmer Relationship Specialty Start Date End Date Haven Lawrence MD PCP - General Internal Medicine - Primary Care 01/20/20 02/13/23 documented as of this encounter
--- OUTSIDE RECORDS SUMMARY | 2023-10-14 01:04 | XMS_ITS | Encounter Summary ---
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 Patient did not tolerate propranolol, Topamax. Had Botox injections in the past without relief. Oral Maxalt did not work well. Nasal Imitrex too expensive. Reason for Visit * Reason Onset Date Comments Medication Management 08/27/2020 Encounter Details Date Type Department Care Team (Late st Contact Info) Description 08/27/[address] [facility] - [address] [address] Haven Urena MD [address] [place] [id number] Medication Management Social History Tobacco Use Types Packs/Day Years [...] Refills Start Date End Da te rizatriptan (MAXALT-ENTERTAINMENT LAWYER) 10 mg disintegrating tabletIndications:Persist ent migraine aura without cerebral infarction and with status migrainosus, not intractable Take 1 Tablet by mouth as needed for Migraine. 12 Tablet 3 09/01/2020 06/09/2021 SUMAtriptan (IMITREX) 5 mg/actuation nasal sprayIndications:Persiste nt migraine aura without cerebral infarction and with status migrainosus, not intractable Instill 1 [place] into right nostril as needed for Pain. 12 Each 3 09/01/2020 09/01/2020 documented in this encounter Miscellaneous Notes * Telephone Encounter - Melinda Haven - 09/01/2020 1701 EDT I left a message on patient's phone informing her that I resent Maxalt rapidly disintegrating tablets to try if that would work better. I also sent a referral to neurology. I would recommend MRI to make sure there is no pathology of the brain that could be contributing to the headaches. Patient wasasked to call with any questions. * Addendum Note - Haven Urena - 09/01/2020 1659 EDTAddended by: HAVEN URNEA on: 09/01/2020 16:59 Modules accepted: Orders * Telephone Encounter - Conchis Stephens RN - 09/01/2020 1550 EDT Spoke with patient and cost of sumatriptan nasal is too expensive and will nto be picked up. Patient would like a referral to [facility] with the hopes of being seen before her insurance ends on 10/12/[address] Urena * Telephone Encounter - Conchis Stephens RN - 09/01/2020 1541 EDT With insurance cost is $113.00 Left message for patient regarding flores * Telephone Encounter - Conchis Stephens RN - 09/01/2020 1537 EDT Left message for patient regarding sumatriptan nasal spray. Advised to contact us with update on effectiveness. * Telephone Encounter - Haven Urena - 09/01/2020 1404 EDT Recommend trial of sumatriptan nasal spray which might work better. Patient may use it in 1 or bothnostrils. Prescription sent. * Addendum Note - Haven Urena - 09/01/2020 1403 EDTAddended by: HAVEN URENA on: 09/01/2020 14:03 Modules accepted: Orders * Telephone Encounter - Conchis Stephens RN - 09/01/2020 1056 EDT 1. Patient no longer sees Dr. Mcqueen. Patient does not currently have neurologist and will see one if Dr. Urena advises and refers. Patient has insurance until 10/12/20 and would need appointment scheduled by 10/12. 2. Patient did retry the Topamax, however did not continue due to altered taste. Patient shared thealtered taste does resolve with time and would be willing to try again. 3. Patient reported vomiting after rizatriptan and phenergan. Patient asked if increasing the phenergan and rizatriptan may be recommended. Sending to Dr. Urena for guidance and referral. * Telephone Encounter - Conchis Stephens RN - 08/31/2020 1553 EDT Left message for patient to call back to discuss further. Dr. Mcqueen has left the [facility] practice. Is patient still seeing Dr. Mcqueen? * Telephone Encounter - Haven Urena - 08/31/2020 1347 EDT I would recommend a trial of Topamax. She is still seeing Dr. Warren from neurology for migraine headache? Maybe it would be good to reach out to her if patient is still under her care. * Telephone Encounter - Ingrid Shah RN - 08/30/2020 1007 EDT [facility] reports that the Rizatriptan doesn't seem to be helping much. She has not filled the topamax. She wonders if the Rizatriptan can be increased or can she try Imitrex injections? Advised I would put out to Dr. Urena for guidance. * Telephone Encounter - Deepthi Carpenter - 08/27/2020 1621 EDT Due to headaches, asking if can try imitrix injections, send script [facility]? Pt states she has tried pills but has a friend who says injections work for her so pt wants to try injections herself. Lexis's tele number [phone]. documented in this encounter Plan of Treatment Upcoming Encounters Date Type Department Care Team (Late st Contact Info) Description 12/24/2023 15:30 EST Office Visit 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 Abstraction 09/01/2020 09/01/2020 rizatriptan (MAXALT) 10 mg tabletIndications:Chroni c migraine Take 1 Tab by mouth as needed for Migraine. May repeat in 2 hours if needed 06/01/2020 09/01/2020 documented as of this encounter Care Teams Projection Technician Relationship Specialty Start Date End Date Haven Urena MD PCP - General Internal Medicine - Primary Care 01/20/20 02/13/23 documented as of this encounter
--- OUTSIDE RECORDS SUMMARY | 2023-10-14 01:04 | XMS_ITS | Encounter Summary ---
Author Organization [facility] Address [address] [place] [address] Care Team Providers Care Manager Completions Name Role Phone Sally Malcolm DESIGN PROJECT MANAGER Primary Care Provider [phone] Reason for Visit * Reason Comments New Patient Visit Encounter Details Date Type Department Care Team ([facility] st Contact Info) Description 01/23/2019 8:30 EST Office Visit [facility] Adult Primary Care - [place] [address], [place] [phone] Haven Lawrence MD [address], [place] [id number] Annual physical exam (Primary Dx); Fatigue, unspecified type; Elevated glucose; Screening mammogram for high-risk patient; Encounter for administration of vaccine; Current smoker; Chronic migraine Social History Tobacco Use Types Packs/Day Years [...] Sign Reading Time Taken Comments Blood Pressure 112/80 01/23/2019 0840 EST Pulse 80 01/23/2019 0840 EST Temperature - - Respiratory Rate - - Oxygen Saturation - - Inhaled Oxygen Concentration - - Weight 72.1 kg (159 lb) 01/23/2019 0840 EST Height 167.6 cm (5' 6) 01/23/2019 0840 EST Body Mass Index 25.66 01/23/2019 0840 EST documented in this encounter Ordered Prescriptions Prescription Sig Dispensed Refills Start Date End Da te propRANolol (INDERAL) 20 mg tabletIndications:migrain e prevention Take 0.5 Tabs by mouth 3 times daily for 28 days. 84 Tab 1 01/23/2019 02/20/2019 rizatriptan (MAXALT) 10 mg tabletIndications:migrain e Take 1 Tab by mouth as needed for up to 28 days for Migraine. Do not exceed 9 tablets per month. 9 Tab 2 01/23/2019 02/20/2019 promethazine (PHENERGAN) 25 mg tabletIndications:migrain e nausea Take 1 Tab by mouth every 6 hours as needed for up to 28 days for Nausea. 20 Tab 1 01/23/2019 06/05/2019 documented in this encounter Progress Notes * Haven Lawrence - 01/23/2019 0830 EST [facility] [place] Primary Care Chief Complaint: Full physical History of Present Illness: Lexis Turner is a 38 y.o.female with history of migraine headaches with aura, increased urinaryfrequency, hyperlipidemia. Who presents for annual physical. Her main complaint today is her persistent urinary frequency. She has had it since childhood. Has to get up at night at least 6 times to urinate. She was evaluated by urology a few years ago. She also has migraine headaches with aura since second grade. Her migraines are preceded by severe nausea. She was on Topamax without relief. States that using Rizatriptan helps. Promethazine relieves nausea. Gets headaches a few times a month. She did get Botox injections for migraine headaches without relief. Was follow-up by Dr. Richar Tilley from neurology. She saw Dr. [place], last visit in December 2017, and was recommended to take Detrol which she does not take. 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 Smoking status: Current [...] Paternal Grandmother ??? Heart Surgery Paternal Uncle Problem List Diagnosis ??? Chronic migraine ??? Familial hypercholesterolemia ??? Urinary frequency Current Medications: promethazine (PHENERGAN) 25 mg tablet propRANolol (INDERAL) 20 mg tablet rizatriptan (MAXALT) 10 mg tablet Allergies: Allergies Allergen Reactions ??? Amoxicillin Hives Other reaction(s): hives ??? Bactrim [Sulfamethoprim Ds] Other reaction(s): vomiting ??? Cephalexin Other reaction(s): hives, stomach upset, vomiting ??? Demerol [Meperidine] Other reaction(s): GI upset ??? Erythromycin Other reaction(s): n/v ??? Oxycodone-Acetaminophen Other reaction(s): GI upset ??? Penicillin Other reaction(s): hives ??? Sulfa (Sulfonamide Antibiotics) Other reaction(s): hives Objective: Physical Exam: BP 112/80 Pulse 80 Ht 167.6 cm (66) Wt 72.1 kg (159 lb) BMI 25.66 kg/m?? General: Patient is no acute distress [...] Psychiatric: Alert and oriented, answers questions appropriately Radiology: Mammogram in 2018: Negative Assessment & Plan by Problems: 1. Annual physical exam Annual exam without abnormalities. - COMPLETE BLOOD COUNT AND DIFFERENTIAL; Future - COMPREHENSIVE METABOLIC PANEL (CMP); Future - LIPID PROFILE (INCLUDES CHOLESTEROL, TRIGLYCERIDES, HDL, LDL); Future 2. Fatigue, unspecified type Unclear etiology. My be related to frequent awakenings at night due to increased urinary frequency.Recommended follow-up visit with urology however Lexis is not interested at this point. Discussed regular exercise, healthy diet and smoking cessation for improvement of fatigue. - THYROID CASCADE; Future 3. Elevated glucose - HEMOGLOBIN A1C; Future 4. Screening mammogram for high-risk patient Sister was diagnosed with breast cancer at the age of 31. Recommend annual screenings. - MA BREAST SCREENING; Future 5. Encounter for administration of vaccine - INFLUENZA VACCINE QUAD (FLULAVAL/FLUARIX/FLUZONE) PF 0.5 ML IM (6 MOS+) 6. Current smoker Discussed smoking cessation for approximately 10 minutes. Discussed risks associated with smoking including hypertension, heart disease, malignancy. Not ready at this time. 7. Chronic migraine We will try propranolol for prophylaxis. Discussed that propranolol may not show effects for at least 2 to 3 months. If no side effects, recommended continuation for few months to determine whether medication is beneficial. 30 minutes spent on discussion of preventative health measures including healthy diet, exercise, age-appropriate screening, immunizations and smoking cessation. Follow-up in 1 year or sooner if needed. Haven Lawrence. , PhD documented in this encounter Plan of Treatment Upcoming Encounters Date Type Department Care Team (Late st Contact Info) Description 12/24/2023 15:30 EST Office Visit [facility] Adult Primary [facility] - [place] [address], [place] [address] Pastora Brewster NP [address] [place] [address] documented as of this encounter Visit Diagnoses Diagnosis Annual physical exam- Primary Routine general medical examination at a health care facility Fatigue, unspecified type Elevated glucose Other abnormal glucose Screening mammogram for high-risk patient Encounter for administration of vaccine Current smoker Tobacco use disorder Chronic migraine Chronic migraine without aura, without mention of intractable migraine without mention of status migrainosus documented in this encounter Orders Immunization/Injection Count Last Ordered Date First Ordered Date INFLUENZA VACCINE QUAD (FLULAVAL/FLUARIX/FLUZONE) PF 0.5 ML IM (6 MOS+) 1 01/23/2019 documented in this encounter Care Teams Manager Completions Relationship Specialty Start Date End Date Sally Malcolm NP PCP - General 12/17/18 01/19/20 documented as of this encounter
--- OUTSIDE RECORDS SUMMARY | 2023-10-14 01:04 | XMS_ITS | Encounter Summary ---
Author Organization [facility] Address [address] [place] [address] Care Team Providers Care Fractionation Supervisor Name Role Phone Haven Lawrence MD Primary Care Provider [phone] Encounter Details Date Type Department Care Team (Latest Contact Info) Description 05/12/2020 Travel Social History Tobacco Use Types Packs/Day Years [...] Info) Description 12/24/2023 15:30 EST Office Visit [facility] Adult Primary Care - [address] [address] Pastora Brewster, SUPERVISOR FITTING [address] [place] [address] documented as of this encounter Visit Diagnoses Not on filedocumented in this encounter Care Teams Fractionation Supervisor Relationship Specialty Start Date End Date Haven Lawrence MD PCP - General Internal Medicine - Primary Care 01/20/20 02/13/23 documented as of this encounter
--- OUTSIDE RECORDS SUMMARY | 2023-10-14 01:04 | XMS_ITS | Encounter Summary ---
Author Organization [facility] Address [address] [place] [address] Care Team Providers Care Vineyardist Name Role Phone Haven Lawrence MD Primary Care Provider [phone] Encounter Details Date Type Department Care Team (Late st Contact Info) Description 09/02/2020 Orders Only [facility] [place] [facility] - [address] [phone] Conchis Stephens, RN Social History Tobacco Use Types Packs/Day Years [...] Dispensed Refills Start Date End Da te SUMAtriptan (IMITREX) 5 mg/actuation nasal spray Instill 1 [place] into right nostril once as needed for up to 1 dose (migraines). 12 Each 3 09/02/2020 09/02/2020 documented in this encounter Plan of Treatment Upcoming Encounters Date Type Department Care Team (Late st Contact Info) Description 12/24/2023 15:30 EST Office Visit [facility] Adult Primary Care - [address] [phone] Pastora Brewster, SUPERVISOR MAIL [employer]RIERS [address] [place] [phone] documented as of this encounter Visit Diagnoses Not on filedocumented in this encounter Discontinued Medications Medication Sig Discontinue Reason Start Date End Da te SUMAtriptan (IMITREX) 5 mg/actuation nasal spray Reorder 09/01/2020 09/02/2020 documented as of this encounter Care Teams Vineyardist Relationship Specialty Start Date End Date Haven Lawrence MD PCP - General Internal Medicine - Primary Care 01/20/20 02/13/23 documented as of this encounter
--- OUTSIDE RECORDS SUMMARY | 2023-10-14 01:04 | XMS_ITS | Encounter Summary ---
Author Organization [facility] Address [address] [place] [address] Care Team Providers Care Wireless Internet Installer Name Role Phone Haven Lawrence MD Primary Care Provider [phone] Reason for Visit * Reason Comments Leg Injury PT was moving furnat ure and in the process her left knee buckled out and she fell to the side. PT states similar happened 2x years ago when she broke her leg. Denies numbness and tingling Encounter Details Date Type Department Care Team (Late st Contact Info) Description 06/12/2021 22:00 EDT - 06/13/2021 0:55 EDT Emergency [facility] Emergency Department [address] [place] [address] Juanita Harrsi, [address] [place] [address] Effusion of right knee joint (Primary Dx) Discharge Disposition: Home or Self Care Social [...] Exposure Response Date Recorded In the last 10 days, have yo u been in contact with someone who was confirmed or suspected to have Coronavirus/COVID-19? No / Unsure 06/12/2021 21:59 EDT documented as of this encounter Last Filed Vital Signs Vital Sign Reading Time Taken Comments Blood Pressure 154/79 06/13/2021 0028 EDT Pulse 85 06/12/20212156 EDT Temperature 36.7 ??C (98 ??F) 06/12/20212156 EDT Respiratory Rate 16 06/13/20218 EDT Oxygen Saturation 98% 06/13/202127 EDT Inhaled Oxygen Concentration - - Weight 74.4 kg (164 lb) 06/12/20212156 EDT Height 167.6 cm (5' 6) 06/12/20212156 EDT Body Mass Index 26.47 06/12/20217 EDT documented in this encounter Functional Status [...] No 05/12/2020 documented as of this encounter Discharge Instructions * Discharge Instructions* Juanita Harris, - 06/13/2021 0:47 EDT You are seen in the emergency room today for your right knee pain. Your x-ray showed a small joint effusion but did not show any fractures. Please wear your knee brace and use crutches for the next few days if you are still having pain. Ice your knee for 20 minutes at a time several times a day to help with pain and swelling. You can take Tylenol or Motrin every 6 hours as needed for pain. Please follow-up with orthopedics if you are still having pain or your pain is not improving over the next 3 to 4 days. Please return to the emergency room if your pain is also worse, you have numbness or tingling in your leg, or any other new or concerning symptoms. * Attachments The following attachments cannot be sent through Care Everywhere. * Effusion: Joint: General Info (Luxembourger) documented in this encounter Medications at Time of Discharge Medication Sig Dispensed Refills Start Date End Date ibuprofen (MOTRIN) 200 mg tablet Take 4 Tablets by mouth every 6 hours as needed for Pain. guaiFENesin-codeine (GUAIFENESIN AC) 100-10 mg/5 mL liquid 2 teaspoons every 4 hours as needed for cough. 120 mL 05/30/2021 05/15/2022 promethazine (PHENERGAN) 25 mg tablet Take 1 Tablet by mouth every 8 hours as needed for Nausea. 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 female who presents to the ED for right lower extremity pain. Right knee x-ray shows a small joint effusion. On reevaluation patient feels improved after the Toradol. Patient will be discharged home. Patient encouraged to follow-up with Ortho who she continues to have pain. Patient encouraged to use her brace and crutches as needed. Patient was given return precautions which she expressed understanding. Final diagnoses: Effusion of right knee joint Disposition: Discharged Chief complaint: Right lower extremity pain HPI Lexis Turner is a 41 y.o. female who presents to the ED for right lower extremity pain. Patientreports she was attempting to move a heavy piece of furniture. Patient reports she was standing on the outside of the staircase trying to push the furniture. She went to get down and was further fromthe ground that she thought. Patient reports when she stepped down her right leg buckled and she fell to the side. Patient reports similar pain 2 years ago when she broke her leg. Patient denies numbness or tingling. Patient reports this happened earlier this morning. Patient has been staying off her leg and wearing the brace she had from her previous broken leg. Patient last took Motrin earlier this evening. History was provided by: Patient Patient's pertinent PMH, FH, SH were reviewed and edited as necessary. Review of Systems Constitutional: Negative for fever. HENT: Negative for sore throat. Eyes: Negative for redness. Respiratory: Negative for cough and shortness of breath. Cardiovascular: Negative for chest pain. Gastrointestinal: Negative for abdominal pain, nausea and vomiting. Genitourinary: Negative. Musculoskeletal: Positive for falls and joint pain. Negative for back pain and neck pain. Skin: Negative for rash. Neurological: Negative for headaches. Physical Exam BP (!) 154/79 (BP Cuff Location: Left arm, BP Patient Position: Sitting) Pulse 85 Temp 36.7 ??C(98 ??F) (Axillary) Resp 16 Ht 167.6 cm (66) Wt 74.4 kg (164 lb) SpO2 98% BMI 26.47 kg/m?? A medical screening exam was performed. Physical Exam Vitals and nursing note reviewed. Constitutional: General: She is not in acute distress. Appearance: She is well-developed and well-nourished. HENT: Right Ear: External ear normal. Left Ear: External ear normal. Nose: Nose normal. Mouth/Throat: Mouth: Mucous membranes are moist. Pharynx: Oropharynx is clear. Eyes: Conjunctiva/sclera: Conjunctivae normal. Pupils: Pupils are equal, round, and reactive to light. Cardiovascular: Rate and Rhythm: Normal rate and regular rhythm. Pulses: Intact distal pulses. Pulmonary: Effort: Pulmonary effort is normal. Comments: Normal work of breathing, able to speak in full sentences, no audible wheezing, no cough Abdominal: Palpations: Abdomen is soft. Tenderness: There is no abdominal tenderness. Musculoskeletal: Cervical back: Normal range of motion and neck supple. Comments: Decreased range of motion right knee secondary to pain. Tenderness to palpation of proximal tibia and fibula. Neurovascular intact. Skin: General: Skin is warm and dry. Capillary Refill: Capillary refill takes less than 2 seconds. Neurological: General: No focal deficit present. Mental Status: She is alert and oriented to person, place, and time. Psychiatric: Mood and Affect: Mood and affect normal. Imaging obtained was reviewed and independently interpreted. Procedures Procedures documented in this encounter Plan of Treatment Upcoming Encounters Date Type Department Care Team (Late st Contact Info) Description 12/24/2023 15:30 EST Office Visit [facility] Adult Primary Care - [place] [address] [place], [place] [phone] Pastora Brewster NP [address] [place] [phone] documented as of this encounter Procedures Procedure Name Priority Date/Time Associated Diagnosis Comments XR KNEE RIGHT 4 OR MORE VIEWS STAT 06/12/2021 23:27 EDT documented in this encounter Results * XR KNEE RIGHT 4 OR MORE VIEWS (06/12/2021 23:27 EDT) Anatomical Region Laterality Modality Lower Extremities Right Computed Radio graphy 06/12/2021 23:0 7 EDT Impressions 06/13/2021 0:38 EDT Small joint effusion. THIS DOCUMENT HAS BEEN ELECTRONICALLY SIGNED BY REMIGIO ALEXANDER MD FOR ANY QUESTIONS OR CONCERNS REGARDING THIS REPORT PLEASE CALL [facility] AT [phone] Narrative 06/13/2021 0:38 EDT PROCEDURE INFORMATION: Exam: XR Right Knee Exam date and time: 06/12/2021 11:07 PM Age: 41 years old Clinical indication: Pain; Knee; Right; Additional info: Pain just under knee after landing wrong jumping off a stair. H/o tibial fracture TECHNIQUE: Imaging protocol: XR Right knee. Views: 4 or more views. COMPARISON: CR [id number] 11/15/2018 1:16 PM FINDINGS: Bones/joints: Small joint effusion. Soft tissues: Normal. Procedure Note Remigio Alexander MD - 06/13/2021 PROCEDURE INFORMATION: Exam: XR Right Knee Exam date and time: 06/12/2021 11:07 PM Age: 41 years old Clinical indication: Pain; Knee; Right; Additional info: Pain just under knee after landing wrong jumping off a stair. H/o tibial fracture TECHNIQUE: Imaging protocol: XR Right knee. Views: 4 or more views. COMPARISON: CR [id number] 11/15/2018 1:16 PM FINDINGS: Bones/joints: Small joint effusion. Soft tissues: Normal. IMPRESSION Small joint effusion. THIS DOCUMENT HAS BEEN ELECTRONICALLY SIGNED BY REMIIGO ALEXANDER MD FOR ANY QUESTIONS OR CONCERNS REGARDING THIS REPORT PLEASE CALL [facility] [phone] Juanita Harris DO IM DIAGNOSTIC I MAGING ORDERABLES documented in this encounter Visit Diagnoses Diagnosis Effusion of right knee joint- Primary Effusion of lower leg joint documented in this encounter Administered Medications Inactive Administered Medications - up to 3 most recent administrations Medication Order MAR Action Action Date Dose Rate Site ketOROLAC (TORADOL) injection 30 mg 30 mg, intramuscular, NOW X1, 1 dose, On 06/12/21 at 2345, STAT Given 06/12/2021 23:25 EDT 30 mg Left De ltoid documented in this encounter Active and Recently Administered Medications Times are shown in EDT. Scheduled Medication Order 06/11/2021 06/12/2021 06/13/2021 ketOROLAC (TORADOL) injection 30 mg (COMPLETED) 30 mg, intramuscular, NOW X1, 1 dose, On 06/12/21 at 2345, STAT 2325 (Given - Provider: Josefina Lombardi RN) documented in this encounter Orders Medications Ordered That Raulito ht Not Have Been Administered Count Last Ordered Date First Ordered Date ketOROLAC (TORADOL) injection 30 mg 1 06/12 documented in this encounter Care Teams Wireless Internet Installer Relationship Specialty Start Date End Date Haven Lawrence MD PCP - General Internal Medicine - Primary Care 01/20/20 02/13/23 documented as of this encounter
--- OUTSIDE RECORDS SUMMARY | 2023-10-14 01:04 | XMS_ITS | Encounter Summary ---
Author Organization [facility] Address [address] [place] [address] Care Team Providers Care Hop Grower Name Role Phone Haven Lawrence MD Primary Care Provider [phone] Encounter Details Date Type Department Care Team (Late st Contact Info) Description 06/10/2020 Results Only [facility] - [facility] - Main [place] [address] [place] [address] Juanita Harris, DO [address] [place] [address] Social History Tobacco Use Types Packs/Day Years [...] Info) Description 12/24/2023 15:30 EST Office Visit [facility] Adult Primary Care - [place] [address] [place], [place] [phone] Pastora Brewster NP [address] [place] [phone] documented as of this encounter Procedures Procedure Name Priority Date/Time Associated Diagnosis Comments [facility] ALCOHOL - [facility] Routine 06/10/2020 3:10 EDT COMPLETE BLOOD COUNT WITH DIFFERENTIAL (AUTO) Routine 06/10/2020 3:10 EDT COMPREHENSIVE METABOLIC PANEL (CMP) Routine 06/10/2020 3:10 EDT documented in this encounter Results * ETHYL ALCOHOL - [facility] (06/10/2020 3:10 EDT) [facility] ALCOHOL [facility] <10.0 <10 mg/dL 06/10/2020 4:09 EDT [facility] 06/10/2020 3:10 EDT 06/10/2020 3:19 EDT Juanita Harris DO CHEMISTRY & BLOO D GAS ORDERABLES [facility] [address] [place] [address] * (ABNORMAL) COMPREHENSIVE METABOLIC PANEL (CMP) (06/10/2020 3:10 [facility] Signature Albumin % 4.6 3.4 - 4.9 g/dL 06/10/2020 4:09 [facility] ALKALINE PHOSPHATASE - [facility] 52 38 - 126 U/L 06/10/2020 4:09 [facility] BILIRUBIN TOTAL 0.9 0.2 - 1.3 mg/dL 06/10/2020 4:10 [facility] BUN - [facility] 16 10 - 26 mg/dL 06/10/2020 4:10 [facility] CALCIUM - [facility] 10.0 8.5 - 10.5 mg/dL 06/10/2020 4:09 [facility] Chloride 110 96 - 110 mmol/L 06/10/2020 4:09 [facility] CO2 Total 20(L) 22 - 32 mEq/L 06/10/2020 4:09 [facility] CREATININE 0.80 0.52 - 1.04 mg/dL 06/10/2020 4:09 [facility] eGFR >60 06/10/2020 4:09 [facility] Comment: Chronic renal impairment is defined as GFR <60 Multiply result by 1.210 for patients. eGFR calculated using the IDMS-traceable MDRD Study Equation. ??(effective 12/15/2013) Anion Gap 12 0 - 18 06/10/2020 4:09 [facility] GLUCOSE - [facility] 133(H) 70 - 100 mg/dL 06/10/2020 4:09 [facility] Potassium 4.2 3.5 - 5.0 mEq/L 06/10/2020 4:09 [facility] Sodium 142 136 - 145 mEq/L 06/10/2020 4:09 [facility] TOTAL PROTEIN - [facility] 7.5 6.2 - 8.2 gm/dL 06/10/2020 4:09 [facility] SGOT/AST - [facility] 26 14 - 36 U/L 06/10/2020 4:09 EDT [facility] SGPT/ALT - [facility] 18 0 - 35 U/L 4:09 T [facility] 06/10/2020 3:10 EDT 06/10/2020 3:19 EDT Juanita Harris DO CHEMISTRY & BLOO D GAS ORDERABLES [facility] [address] [place] [address] * (ABNORMAL) COMPLETE BLOOD COUNT WITH DIFFERENTIAL (AUTO) (06/10/2020 3:10 EDT) ABSOLUTE NEUTROPHIL COUN - [facility] 6.7 2.2 - 8.85 10e3/uL 06/10/2020 [facility] BASO # - [facility] 0.04 0.01 - 0.11 10e/uL 06/10/2020 3:26 [facility] BASO % - [facility] 1 0 - 2 % 06/10/2020 3:26 [facility] EOS # - [facility] 0(L) 0.03 - 0.61 10e3/ul 06/10/2020 3:26 [facility] EOS % - [facility] 0 0 - 5 % 06/10/2020 3:26 [facility] GRAN % - [facility] 81.1(H) 40 - 80 % 06/10/2020 3:26 T [facility] HEMATOCRIT - [facility] 43.0 34.9 - 44.4 % 06/10/2020 3:26 [facility] HEMOGLOBIN - [facility] 14.6 11.6 - 15.2 g/dl 06/10/2020 3:26 [facility] IG# - [facility] 0.03 0 - 0.7 10e3/uL 06/10/2020 3:26 [facility] IG% - [facility] 0.4 0 - 0.9 % 06/10/2020 3:26 [facility] LYMPH # - [facility] 1.1 1.09 - 3.3 10e3/ul 06/10/2020 3:26 [facility] LYMPH% - [facility] 13.7(L) 20 - 40 % 06/10/2020 3:26 [facility] MEAN CORPUSCULAR HGB - [facility] 30.7 26.7 - 33.3 pg 06/10/2020 3:26 [facility] MEAN CORPUSCULAR HGB CONC - [facility] 34.0 32.1 - 35.9 g/dL 06/10/2020 3:26 [facility] MEAN CELL VOLUME - [facility] 90.3 81 - 98 fl 06/10/2020 3:26 [facility] MONO # - [facility] 0.4 0.1 - 0.8 10e3/uL 06/10/2020 3:26 [facility] MONO% - [facility] 4.3 0 - 12 % 06/10/2020 3:26 [facility] PLATELET COUNT 306 141 - 377 10e3/ul 06/10/2020 3:26 [facility] RED BLOOD COUNT - [facility] 4.76 3.86 - 5.04 10e6/ul 06/10/2020 3:26 [facility] RED CELL DISTRI WIDTH - [facility] 13.4 <14.7 % 06/10/2020 3:26 [facility] WHITE BLOOD COUNT - [facility] 8.2 4.0 - 12.4 10e3/ul 06/10/2020 3:26 [facility] 06/10/2020 3:10 EDT 06/10/2020 3:19 EDT Juanita Harris DO HEMATOLOGY & PF4 ORDERABLES [facility] [address] [place] [id number] documented in this encounter Visit Diagnoses Not on filedocumented in this encounter Care Teams Hop Grower Relationship Specialty Start Date End Date Haven Lawrence MD PCP - General Internal Medicine - Primary Care 01/20/20 02/13/23 documented as of this encounter
--- OUTSIDE RECORDS SUMMARY | 2023-10-14 01:04 | XMS_ITS | Encounter Summary ---
Author Organization [facility] Address [address] [place] [address] Care Team Providers Care Front Desk Supervisor Name Role Phone Haven Lawrence MD Primary Care Provider [phone] Reason for Visit * Reason Onset Date Comments Medications Refill 06/06/2021 Encounter Details Date Type Department Care Team (Late st Contact Info) Description 06/06/2021 Refill [facility] Adult Primary Care - [place] [address] [place], [place] [address] Haven Lawrence MD [address] [place], [place] [id number] Medications Refill Social History Tobacco Use Types [...] for Nausea. 24 Tablet 5 06/09/2021 05/15/2022 documented in this encounter Miscellaneous Notes * Telephone Encounter - Margie Ross RN - 06/09/2021 1536 EDT Last visit 06/01/2020 with next scheduled 07/05/2021 refill approved per protocol. * Telephone Encounter - Fiorella Brooke - 06/07/2021 0834 EDT Patient calling in to just check to see how the progress was going for the refill. Patient states pharmacy gave her one of the Rizatriptan. She is on her menses and migraines are usually triggered. Thanks * Telephone Encounter - Bibiana Gay MA - 06/06/2021 0820 EDT Pt called on 06/06/2021 @ 0620 for refill on her Promethazine 25 mg tablets and also her rizatriptan 10 mg tablets. There was an electronic request made for her rizatriptan yesterday but she stated that she is all out and needs it BIANCA. documented in this encounter Plan of Treatment Upcoming Encounters Date Type Department Care Team (Late st Contact Info) Description 12/24/2023 15:30 EST Office Visit [facility] Adult Primary Care - [address] [address] Pastora Brewster, MEDICAL ADMINISTRATIVE SPECIALIST [address] [place] [address] documented as of this encounter Visit Diagnoses Not on filedocumented in this encounter Discontinued Medications Medication Sig Discontinue Reason Start Date End Da te promethazine (PHENERGAN) 25 mg tabletIndications:Chroni c migraine Take 1 Tab by mouth every 8 hours as needed for Nausea. Reorder 06/01/2020 06/06/2021 documented as of this encounter Care Teams Front Desk Supervisor Relationship Specialty Start Date End Date Haven Lawrence MD PCP - General Internal Medicine - Primary Care 01/20/20 02/13/23 documented as of this encounter
--- OUTSIDE RECORDS SUMMARY | 2023-10-14 01:04 | XMS_ITS | Encounter Summary ---
Author Organization [facility] Address [address] [place] [address] Care Team Providers Care Manager Mountain Name Role Phone aHven Lawrence MD Primary Care Provider [phone] Reason for Visit * Reason Comments Follow-up Encounter Details Date Type Department Care Team (Late st Contact Info) Description 06/28/2021 13:00 EDT Office Visit [facility] Orthopedics & Sport Medicine [address], [address] [place] [address] Jose Gómez PA-C [address] [facility] [address] [place] [address] Strain of right knee, initial encounter (Primary Dx) Social History Tobacco Use Types Packs/Day Years [...] suspected to have Coronavirus/COVID-19? No / Unsure 06/28/2021 12:59 EDT documented as of this encounter Last Filed Vital Signs Vital Sign Reading Time Taken Comments Blood Pressure - - Pulse - - Temperature 36.4 ??C (97.6 ??F) 06/28/2021 1301 EDT Respiratory Rate - - Oxygen Saturation - [...] as of this encounter Progress Notes * Mar Luque MA - 06/28/2021 1300 EDT Lexis presents today for a follow up of her right knee, joint effusion. LV was on 06/14 where she was provided with Tubigrip and her knee brace was set at 0- 70 degrees flexion. A PT referral was placed. Plan today is to repeat XR's * Jose Gómez PA-C - 06/28/2021 1300 EDT CHIEF COMPLAINT: Right knee pain Chief Complaint Patient presents with ??? Right Knee - Follow-up SUBJECTIVE: Lexis here for follow-up evaluation of her right knee pain from an injury that occurred 06/12/2021. Last visit on 06/14/2021 she had a sizable joint effusion. Since then she is continue with the compression sleeve and she did have a hinged knee brace that she uses when out of the house. She did have considerable swelling down to her foot and ankle but most of that has resolved. She hasless pain less swelling than she had previously. Still has occasional functional instability however the knee has not given out on her. She has been careful with her activities. Full weightbearing without assistive device. She was set up with physical therapy waiting to hear back from them for appointment date The past medical, family and social history have been reviewed in the patient chart. Past Medical History: Diagnosis Date ??? Depression ??? Hx of migraine headaches Social History Tobacco Use ??? Smoking status: Current Every Day Smoker Packs/day: 0.25 Years: 20.00 Pack years: 5.00 Types: Cigarettes Start date: 1995 ??? Smokeless tobacco: Never Used ??? Tobacco comment: smoking 1 cigarette per day Substance Use Topics ??? Alcohol use: Yes Past Surgical History: Procedure Laterality Date ??? CYST REMOVAL x 3 Allergies Allergen Reactions ??? Amoxicillin Hives Other reaction(s): hives ??? Bactrim [Sulfamethoprim Ds] Other (See Comments) Other reaction(s): vomiting ??? Cephalexin Hives Other reaction(s): hives, stomach upset, vomiting ??? Erythromycin Nausea And Vomiting Other reaction(s): n/v ??? Penicillin Hives Other reaction(s): hives ??? Sulfa (Sulfonamide Antibiotics) Hives ??? Trimethoprim ??? Demerol [Meperidine] GI upset Other reaction(s): GI upset ??? Oxycodone-Acetaminophen GI upset Other reaction(s): GI upset Medications Prior to Today's Visit Medication Sig ??? guaiFENesin-codeine (GUAIFENESIN AC) 100-10 mg/5 mL liquid 2 teaspoons every 4 hours as needed for cough. (Patient not taking: Reported on 06/14/2021) ??? ibuprofen (MOTRIN) 200 mg tablet Take 800 mg by mouth every 6 hours as needed for Pain. ??? promethazine (PHENERGAN) 25 mg tablet Take 1 Tablet by mouth every 8 hours as needed for Nausea. ??? rizatriptan (MAXALT-ATTENDANT HONOR BAR) 10 mg disintegrating tablet take ONE TABLET by MOUTH NEEDED for migraine ??? topiramate (TOPAMAX) 50 mg tablet TAKE ONE TABLET BY MOUTH TWICE DAILY (Patient not taking: Reported on 05/29/2021) No facility-administered medications prior to visit. OBJECTIVE: Temp 36.4 ??C (97.6 ??F) There is no height or weight on file to calculate BMI. On physical exam, the patient is found to be a cooperative female who appears to be alert and oriented x 3. She is well-developed, well-nourished and in no significant distress. Breathing is unlabored. Skin is warm and dry to inspection and palpation. Appears to be neurovascularly intact. Ambulateswith a steady gait. Exam of the right knee trace to 1+ joint effusion no erythema, fluctuance or signs of infection. She can comfortably flex to about 90 degrees and maintain full extension with intact straight leg raise. There is no laxity but reproducible pain with valgus stress causing discomfort over the medial tibial plateau region. No pain or laxity to varus stress or Lachemann's. Negative Jose's and bounce home. Positive ballottement however no crepitus with patellar grind. Lower leg and calf without swelling or erythema ASSESSMENT: Right medial collateral ligament sprain and joint effusion PLAN: Signs and symptoms most consistent with MCL sprain however there was no significant instability. No meniscal signs on exam either. I would like to continue with the plan of working with physical therapy to work on range of motion and quadricep/hamstring strengthening. She should use the hinged knee brace when outdoors in case trauma however when indoors at quiet times she may elect to use acompression sleeve. NSAIDs as needed. 4-week follow-up assess outcome of the therapy This note was prepared using voice recognition software and the EMR. There may be inadvertent errors and omissions. Eh Gómez PA-C 06/28/2021 documented in this encounter Plan of Treatment Upcoming Encounters Date Type Department Care Team (Late st Contact Info) Description 12/24/2023 15:30 EST Office Visit [facility] Adult Primary Care - [place] [address] [place] [address] Pastora Brewster NP [address] [place] [address] documented as of this encounter Visit Diagnoses Diagnosis Strain of right knee, initial encounter- Primary documented in this encounter Care Teams Manager Mountain Relationship Specialty Start Date End Date Haven Lawrence MD PCP - General Internal Medicine - Primary Care 01/20/20 02/13/23 documented as of this encounter
--- OUTSIDE RECORDS SUMMARY | 2023-10-14 01:04 | XMS_ITS | Encounter Summary ---
Author Organization [facility] Address [address] [place] [address] Care Team Providers Care Fuel Cell Test Engineer Name Role Phone Sally Malcolm PEDIATRIC ONCOLOGY NURSE Primary Care Provider [phone] Haven Lawrence MD Primary Care Provider [phone] Pastora Brewster PEDIATRIC ONCOLOGY NURSE Primary Care Provider [phone] Reason for Visit * Reason Comments Other Encounter Details Date Type Department Care Team (Late st Contact Info) Description 06/04/2019 Refill [facility] Adult Primary Care - [place] [address] [place], [place] [address] Haven Lawrence MD [address] [place], [place] [id number] Other Social History Tobacco Use Types Packs/Day Years [...] on file documented as of this encounter Ordered Prescriptions Prescription Sig Dispensed Refills Start Date End Da te promethazine (PHENERGAN) 25 mg tablet TAKE ONE TABLET BY MOUTH EVERY SIX HOURS NEEDED FOR NAUSEA 20 Tab 06/06/2019 01/19/2020 documented in this encounter Plan of Treatment Upcoming Encounters Date Type Department Care Team (Late st Contact Info) Description 12/24/2023 15:30 EST Office Visit [facility] Adult Primary Care - [place] [address] [place], [place] [address] Pastora Brewster PEDIATRIC ONCOLOGY NURSE [address] [place] [phone] documented as of this encounter Visit Diagnoses Not on filedocumented in this encounter Discontinued Medications Medication Sig Discontinue Reason Start Date End Da te promethazine (PHENERGAN) 25 mg tabletIndications:migrai ne nausea Take 1 Tab by mouth every 6 hours as needed for up to 28 days for Nausea. 01/23/2019 06/05/2019 documented as of this encounter Historical Medications * This list may reflect changes made after this encounter. Medication Sig Dispensed Refills Start Date End Date promethazine (PHENERGAN) 25 mg tablet 01/202005/24/2020 rizatriptan (MAXALT) 10 mg tablet 020 01/19/2020 added in this encounter Care Teams Fuel Cell Test Engineer Relationship Specialty Start Date End Date Sally Malcolm NP PCP - General 12/17/18 01/19/20 Haven Lawrence MD PCP - General Internal Medicine - Primary Care 01/20/20 02/13/23 Pastora Brewster NP [address] [place] [phone] PCP - General Internal Medicine - Primary Care 02/14/23 documented as of this encounter
--- OUTSIDE RECORDS SUMMARY | 2023-10-14 01:04 | XMS_ITS | Encounter Summary ---
Author Organization [facility] Address [address] [place] [address] Care Team Providers Care Document Reviewer Name Role Phone Sally Malcolm WELL TESTING OPERATOR Primary Care Provider [phone] Haven Lawrence MD Primary Care Provider [phone] Pastora Brewster WELL TESTING OPERATOR Primary Care Provider [phone] Encounter Details Date Type Department Care Team (Late st Contact Info) Description 02/06/[address] [facility] Radiology Results [address] [place], [place] [address] Haven Lawrence MD [address] [place] [address] Social History Tobacco Use Types Packs/Day Years [...] Description 12/24/2023 15:[address] [facility] Adult Primary Care - [address] [address] Pastora Brewster, WELL TESTING OPERATOR [address] [place] [phone] documented as of this encounter Procedures Procedure Name Priority Date/Time Associated Diagnosis Comments MA BREAST SCREENING ALIYA BILATERAL 02/06/2019 10:24 EST documented in this encounter Results * MA BREAST SCREENING ALIYA BILATERAL (02/06/2019 10:24 EST) Anatomical Region Laterality Modality Breast Bilateral Mammography 02/06/2019 10:2 4 EST Narrative 02/06/2019 10:24 EST ? EXAM: MAMMOGRAM/MAMMO BILATERAL SCREEN W ??EX. D/ (0739) ? CLINICAL INFORMATION: ? Z12.31 SCREENING ? INDICATION: Z12.31 SCREENING SCREENING, 11/2017 ? COMPARISON: Comparison has been made to previous images. ? TECHNIQUE: ??Full field digital whole breast 2D (C-view) and 3D CC and ? MLO views of both breasts were obtained. CAD technology was utilized. ? FINDINGS: ??The fibroglandular patterns of the breasts are normal. ? There has been no change when compared to previous mammograms and ? there is no mammographic evidence of cancer. There are scattered ? areas of fibroglandular density. ? FINAL ASSESSMENT BILATERAL BREAST: ??BI-RADS Category 1 - Negative. ? Routine mammographic follow-up is recommended. ? These results will be communicated to your patient via a lay letter ? from Radiology. ??If any additional imaging is needed we will contact ? your patient directly. ? REPORT SIGNED IN OTHER VENDOR SYSTEM 02/06/2019 ?Reported By: Soren Arce MD ? CC: ? Transcribed Date/Time: 02/06/2019 (1024) ? Regrinder: ? Printed Date/Time: 02/06/2019 (8530) ? PAGE 1 ? Signed Report ? Procedure Note Soren Arce MD - 02/06/2019 EXAM: MAMMOGRAM/MAMMO BILATERAL SCREEN W EX. D/ (0739) CLINICAL INFORMATION: Z12.31 SCREENING INDICATION: Z12.31 SCREENING SCREENING, 11/2017 COMPARISON: Comparison has been made to previous images. TECHNIQUE: Full field digital whole breast 2D (C-view) and 3D CCand MLO views of both breasts were obtained. CAD technology wasutilized. FINDINGS: The fibroglandular patterns of the breasts are normal. There has been no change when compared to previous mammograms and there is no mammographic evidence of cancer. There are scattered areas of fibroglandular density. FINAL ASSESSMENT BILATERAL BREAST: BI-RADS Category 1 - Negative. Routine mammographic follow-up is recommended. These results will be communicated to your patient via a lay letter from Radiology. If any additional imaging is needed we willcontact your patient directly. REPORT SIGNED IN OTHER VENDOR SYSTEM 02/06/2019 Reported By: Soren Arce MD CC: Transcribed Date/Time: 02/06/2019 (1024) Regrinder: Printed Date/Time: 02/06/2019 (5041) PAGE 1 Signed Report Haven Lawrence MD IMG MAMMOGRAPHY MELVIN APRYLCHRISTINE documented in this encounter Visit Diagnoses Not on filedocumented in this encounter Care Teams Document Reviewer Relationship Specialty Start Date End Date Sally Malcolm NP PCP - General 12/17/18 01/19/20 Haven Lawrence MD PCP - General Internal Medicine - Primary Care 01/20/20 02/13/23 Pastora Brewster NP [address] [place] [phone] PCP - General Internal Medicine - Primary Care 02/14/23 documented as of this encounter
--- OUTSIDE RECORDS SUMMARY | 2023-10-14 01:04 | XMS_ITS | Encounter Summary ---
Author Organization [facility] Address [address] [place] [address] Care Team Providers Care Box Printer Name Role Phone Haven Lawrence MD Primary Care Provider [phone] Reason for Visit * Reason Onset Date Comments Medications Refill 07/06/2022 Encounter Details Date Type Department Care Team (Late st Contact Info) Description 07/06/2022 Refill [facility] Adult Primary Care - [place] [address] [place], [place] [address] Haven Lawrence MD [address] [place], [place] [phone] Medications Refill Social History Tobacco Use Types [...] place to sleep or slept in a penitentiary (including now)? No 07/05/2021 Interpersonal Safety Answer [...] End Da te omeprazole (PRILOSEC) 20 mg capsuleIndications:Adiel roesophageal reflux disease without esophagitis Take 1 Capsule by mouth daily. 180 Capsule 3 07/07/2022 01/23/2023 documented in this encounter Miscellaneous Notes * Telephone Encounter - Kyle Gay MA - 07/06/2022 1333 EDT Medication(s) Requested: Omeprazole Preferred Pharmacy: [place] Are visits in compliance? Yes Last Refill Date: 05/02/2022 Recent Visits Date Type Provider Dept 05/15/22 Office Visit Haven Lawrence MD [facility] [place] 07/05/21 Office Visit Haven Lawrence MD [facility] [place] Showing recent visits within past 540 days with a meds authorizing provider and meeting all other requirements Future Appointments No visits were found meeting these conditions. Showing future appointments within next 150 days with a meds authorizing provider and meeting all other requirements KYLE GAY MA 07/06/2022 13:34 documented in this encounter Plan of Treatment Upcoming Encounters Date Type Department Care Team (Late st Contact Info) Description 12/24/2023 15:30 EST Office Visit [facility] Adult Primary Care - [place] [address] [place] [address] Pastora Brewster NP [address] [place] [phone] documented as of this encounter Visit Diagnoses Diagnosis Gastroesophageal reflux disease without esophagitis- Primary Esophageal reflux documented in this encounter Discontinued Medications Medication Sig Discontinue Reason Start Date End Da te omeprazole (PRILOSEC) 20 mg capsuleIndications:Gastr oesophageal reflux disease without esophagitis Take 1 Capsule by mouth daily. Reorder 05/15/2022 07/06/2022 documented as of this encounter Care Teams Box Printer Relationship Specialty Start Date End Date Haven Lawrence MD PCP - General Internal Medicine - Primary Care 01/20/20 02/13/23 documented as of this encounter
--- OUTSIDE RECORDS SUMMARY | 2023-10-14 01:04 | XMS_ITS | Encounter Summary ---
Author Organization [facility] Address [address] [place] [address] Care Team Providers Care Statistical Typist Name Role Phone Haven Lawrence MD Primary Care Provider [phone] Pastora Brewster NP Primary Care Provider [phone] Reason for Visit * Reason Comments Medications Refill Encounter Details Date Type Department Care Team (Late st Contact Info) Description 01/20/2022 Refill [facility] Adult Primary Care - [place] [address] [place], [place] [phone] Haven Lawrence MD [address] [place] [address] Medications Refill Social History Tobacco Use Types [...] slept in a half-way (including now)? No 07/05/2021 Interpersonal Safety Answer [...] Refills Start Date End Da te rizatriptan (MAXALT-INFECTIOUS DISEASE PHYSICIAN) 10 mg disintegrating tabletIndications:Persist ent migraine aura without cerebral infarction and with status migrainosus, not intractable DISSOLVE ONE TABLET IN MOUTH NEEDED for migraine 12 Tablet 3 01/24/2022 05/15/2022 documented in this encounter Miscellaneous Notes * Telephone Encounter - Amparo Moe RN - 01/23/2022 1107 EST Preferred pharmacy: [place] Medication requested: Maxalt Medication last filled: 07/05/21 for 12 w/ 3 refills Last OV: 07/05/21 Next OV: Not scheduled Are visits in compliance? Per last OV, not due back until 07/05/22. Ok to send? 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, not intractable Persistent migraine aura without cerebral infarction, without mention of intractable migraine with status migrainosus documented in this encounter Discontinued Medications Medication Sig Discontinue Reason Start Date End Da te rizatriptan (MAXALT-INFECTIOUS DISEASE PHYSICIAN) 10 mg disintegrating tabletIndications:Persist ent migraine aura without cerebral infarction and with status migrainosus, not intractable take ONE TABLET by MOUTH NEEDED for migraine 07/05/2021 01/23/2022 documented as of this encounter Care Teams Statistical Typist Relationship Specialty Start Date End Date Haven Lawrence MD PCP - General Internal Medicine - Primary Care 01/20/20 02/13/23 Pastora Brewster NP [address] [place] [phone] PCP - General Internal Medicine - Primary Care 02/14/23 documented as of this encounter
--- OUTSIDE RECORDS SUMMARY | 2023-10-14 01:04 | XMS_ITS | Encounter Summary ---
Author Organization [facility] Address [address] [place] [address] Care Team Providers Care Instructor Flying Name Role Phone Haven Lawrence MD Primary Care Provider [phone] Reason for Visit * Reason Comments Skin Lesion Mole on back of rig ht shoulder. 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 No 07/05/2021 Interpersonal Safety Answer [...] Sign Reading Time Taken Comments Blood Pressure 130/90 05/15/2022 1504 EDT Pulse 74 05/15/2022 1504 EDT Temperature - - Respiratory Rate - - Oxygen Saturation - - Inhaled Oxygen Concentration - - Weight 79.8 kg (176 lb) 05/15/2022 1504 EDT boot s & heavy clothing. Height - - Body Mass Index 31.98 07/05/2021 0933 EDT documented in this encounter Functional Status [...] Dispensed Refills Start Date End Da te hydrocortisone 2.5 % lotionIndications:Intri nsic eczema Apply twice daily on affected skin 60 mL 1 05/15/2022 01/23/2023 Colloidal Oatmeal (EUCERIN ECZEMA RELIEF) 1 % creamIndications:Intrin sic eczema Apply topically 2 times daily. 140 g 2 05/15/2022 01/23/2023 rizatriptan (MAXALT-HOUSE SHORER) 10 mg disintegrating tabletIndications:Persi stent migraine aura without cerebral infarction and with status migrainosus, not intractable DISSOLVE ONE TABLET IN MOUTH NEEDED for migraine 12 Tablet 3 05/15/2022 11/07/2022 topiramate (TOPAMAX) 50 mg tablet Take 1 Tablet by mouth at bedtime. 90 Tablet 3 05/15/2022 01/25/2023 promethazine (PHENERGAN) 25 mg tablet Take 1 Tablet by mouth every 8 hours as needed for Nausea. 24 Tablet 5 05/15/2022 01/23/2023 omeprazole (PRILOSEC) 20 mg capsuleIndications:Adiel roesophageal reflux disease without esophagitis Take 1 Capsule by mouth daily. 180 Capsule 3 05/15/2022 07/06/2022 documented in this encounter Progress Notes * Amber Bell, RN - 05/15/2022 1500 EDT Drug administered? Tdap Vaccine Injection site? Left deltoid Patient Tolerated? Yes Next injection due: Every 10 years Administered By: Dr. Haven Lawrence * Haven Lawrence - 05/15/2022 1500 EDT [facility] Primary Care Chief Complaint: Follow-up of chronic conditions History of Present Illness: Lexis Turner is a 41 y.o.female who present follow-up of chronic conditions. Lexis complains of chronic headaches. She was diagnosed with migraine headaches. Currently she uses rizatriptan on as-needed basis. She was on topiramate and propranolol but is no longer on these medications. She is contemplating going back on Topamax as a prophylactic medication. No new neurological deficits. Lexis has a benign looking brown nevi on the left upper chest. She would like to establish care with dermatology for skin cancer screening. GERD is well controlled with omeprazole. She continues to anxiety and pruritic eczema on her shins. I prescribed clotrimazole betamethasone which did not helps. Lexis would like to know if there is something else she can use. Continues to smoke. Review Of Systems: Negative except as in HPI Past Medical History: Past Medical History: Diagnosis Date ??? Depression ??? Hx of migraine headaches Past Surgical History: Procedure Laterality Date ??? CYST REMOVAL x 3 Family History Problem Relation Age of Onset ??? Heart Surgery Father 60 x 2 ??? Breast Cancer Sister 31 ??? Cancer Maternal Grandmother ??? Cancer Paternal Grandmother ??? Heart Surgery Paternal Uncle ??? Fibroids Sister ??? Cancer Paternal Grandfather ??? Fibroids Paternal Cousin Problem List Patient Active Problem List Diagnosis ??? Chronic migraine ??? Familial hypercholesterolemia ??? Urinary frequency ??? Current smoker Current Medications: Current Outpatient Medications: ??? clotrimazole-betamethasone (LOTRISONE) cream, Apply twice daily to affected skin, Disp: 15 g, Rfl: 1 ??? Colloidal Oatmeal (EUCERIN ECZEMA RELIEF) 1 % cream, Apply topically 2 times daily., Disp: 140 g, Rfl: 2 ??? hydrocortisone 2.5 % lotion, Apply twice daily on affected skin, Disp: 60 mL, Rfl: 1 ??? ibuprofen (MOTRIN) 200 mg tablet, Take 800 mg by mouth every 6 hours as needed for Pain. , Disp: , Rfl: ??? omeprazole (PRILOSEC) 20 mg capsule, Take 1 Capsule by mouth daily., Disp: 180 Capsule, Rfl: 3 ??? promethazine (PHENERGAN) 25 mg tablet, Take 1 Tablet by mouth every 8 hours as needed for Nausea., Disp: 24 Tablet, Rfl: 5 ??? rizatriptan (MAXALT-HOUSE SHORER) 10 mg disintegrating tablet, DISSOLVE ONE TABLET IN MOUTH NEEDED for migraine, Disp: 12 Tablet, Rfl: 3 ??? topiramate (TOPAMAX) 50 mg tablet, Take 1 Tablet by mouth at bedtime., Disp: 90 Tablet, Rfl: 3 Allergies: Allergies Allergen Reactions ??? Amoxicillin Hives [...] reaction(s): GI upset Objective: Physical Exam: BP 130/90 (BP Cuff Location: Left arm, BP Patient Position: Sitting, BP Cuff Sizes: Adult, regular) Pulse 74 Wt 79.8 kg (176 lb) Comment: boots & heavy clothing. BMI 31.98 kg/m?? General: Patient is no acute distress, Neurologic: Oriented x 4 Psychiatric: Answers questions appropriately Assessment & Plan by Problems: 1. Migraine with aura and without status migrainosus, not intractable Recommend reinitiation of Topamax for prophylactic treatment of migraine headaches. Continue rizatriptan as needed. 2. Gastroesophageal reflux disease without esophagitis Well-controlled on omeprazole - omeprazole (PRILOSEC) 20 mg capsule; Take 1 Capsule by mouth daily. Dispense: 180 Capsule; Refill: 3 3. 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 Intrinsic eczema Recommend trial of Eucerin cream and hydrocortisone. If symptoms do not improve eLxis is encouraged to call back. She was encouraged to call [facility]ology to set up a new patient visit. - Colloidal Oatmeal (EUCERIN ECZEMA RELIEF) 1 % cream; Apply topically 2 times daily. Dispense: 140g; Refill: 2 - hydrocortisone 2.5 % lotion; Apply twice daily on affected skin Dispense: 60 mL; Refill: 1 5. Need for Tdap vaccination Agreeable for vaccination. Last Tdap in 2012. - TDAP VACCINE =>7YO IM 6. Current smoker Follow-up in 1 year for annual physical or sooner if needed. Haven Lawrence. , PhD documented in this encounter Plan of Treatment Upcoming Encounters Date Type Department Care Team ([facility] st Contact Info) Description 12/24/2023 15:30 EST Office Visit [facility] Adult Primary Care - [address] [address] Pastora Brewster, SPRAY MACHINE LOADER [address] [place] [address] documented as of this encounter Visit Diagnoses Diagnosis Migraine with aura and without status migrainosus, not intractable- Primary Migraine with aura, without mention of intractable migraine without mention of status migrainosus Gastroesophageal reflux disease without esophagitis Esophageal reflux 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 Abstraction 06/09/2021 05/15/2022 omeprazole (PRILOSEC) 20 mg capsuleIndications:Gastro esophageal reflux disease without esophagitis Take 1 capsule by mouth daily. Reorder 07/05/2021 05/09/2022 propRANolol (INDERAL) 20 mg tabletIndications:Migrain e with aura and without status migrainosus, not intractable Take 1 Tablet by mouth 2 times daily. Abstraction 07/05/2021 05/15/2022 topiramate (TOPAMAX) 50 mg tabletIndications:Chronic migraine TAKE ONE TABLET BY MOUTH TWICE DAILY 10/12/2020 05/15/2022 guaiFENesin-codeine (GUAIFENESIN AC) 100-10 mg/5 mL liquid 2 teaspoons every 4 hours as needed for cough. Abstraction 05/30/2021 05/15/2022 rizatriptan (MAXALT-HOUSE SHORER) 10 mg disintegrating tabletIndications:Persist ent migraine aura without cerebral infarction and with status migrainosus, not intractable DISSOLVE ONE TABLET IN MOUTH NEEDED for migraine Reorder 01/24/2022 05/15/2022 documented as of this encounter Orders Immunization/Injection Count Last Ordered Date First Ordered Date TDAP VACCINE =>7YO IM 1 05/15/2022 documented in this encounter Care Teams Instructor Flying Relationship Specialty Start Date End Date Haven Lawrence MD PCP - General Internal Medicine - Primary Care 01/20/20 02/13/23 documented as of this encounter
--- OUTSIDE RECORDS SUMMARY | 2023-10-14 01:04 | XMS_ITS | Encounter Summary ---
Author Organization [facility] Address [address] [place] [address] Care Team Providers Care Director Of Advertising Sales Name Role Phone Sally Malcolm MENTAL HEALTH ASSISTANT Primary Care Provider [phone] Reason for Visit * Reason Onset Date Comments Medication Problem 01/23/2019 Encounter Details Date Type Department Care Team ([facility] st Contact Info) Description 01/23/2019 Telephone [facility] Adult Primary Care - [place] [address] [place] [address] Sally Malcolm NP [address] [place], [place] [phone] Medication Problem Social History Tobacco Use Types Packs/Day Years [...] encounter Miscellaneous Notes * Telephone Encounter - Fely Sidhu RN - 01/23/2019 1711 EST Per provider corrected propranolol prescription to read 20 mg 1 tab 3 times a day for 28 days Updated medication list * Telephone Encounter - Carisa Mathews - 01/23/2019 1419 EST Kaylin left a voicemail stating they would like clarification on the quantity. Please call. documented in this encounter Plan of Treatment Upcoming Encounters Date Type Department Care Team (Late st Contact Info) Description 12/24/2023 15:30 EST Office Visit [facility] Adult Primary Care - [place] [address] [place], [place] [address] Pastora Brewster NP [address] [place] [address] documented as of this encounter Visit Diagnoses Not on filedocumented in this encounter Care Teams Director Of Advertising Sales Relationship Specialty Start Date End Date Sally Malcolm NP PCP - General 12/17/18 01/19/20 documented as of this encounter
--- OUTSIDE RECORDS SUMMARY | 2023-10-14 01:04 | XMS_ITS | Encounter Summary ---
Author Organization [facility] Address [address] [place] [address] Care Team Providers Care Drywall Sander Name Role Phone Haven Lawrence MD Primary Care Provider [phone] Encounter Details Date Type Department Care Team (Late st Contact Info) Description 09/02/2020 Orders Only [facility] [place] Adult Primary Care - [address] [phone] Conchis Stephens, RN Social History Tobacco Use [...] Upcoming Encounters Date Type Department Care Team ([facility] st Contact Info) Description 12/24/2023 15:30 EST Office Visit [facility] Adult Primary Care - [address] [phone] Pastora Brewster NP [address] [place] [phone] documented as of this encounter Visit Diagnoses Not on filedocumented in this encounter Historical Medications * This list may reflect changes made after this encounter. Medication Sig Dispensed Refills Start Date End Date SUMAtriptan (IMITREX) 5 mg/actuation nasal spray 09/01/2020 09/02/2020 added in this encounter Care Teams Drywall Sander Relationship Specialty Start Date End Date Haven Lawrence MD PCP - General Internal Medicine - Primary Care 01/20/20 02/13/23 documented as of this encounter
--- OUTSIDE RECORDS SUMMARY | 2023-10-14 01:04 | XMS_ITS | Encounter Summary ---
Author Organization [facility] Address [address] [place] [address] Care Team Providers Care Light Rail Vehicle Operator Name Role Phone Haven Lawrence MD Primary Care Provider [phone] Encounter Details Date Type Department Care Team (Latest Contact Info) Description 06/28/2021 Travel Social History Tobacco Use Types Packs/Day [...] 12:59 EDT documented as of this encounter Functional [...] Info) Description 12/24/2023 15:30 EST Office Visit [facility] Adult Primary Care - [address] [address] Pastora Brewster NP [address] [place] [address] documented as of this encounter Visit Diagnoses Not on filedocumented in this encounter Care Teams Light Rail Vehicle Operator Relationship Specialty Start Date End Date Haven Lawrence MD PCP - General Internal Medicine - Primary Care 01/20/20 02/13/23 documented as of this encounter
--- OUTSIDE RECORDS SUMMARY | 2023-10-14 01:04 | XMS_ITS | Encounter Summary ---
Author Organization [facility] Address [address] [place] [address] Care Team Providers Care Serging Machine Operator Name Role Phone Haven Lawrence MD Primary Care Provider [phone] Pastora Brewster NP Primary Care Provider [phone] Reason for Visit * Reason Comments Other Encounter Details Date Type Department Care Team (Late st Contact Info) Description 10/11/2020 Refill [facility] Adult Primary Care - [place] [address] [place], [place] [address] Haven Lawrence MD [address] [place] [address] Other Social History Tobacco Use Types Packs/Day [...] Dispensed Refills Start Date End Da te topiramate (TOPAMAX) 50 mg tabletIndications:Chroni c migraine TAKE ONE TABLET BY MOUTH TWICE DAILY 180 Tablet 1 10/12/2020 05/15/2022 documented in this encounter Plan of Treatment Upcoming Encounters Date Type Department Care Team (Late st Contact Info) Description 12/24/2023 15:30 EST Office Visit [facility] Adult Primary Care - [address] [address] Pastora Brewster NP [address] [place] [phone] documented as of this encounter Visit Diagnoses Diagnosis Chronic migraine Chronic migraine without aura, without mention of intractable migraine without mention of status migrainosus documented in this encounter Discontinued Medications Medication Sig Discontinue Reason Start Date End Da te topiramate (TOPAMAX) 50 mg tabletIndications:Chronic migraine Take 1 Tab by mouth 2 times daily. 06/01/2020 10/12/2020 documented as of this encounter Care Teams Serging Machine Operator Relationship Specialty Start Date End Date Haven Lawrence MD PCP - General Internal Medicine - Primary Care 01/20/20 02/13/23 Pastora Brewster NP [address] [place] [phone] PCP - General Internal Medicine - Primary Care 02/14/23 documented as of this encounter
--- OUTSIDE RECORDS SUMMARY | 2023-10-14 01:04 | XMS_ITS | Encounter Summary ---
Author Organization [facility] Address [address] [place] [address] Care Team Providers Care Superintendent Maintenance Airports Name Role Phone Haven Lawrence MD Primary Care Provider [phone] Reason for Visit * Reason Onset Date Comments Medications Refill 05/24/2020 Encounter Details Date Type Department Care Team (Late st Contact Info) Description 05/24/2020 Refill [facility] Adult Primary Care - [place] [address] [place], [place] [address] Haven Lawrence MD [address] [place], [place] [phone] Medications Refill Social History Tobacco Use Types [...] 2 021 Frequency of Binge Drinking Never /02/2020 Interpersonal Safety Answer Date Record ed Physically [...] hours as needed for Nausea. 24 Tab 05/27/2020 06/01/2020 rizatriptan (MAXALT) 10 mg tablet Take 1 Tab by mouth as needed for Migraine. May repeat in 2 hours if needed 12 Tab 05/27/2020 06/01/2020 documented in this encounter Miscellaneous Notes * Telephone Encounter - Lexis Becerril - 05/27/2020 1437 EDT Pt came in and made an appt for 06/01 at 8:30am. She needs refills for Rizatriptan and Promethazine both sent to [facility] in [place], she is all out. * Telephone Encounter - Conchis Stephens RN - 05/27/2020 0856 EDT Patient will stop by after school today and make appointment. Please send to Dr. Lawrence after she makes appointment to refill medications. * Telephone Encounter - Conchis Stephens RN - 05/25/2020 1010 EDT Spoke with patient and she will call back to schedule an appointment * Telephone Encounter - Conchis Stephens RN - 05/25/2020 1007 EDT Patient needs appointment. Has not been seen by Dr. Lawrence since 2019 * Telephone Encounter - Petra Mcallister MA - 05/24/2020 1406 EDT Needs refills on Rizatriptan 10mg tabs and Promethazine 25mg tabs. documented in this encounter Plan of Treatment Upcoming Encounters Date Type Department Care Team (Late st Contact Info) Description 12/24/2023 15:30 EST Office Visit [facility] Adult Primary Care - [address] [phone] Pastora Brewster NP [address] [place] [phone] documented as of this encounter Visit Diagnoses Not on filedocumented in this encounter Discontinued Medications Medication Sig Discontinue Reason Start Date End Da te rizatriptan (MAXALT) 10 mg tablet Take 10 mg by mouth as needed for Migraine. May repeat in 2 hours if needed Reorder 05/24/2020 promethazine (PHENERGAN) 25 mg tablet Reorder 04/24/2019 05/24/2020 documented as of this encounter Care Teams Superintendent Maintenance Airports Relationship Specialty Start Date End Date Haven Lawrence MD PCP - General Internal Medicine - Primary Care 01/20/20 02/13/23 documented as of this encounter
--- OUTSIDE RECORDS SUMMARY | 2023-10-14 01:04 | XMS_ITS | Encounter Summary ---
Author Organization [facility] Address [address] [place] [address] Care Team Providers Care Wheel Lacer And Truer Name Role Phone Haven Lawrence MD Primary Care Provider [phone] Reason for Visit * Reason Comments Other Encounter Details Date Type Department Care Team ([facility] st Contact Info) Description 06/05/2021 Refill [facility] [place] - [address] [phone] Haven Lawrence MD [address] [place], [place] [phone] Other Social History Tobacco Use Types Packs/Day [...] of Assess ment Because of a physical, alfred khan, or emotional condition, does this person have [...] Refills Start Date End Da te rizatriptan (MAXALT-TREE CLIMBER) 10 mg disintegrating tabletIndications:Persist ent migraine aura without cerebral infarction and with status migrainosus, not intractable take ONE TABLET by MOUTH NEEDED for migraine 12 Tablet 06/09/2021 07/05/2021 documented in this encounter Miscellaneous Notes * Telephone Encounter - Cecy Alcala - 06/09/2021 1531 EDT Scheduled for a physical on 07/05/21 * Telephone Encounter - Margie Ross RN - 06/09/2021 1432 EDT Last visit 06/01/2020 overdue for follow up. Please call to schedule for an annual exam. 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 09/01/2020 06/09/2021 documented as of this encounter Care Teams Wheel Lacer And Truer Relationship Specialty Start Date End Date Haven Lawrence MD PCP - General Internal Medicine - Primary Care 01/20/20 02/13/23 documented as of this encounter
--- OUTSIDE RECORDS SUMMARY | 2023-10-14 01:04 | XMS_ITS | Encounter Summary ---
Author Organization [facility] Address [address] [place] [address] Care Team Providers Care Research Scientist Name Role Phone Sally Malcolm NP Primary Care Provider [phone] Haven Lawrence MD Primary Care Provider [phone] Reason for Visit * Reason Onset Date Comments Medications Refill 01/19/2020 Encounter Details Date Type Department Care Team (Late st Contact Info) Description 01/19/[address] [facility] - [place] [address] [place] [address] Sally Malcolm NP [address] [place], [place] [id number] Medications Refill Social History Tobacco Use Types [...] Refills Start Date End Da te rizatriptan (MAXALT) 10 mg tablet Take 1 Tab by mouth once as needed for up to 1 dose for Migraine. 9 Tab 01/21/2020 01/21/2020 promethazine (PHENERGAN) 25 mg tablet TAKE ONE TABLET BY MOUTH EVERY SIX HOURS NEEDED FOR NAUSEA 20 Tab 01/21/2020 06/01/2020 documented in this encounter Miscellaneous Notes * Telephone Encounter - Madeleine Ogden, ADAM - 01/20/2020 1958 EST Last OV: 01/23/2019 No future appt Requesting Refills * Telephone Encounter - Deepthi Carpenter - 01/20/2020 0944 EST Pt has been has been having migraines, asking for refills on meds (see below message). Pharm is david chowdhury. Her contact number is [phone]. * Telephone Encounter - Petra Mcallister - 01/19/2020 1120 EST Needs refills on Promethazine 25mg tabs and Rizatriptan 10mg tabs. documented in this encounter Plan of Treatment Upcoming Encounters Date Type Department Care Team (Late st Contact Info) Description 12/24/2023 15:30 EST Office Visit [facility] - [place] [address] [place] [address] Pastora Brewster NP [address] [place] [phone] documented as of this encounter Visit Diagnoses Not on filedocumented in this encounter Discontinued Medications Medication Sig Discontinue Reason Start Date End Da te promethazine (PHENERGAN) 25 mg tablet TAKE ONE TABLET BY MOUTH EVERY SIX HOURS NEEDED FOR NAUSEA Reorder 06/06/2019 01/19/2020 rizatriptan (MAXALT) 10 mg tablet Reorder 04/24/2019 01/19/2020 documented as of this encounter Historical Medications * This list may reflect changes made after this encounter. Medication Sig Dispensed Refills Start Date End Date clindamycin (CLEOCIN) 150 mg capsule 10/1405/12/2020 added in this encounter Care Teams Research Scientist Relationship Specialty Start Date End Date Sally Malcolm NP PCP - General 12/17/18 01/19/20 Haven Lawrence MD PCP - General Internal Medicine - Primary Care 01/20/20 02/13/23 documented as of this encounter
--- OUTSIDE RECORDS SUMMARY | 2023-10-14 01:04 | XMS_ITS | Encounter Summary ---
Author Organization [facility] Address [address] [place] [address] Care Team Providers Care Dryer Operator Name Role Phone Haven Lawrence MD Primary Care Provider [phone] Reason for Visit * Reason Onset Date Comments Breast Pain 04/09/2020 Encounter Details Date Type Department Care Team (Late st Contact Info) Description 04/09/2020 Telephone [facility] [address] [place], [place] [phone] Isa Venegas MD [address], [address] [place] [address] Breast Pain Social History Tobacco Use Types Packs/Day Years [...] encounter Miscellaneous Notes * Telephone Encounter - Merari Strickland RN - 04/14/2020 1637 EST Pt was given an earlier AE with RL on 05/12/20 and stated breast and armpit pain is better. * Telephone Encounter - Merari Strickland RN - 04/14/2020 1616 EST Lm for pt to call back. To see if she would still like an appt for breast check. Pt has AE scheduled with RL on 05/26/20. * Telephone Encounter - Merari Coughlin - 04/09/2020 1307 EST Left breast and armpit sore, sister had breast ca. Should she come in before annual? documented in this encounter Plan of Treatment Upcoming Encounters Date Type Department Care Team (Late st Contact Info) Description 12/24/2023 15:[address] [facility] Adult Primary Care - [address] [address] Pastora Brewster NP [address] [place] [phone] documented as of this encounter Visit Diagnoses Not on filedocumented in this encounter Care Teams Dryer Operator Relationship Specialty Start Date End Date Haven Lawrence MD PCP - General Internal Medicine - Primary Care 01/20/20 02/13/23 documented as of this encounter
--- OUTSIDE RECORDS SUMMARY | 2023-10-14 01:04 | XMS_ITS | Encounter Summary ---
Author Organization [facility] Address [address] [place] [address] Care Team Providers Care Hair Dryer Name Role Phone Haven Lawrence MD Primary Care Provider [phone] Pastora Brewster NP Primary Care Provider [phone] Encounter Details Date Type Department Care Team (Late st Contact Info) Description 05/25/2020 Results Only Imaging [facility] Radiology Results [address] [place], [place] [phone] Vicky Pinon MD [address] [facility], [address] [place] [address] Social History Tobacco Use Types Packs/Day Years [...] [facility] - [place] [address] [place], [place] [phone] Pastora Brewster, PIGMENT PUSHER [address] [place] [phone] documented as of this encounter Procedures Procedure Name Priority Date/Time Associated Diagnosis Comments US BREAST LIMITED UNILATERAL 05/25/2020 11:33 EDT MA BREAST DIAGNOSTIC ALIYA BILATERAL 05/25/2020 11:33 EDT documented in this encounter Results * US BREAST LIMITED UNILATERAL (05/25/2020 11:33 EDT) Anatomical Region Laterality Modality Breast Other 05/25/2020 11:3 3 EDT Narrative 05/25/2020 11:33 EDT ? EXAM: ULTRASOUND/UNILATERAL BREAST LIMITE EX. D/ (0944) ? CLINICAL INFORMATION: ? LEFT OUTER BREAST AND LEFT AXILLARY ? TENDERNESS ? DIAGNOSTIC LEFT BREAST MAMMOGRAM ? DIAGNOSTIC LEFT BREAST ULTRASOUND ? SCREENING RIGHT BREAST MAMMOGRAM ? UNILATERAL BREAST LIMITED, MAMMO BILATERAL DX W ALIYA ? SIGNS AND SYMPTOMS/COMMENTS: ??LEFT OUTER BREAST AND LEFT AXILLARY , ? TENDERNESS ? COMPARISONS: Comparison has been made to prior examinations currently ? available. ? FINDINGS: ? RIGHT BREAST MAMMOGRAPHY: Full field digital whole breast 2D (C-view) ? and 3D CC and MLO views of the right breast were obtained. CAD ? technology was utilized. ? There are scattered areas of fibroglandular density. There is no ? suspicious mass, architectural distortion or suspicious ? microcalcification. ? DIAGNOSTIC LEFT BREAST MAMMOGRAPHY: Full field digital whole breast ? 2D (C-view) and 3D CC, XCCL and MLO views of the left breast were ? obtained. CAD technology was utilized. ? There are scattered areas of fibroglandular density. Square markers ? were placed over the outer left breast to denote the area of pain. ? There is no suspicious mass, architectural distortion or suspicious ? microcalcification ? DIAGNOSTIC LEFT BREAST ULTRASOUND: The outer left breast was scanned ? from the 12 o'clock position to the 6 clock, covering the area of ? pain as directed by the patient. ? No suspicious sonographic abnormality was detected. ? RIGHT BREAST IMPRESSION: Negative. ? LEFT BREAST IMPRESSION: Negative. No imaging findings to explain the ? patient's left breast pain. ? FINAL ASSESSMENT: ??SCREENING RIGHT BREAST MAMMOGRAM - BI-RADS ? Category 1 - Negative. ? FINAL ASSESSMENT: ??DIAGNOSTIC LEFT BREAST MAMMOGRAM/ULTRASOUND - ? BI-RADS Category 1 - Negative. ? RECOMMENDATION: Recommend clinical follow-up for left breast pain. ? PAGE 1 ? Signed Report ? (CONTINUED) ? Recommend continued annual bilateral screening mammography which is ? next due in May 2021. ? The patient was told the results and recommendations following the ? study by the repair weaver ? These results will be communicated to your patient via a lay letter ? from Radiology. If any additional imaging is needed we will contact ? your patient directly. ? . ? REPORT SIGNED IN OTHER VENDOR SYSTEM 05/25/2020 ?Reported By: Aquiles Brooke MD ? CC: ? Transcribed Date/Time: 05/25/2020 (1133) ? Photo Lab Technician: ? Printed Date/Time: 05/25/2020 (1451) ? PAGE 2 ? Signed Report ? Procedure Note Aquiles Brooke MD - 05/25/2020 EXAM: ULTRASOUND/UNILATERAL BREAST LIMITE EX. D/ (0944) CLINICAL INFORMATION: LEFT OUTER BREAST AND LEFT AXILLARY TENDERNESS DIAGNOSTIC LEFT BREAST MAMMOGRAM DIAGNOSTIC LEFT BREAST ULTRASOUND SCREENING RIGHT BREAST MAMMOGRAM UNILATERAL BREAST LIMITED, MAMMO BILATERAL DX W ALIYA SIGNS AND SYMPTOMS/COMMENTS: LEFT OUTER BREAST AND LEFT AXILLARY , TENDERNESS COMPARISONS: Comparison has been made to prior examinationscurrently available. FINDINGS: RIGHT BREAST MAMMOGRAPHY: Full field digital whole breast 2D(C-view) and 3D CC and MLO views of the right breast were obtained. CAD technology was utilized. There are scattered areas of fibroglandular density. There is no suspicious mass, architectural distortion or suspicious microcalcification. DIAGNOSTIC LEFT BREAST MAMMOGRAPHY: Full field digital whole breast 2D (C-view) and 3D CC, XCCL and MLO views of the left breast were obtained. CAD technology was utilized. There are scattered areas of fibroglandular density. Square markers were placed over the outer left breast to denote the area of pain. There is no suspicious mass, architectural distortion or suspicious microcalcification DIAGNOSTIC LEFT BREAST ULTRASOUND: The outer left breast wasscanned from the 12 o'clock position to the 6 clock, covering the area of pain as directed by the patient. No suspicious sonographic abnormality was detected. RIGHT BREAST IMPRESSION: Negative. LEFT BREAST IMPRESSION: Negative. No imaging findings to explainthe patient's left breast pain. FINAL ASSESSMENT: SCREENING RIGHT BREAST MAMMOGRAM - BI-RADS Category 1 - Negative. FINAL ASSESSMENT: DIAGNOSTIC LEFT BREAST MAMMOGRAM/ULTRASOUND - BI-RADS Category 1 - Negative. RECOMMENDATION: Recommend clinical follow-up for left breast pain. PAGE 1 Signed Report (CONTINUED) Recommend continued annual bilateral screening mammography which is next due in May 2021. The patient was told the results and recommendations following the study by the repair weaver These results will be communicated to your patient via a lay letter from Radiology. If any additional imaging is needed we will contact your patient directly. . REPORT SIGNED IN OTHER VENDOR SYSTEM 05/25/2020 Reported By: Aquiles Brooke MD CC: Transcribed Date/Time: 05/25/2020 (1503) Photo Lab Technician: Printed Date/Time: 05/25/2020 (4940) PAGE 2 Signed Report Vicky Pinon MD [facility] * MA BREAST DIAGNOSTIC ALIYA BILATERAL (05/25/2020 11:33 EDT) Anatomical Region Laterality Modality Breast Bilateral Mammography 05/25/2020 11:3 3 EDT Narrative 05/25/2020 11:33 EDT ? EXAM: MAMMOGRAM/MAMMO BILATERAL DX W ALIYA EX. D/ (1042) ? CLINICAL INFORMATION: ? LEFT OUTER BREAST AND LEFT AXILLARY ? TENDERNESS ? LEFT DIAGNOSTIC, RIGHT SCREENING ? DIAGNOSTIC LEFT BREAST MAMMOGRAM ? DIAGNOSTIC LEFT BREAST ULTRASOUND ? SCREENING RIGHT BREAST MAMMOGRAM ? UNILATERAL BREAST LIMITED, MAMMO BILATERAL DX W ALIYA ? SIGNS AND SYMPTOMS/COMMENTS: ??LEFT OUTER BREAST AND LEFT AXILLARY , ? TENDERNESS ? COMPARISONS: Comparison has been made to prior examinations currently ? available. ? FINDINGS: ? RIGHT BREAST MAMMOGRAPHY: Full field digital whole breast 2D (C-view) ? and 3D CC and MLO views of the right breast were obtained. CAD ? technology was utilized. ? There are scattered areas of fibroglandular density. There is no ? suspicious mass, architectural distortion or suspicious ? microcalcification. ? DIAGNOSTIC LEFT BREAST MAMMOGRAPHY: Full field digital whole breast ? 2D (C-view) and 3D CC, XCCL and MLO views of the left breast were ? obtained. CAD technology was utilized. ? There are scattered areas of fibroglandular density. Square markers ? were placed over the outer left breast to denote the area of pain. ? There is no suspicious mass, architectural distortion or suspicious ? microcalcification ? DIAGNOSTIC LEFT BREAST ULTRASOUND: The outer left breast was scanned ? from the 12 o'clock position to the 6 clock, covering the area of ? pain as directed by the patient. ? No suspicious sonographic abnormality was detected. ? RIGHT BREAST IMPRESSION: Negative. ? LEFT BREAST IMPRESSION: Negative. No imaging findings to explain the ? patient's left breast pain. ? FINAL ASSESSMENT: ??SCREENING RIGHT BREAST MAMMOGRAM - BI-RADS ? Category 1 - Negative. ? FINAL ASSESSMENT: ??DIAGNOSTIC LEFT BREAST MAMMOGRAM/ULTRASOUND - ? BI-RADS Category 1 - Negative. ? PAGE 1 ? Signed Report ? (CONTINUED) ? RECOMMENDATION: Recommend clinical follow-up for left breast pain. ? Recommend continued annual bilateral screening mammography which is ? next due in May 2021. ? The patient was told the results and recommendations following the ? study by the repair weaver ? These results will be communicated to your patient via a lay letter ? from Radiology. If any additional imaging is needed we will contact ? your patient directly. ? . ? REPORT SIGNED IN OTHER VENDOR SYSTEM 05/25/2020 ?Reported By: Aquiles Brooke MD ? CC: ? Transcribed Date/Time: 05/25/2020 (1133) ? Photo Lab Technician: ? Printed Date/Time: 05/25/2020 (7001) ? PAGE 2 ? Signed Report ? Procedure Note Aquiles Brooke MD - 05/25/2020 EXAM: MAMMOGRAM/MAMMO BILATERAL DX W ALIYA EX. D/ (1042) CLINICAL INFORMATION: LEFT OUTER BREAST AND LEFT AXILLARY TENDERNESS LEFT DIAGNOSTIC, RIGHT SCREENING DIAGNOSTIC LEFT BREAST MAMMOGRAM DIAGNOSTIC LEFT BREAST ULTRASOUND SCREENING RIGHT BREAST MAMMOGRAM UNILATERAL BREAST LIMITED, MAMMO BILATERAL DX W ALIYA SIGNS AND SYMPTOMS/COMMENTS: LEFT OUTER BREAST AND LEFT AXILLARY , TENDERNESS COMPARISONS: Comparison has been made to prior examinationscurrently available. FINDINGS: RIGHT BREAST MAMMOGRAPHY: Full field digital whole breast 2D(C-view) and 3D CC and MLO views of the right breast were obtained. CAD technology was utilized. There are scattered areas of fibroglandular density. There is no suspicious mass, architectural distortion or suspicious microcalcification. DIAGNOSTIC LEFT BREAST MAMMOGRAPHY: Full field digital whole breast 2D (C-view) and 3D CC, XCCL and MLO views of the left breast were obtained. CAD technology was utilized. There are scattered areas of fibroglandular density. Square markers were placed over the outer left breast to denote the area of pain. There is no suspicious mass, architectural distortion or suspicious microcalcification DIAGNOSTIC LEFT BREAST ULTRASOUND: The outer left breast wasscanned from the 12 o'clock position to the 6 clock, covering the area of pain as directed by the patient. No suspicious sonographic abnormality was detected. RIGHT BREAST IMPRESSION: Negative. LEFT BREAST IMPRESSION: Negative. No imaging findings to explainthe patient's left breast pain. FINAL ASSESSMENT: SCREENING RIGHT BREAST MAMMOGRAM - BI-RADS Category 1 - Negative. FINAL ASSESSMENT: DIAGNOSTIC LEFT BREAST MAMMOGRAM/ULTRASOUND - BI-RADS Category 1 - Negative. PAGE 1 Signed Report (CONTINUED) RECOMMENDATION: Recommend clinical follow-up for left breast pain. Recommend continued annual bilateral screening mammography which is next due in May 2021. The patient was told the results and recommendations following the study by the repair weaver These results will be communicated to your patient via a lay letter from Radiology. If any additional imaging is needed we will contact your patient directly. . REPORT SIGNED IN OTHER VENDOR SYSTEM 05/25/2020 Reported By: Aquiles Brooke MD CC: Transcribed Date/Time: 05/25/2020 (1133) Photo Lab Technician: Printed Date/Time: 05/25/2020 (0794) PAGE 2 Signed Report Vicky Pinon MD [facility] documented in this encounter Visit Diagnoses Not on filedocumented in this encounter Care Teams Hair Dryer Relationship Specialty Start Date End Date Haven Lawrence MD PCP - General Internal Medicine - Primary Care 01/20/20 02/13/23 Pastora Brewster NP [address] [place] [phone] PCP - General Internal Medicine - Primary Care 02/14/23 documented as of this encounter
--- OUTSIDE RECORDS SUMMARY | 2023-10-14 01:04 | XMS_ITS | Encounter Summary ---
Author Organization [facility] Address [address] [place] [address] Care Team Providers Care Tamale Maker Name Role Phone Haven Lawrence MD Primary Care Provider Reason for Visit * Reason Comments Gynecologic Exam AE - due for Pap/HPV , notes some left breast/axillary tenderness Encounter Details Date Type Department Care Team (Late st Contact Info) Description 05/12/2020 13:40 EDT Office Visit [facility] [address] [place], [place] [id number] Vicky Pinon MD [address] [facility], [address] [place] [address] Encounter for screening mammogram for malignant neoplasm of breast (Primary Dx); Screening for cervical cancer; Breast tenderness Social History Tobacco Use Types Packs/Day Years [...] Sign Reading Time Taken Comments Blood Pressure 118/72 05/12/2020 1348 EDT Pulse - - Temperature - - Respiratory Rate - - Oxygen Saturation - - Inhaled Oxygen Concentration - - Weight 74.4 kg (164 lb) 05/12/2020 1348 EDT Height 167.6 cm (5' 6) 05/12/2020 1348 EDT Body Mass Index 26.47 05/12/2020 1348 EDT [...] as of this encounter Progress Notes * Kelsey Jones RN - 05/12/2020 1340 EDT Pap 04/2014 Neg/HPV Neg Mammo 01/2019 Cat 1 Hemoglobin A1C 01/2019 - 5.2 Thyroid Pitt 01/2019 - TSH 1.73 Lipids 01/2019 normal Declined answering questions on SBIRT form Pap/HPV specimen appropriately labeled and sent to lab. * Vicky Pinon MD - 05/12/2020 1340 EDT Subjective: Lexis Turner is a 39 y.o. female here for routine annual exam. Current Complaints: tenderness in left outer breast and arm pit. No masses, skin changes, or nippledischarge. Thinks could be MSK snowmobiling. Gynecologic History Patient's last menstrual period was 04/21/2020. Menstrual cycles: regular, no issues Sexual activity: yes, with lobsterman male partner Contraception: none STI screening: no risk factors Last Pap: 04/2014 nml co-testing Last Mammogram: 01/2019 BIRADSs 1 Other Health Maintenance Screening: Cholesterol: 01/2019 normal Blood glucose: 01/2019 - 5.2 TSH: 01/2019 - TSH 1.73 Colonoscopy: NA Bone density: NA OB History 2 Para 2 Term 2 AB Living 2 SAB TAB Ectopic Multiple Live Births 2 Patient Active Problem List Diagnosis ??? Chronic migraine ??? Familial hypercholesterolemia ??? Urinary frequency ??? Current smoker ??? Breast tenderness Past Medical History: Diagnosis Date ??? Depression [...] Cancer Paternal Grandfather ??? Fibroids Paternal Cousin Current Outpatient Medications Medication Sig Dispense Refill ??? ibuprofen (MOTRIN) 200 mg tablet Take 200 mg by mouth every 6 hours as needed for Pain. ??? promethazine (PHENERGAN) 25 mg tablet TAKE ONE TABLET BY MOUTH EVERY SIX HOURS NEEDED FOR NAUSEA (Patient not taking: Reported on 05/12/2020) 20 Tab 0 ??? promethazine (PHENERGAN) 25 mg tablet ??? rizatriptan (MAXALT) 10 mg tablet Take 10 mg by mouth as needed for Migraine. May repeat in 2 hours if needed No current facility-administered medications for this visit. Allergies Allergen Reactions ??? Amoxicillin Hives Other [...] Oxycodone-Acetaminophen GI upset Other reaction(s): GI upset Social History Socioeconomic History ??? Marital status: Spouse name: Not on file ??? Number of children: 2 ??? Years of education: Not on file ??? Highest education level: Not on file Occupational History ??? Not on file Social Needs ??? Financial resource strain: Not on file ??? Food insecurity Worry: Not on file Inability: Not on file ??? Transportation needs Medical: Not on file Non-medical: Not on file Tobacco Use ??? Smoking status: Current Every Day Smoker Packs/day: 0.25 Years: 20.00 Pack years: 5.00 Types: Cigarettes Start date: 1995 ??? Smokeless tobacco: Never Used ??? Tobacco comment: smoking 1 cigarette per day Substance and Sexual Activity ??? Alcohol use: Yes Frequency: Monthly or less Drinks per session: 1 or 2 Binge frequency: Never ??? Drug use: Never ??? Sexual activity: Yes Partners: Male control/protection: Coitus interruptus Comment: same partner x 20 years Lifestyle ??? Physical activity Days per week: Not on file Minutes per session: Not on file ??? Stress: Not on file Relationships ??? Social connections Talks on phone: Not on file Gets together: Not on file Attends catholic service: Not on file Active member of club or organization: Not on file Attends meetings of clubs or organizations: Not on file Relationship status: Not on file ??? Intimate partner violence Fear of current or ex partner: Not on file Emotionally abused: Not on file Physically abused: Not on file Forced sexual activity: Not on file Other Topics Concern ??? Not on file Social History Narrative ??? Not on file Review of Systems See HPI. 12 point review of systems otherwise negative Objective: BP 118/72 (BP Cuff Sizes: Adult, regular) Ht 167.6 cm (66) Wt 74.4 kg (164 lb) LMP 04/21/2020 BMI 26.47 kg/m?? Physical Exam Constitutional: She appears well-developed. No distress. HENT: Head: Normocephalic. Eyes: Conjunctivae are normal. Neck: Neck supple. No thyromegaly present. Cardiovascular: Normal rate, regular rhythm and intact distal pulses. Pulmonary/Chest: Effort normal and breath sounds normal. No respiratory distress. She has no wheezes. Right breast exhibits no mass, no nipple discharge, no skin change and no tenderness. Left breastexhibits no mass, no nipple discharge, no skin change and no tenderness. Abdominal: Soft. She exhibits no distension and no mass. There is no hepatomegaly. There is no abdominal tenderness. There is no rebound and no guarding. Genitourinary: Perineum normal and urethra normal. There is no rash, tenderness or lesion on the right labia. There is no rash, tenderness or lesion on the left labia. No vaginal discharge or tenderness. No vaginal tenderness. Right adnexum displays no mass, no tenderness and no fullness. Left adnexum displays no mass, no tenderness and no fullness. Cervix exhibits no discharge. Uterus is not enlarged, not fixed and not tender. Neurological: She is alert. Skin: Skin is warm and dry. Psychiatric: She has a normal mood and affect. Her behavior is normal. Assessment and Plan Annual exam 1. Contraception: none, declines 2. Health maintenance screening: co-testing done today 3. Education Reviewed and Recommended: Self Breast Exams, Skin Cancer Screening. 4. Follow up: 1 year Problem List Items Addressed This Visit Breast tenderness Likely MSK but due for mammo, will get Dx mammo. Other Visit Diagnoses Encounter for screening mammogram for malignant neoplasm of breast - Primary Relevant Orders DIAGNOSTIC MAMMOGRAM AND BREAST ULTRASOUND MA BREAST SCREENING ALIYA BILATERAL Screening for cervical cancer Relevant Orders PAP TEST HUMAN PAPILLOMAVIRUS (HPV) DETECTION-HIGH RISK TYPES Vicky Pinon MD documented in this encounter Miscellaneous Notes * Assessment & Plan Note - Vicky Pinon MD - 05/12/2020 8868 EDTAssociated Problem(s): Breast tenderness (Resolved 07/05/2021) Likely MSK but due for mammo, will get Dx mammo. documented in this encounter Plan of Treatment Upcoming Encounters Date Type Department Care Team (Late st Contact Info) Description 12/24/2023 15:30 EST Office Visit [facility] - [place] [address] [place] [address] Pastora Brewster, LACY [address] [place] [address] Scheduled Orders Name Type Priority Associated Diagnoses Orde r Schedule PAP TEST Pathology Routine Screening for cervical cancer Ordered: 05/12/2020 HUMAN PAPILLOMAVIRUS (HPV) DETECTION-HIGH RISK TYPES Microbiology Routine Screening for cervical cancer Ordered: 05/12/2020 documented as of this encounter Procedures Procedure Name Priority Date/Time Associated Diagnosis Comments [facility] - [facility] Routine 05/12/2020 9:50 EDT Encounter for screening mammogram for malignant neoplasm of breast documented in this encounter Results * [facility]TOLOGY [facility]SULT [facility] (05/12/2020 9:50 EDT) [facility] CYTOLOGY CONSULT [facility] (See below) () 2020 7:43 EDT [facility] Comment: Disclaimers: 1)Reports generated via electronic interface contain original data; however they are lacking the format of the original report. Caution should be taken when reading/interpreting unformatted reports. 2) ??Please reference the paper report if the text (End of Report) is not displayed. PAP SPECIMENS A. Cervix and/or Endocervix , ThinPrep Imaging System with Manual Evaluation SOFT BOARDER 2 SPECIMEN ADEQUACY Satisfactory for Evaluation - transformation zone component present SOFT BOARDER 2 GENERAL CATEGORIZATION Negative for intraepithelial lesion or malignancy CYTOLOGY ATTESTATION . at 1459 CLINICAL HISTORY Clinical History, Signs, Symptoms, Chief Complaint, Pertaining to This Order: ??See below Last Menstral Period: 04/21/20 HPV REFLEX The result for the Human Papillomavirus (HPV) Detection-High Risk Types is Negative. No E6 or E7 mRNA is detected from HPV types 16,18,31,33,35,39,45,51,52,56,58,59,66, and 68 by contract negotiator mediated amplification.Testing was performed on specimen ??[id number] and was resulted on 05/21/2020 1457 EDT by NAVEEN, LAB INSTRUMENT RESULTS IN [facility] PERFORMING LAB [facility] SCANNED IMAGES End of Report Test performed or referred by The [address] [address] 05/12/2020 9:50 EDT 05/13/2020 9:50 EDT Vicky Pinon MD HEMATOLOGY & PF4 ORD ERABLES [facility] [address] [place] [address] documented in this encounter Visit Diagnoses Diagnosis Encounter for screening mammogram for malignant neoplasm of breast- Primary Other screening mammogram Screening for cervical cancer Screening for malignant neoplasm of the cervix Breast tenderness Mastodynia documented in this encounter Discontinued Medications Medication Sig Discontinue Reason Start Date End Da te clindamycin (CLEOCIN) 150 mg capsule Therapy completed 0 05/12/2020 documented as of this encounter Historical Medications * This list may reflect changes made after this encounter. Medication Sig Dispensed Refills Start Date End Date ibuprofen (MOTRIN) 200 mg tablet Take 4 Tablets by mouth every 6 hours as needed for Pain. rizatriptan (MAXALT) 10 mg tablet Take 10 mg by mouth as needed for Migraine. May repeat in 2 hours if needed 05/24/2020 added in this encounter Care Teams Tamale Maker Relationship Specialty Start Date End Date Haven Lawrence MD PCP - General Internal Medicine - Primary Care 01/20/20 02/13/23 documented as of this encounter
--- OUTSIDE RECORDS SUMMARY | 2023-10-14 01:04 | XMS_ITS | Encounter Summary ---
Author Organization [facility] Address [address] [place] [address] Care Team Providers Care Hydraulic Press Tender Name Role Phone Haven Lawrence MD Primary Care Provider [phone] Reason for Visit * Reason Onset Date Comments Prior Auth, Medication 05/17/2022 Encounter Details Date Type Department Care Team (Late st Contact Info) Description 05/17/2022 Telephone [facility] - [place] [address] [place], [place] [phone] Haven Lawrence MD [address] [place], [place] [phone] Prior Auth, Medication Social History Tobacco Use [...] slept in a halfway (including now)? No 07/05/2021 Interpersonal Safety Answer [...] encounter Miscellaneous Notes * Telephone Encounter - Naty Hurst MA - 06/07/2022 1635 EDT PA not handled by [facility] * Telephone Encounter - Naty Hurst MA - 05/17/2022 0842 EDT PA for Eucerin Eczema cream required; sent to cover my meds. documented in this encounter Plan of Treatment Upcoming Encounters Date Type Department Care Team (Late st Contact Info) Description 12/24/2023 15:30 EST Office Visit [facility] - [address] [id number] Pastora Brewster NP [address] [place] [phone] documented as of this encounter Visit Diagnoses Not on filedocumented in this encounter Care Teams Hydraulic Press Tender Relationship Specialty Start Date End Date Haven Lawrence MD PCP - General Internal Medicine - Primary Care 01/20/20 02/13/23 documented as of this encounter
--- OUTSIDE RECORDS SUMMARY | 2023-10-14 01:04 | XMS_ITS | Encounter Summary ---
Author Organization [facility] Address [address] [place] [address] Care Team Providers Care Grind Operator Name Role Phone Haven Lawrence MD Primary Care Provider [phone] Encounter Details Date Type Department Care Team (Latest Contact Info) Description 06/12/2021 Travel Social History Tobacco Use Types Packs/Day [...] 21:59 EDT documented as of this encounter Functional [...] Upcoming Encounters Date Type Department Care Team ([facility] st Contact Info) Description 12/24/2023 15:30 EST Office Visit [facility] Adult Primary Care - [address] [id number] Pastora Brewster, LABOR RELATIONS OR PERSONNEL NEGOTIATOR [address] [place] [phone] documented as of this encounter Visit Diagnoses Not on filedocumented in this encounter Care Teams Grind Operator Relationship Specialty Start Date End Date Haven Lawrence MD PCP - General Internal Medicine - Primary Care 01/20/20 02/13/23 documented as of this encounter
--- OUTSIDE RECORDS SUMMARY | 2023-10-14 01:04 | XMS_ITS | Encounter Summary ---
Author Organization [facility] Address [address] [place] [address] Care Team Providers Care Automatic Equipment Technician Name Role Phone Haven Lawrence MD Primary Care Provider [phone] Reason for Visit * Reason Comments Annual Exam Encounter Details Date Type Department Care Team (Late st Contact Info) Description 07/05/2021 9:30 EDT Office Visit [facility] Adult [facility] - [place] [address] [place], [place] [address] Haven Lawrence MD [address] [place], [place] [phone] Annual physical exam (Primary Dx); Migraine with aura and without status migrainosus, not intractable; Gastroesophageal reflux disease without esophagitis; 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 No 07/05/2021 Interpersonal Safety Answer [...] Sign Reading Time Taken Comments Blood Pressure 120/68 07/05/2021 0933 EDT Pulse 86 07/05/2021 0933 EDT Temperature - - Respiratory Rate - - Oxygen Saturation 98% 07/05/2021 0933 EDT Inhaled Oxygen Concentration - - Weight 79.2 kg (174 lb 11.2 oz) 07/05/2021 0933 EDT Height 158 cm (5' 2.21) 07/05/2021 0933 EDT Body Mass Index 31.74 07/05/2021 0933 EDT documented in this encounter [...] this encounter Patient Instructions * Patient Instructions* Haven Lawrence - 07/05/2021 9:30 EDT For migraine headaches start Propranolol twice daily for at least 6-12 months to see if it works. Please get fasting blood work done any tie within the next 12 months. documented in this encounter Ordered Prescriptions Prescription Sig Dispensed Refills Start Date End Da te clotrimazole-betamethaso ne (LOTRISONE) creamIndications:Dermati tis Apply twice daily to affected skin 15 g 1 07/05/2021 01/25/2023 rizatriptan (MAXALT-FORKLIFT DRIVER) 10 mg disintegrating tabletIndications:Persis tent migraine aura without cerebral infarction and with status migrainosus, not intractable take ONE TABLET by MOUTH NEEDED for migraine 12 Tablet 3 07/05/2021 01/23/2022 omeprazole (PRILOSEC) 20 mg capsuleIndications:Gastr oesophageal reflux disease without esophagitis Take 1 capsule by mouth daily. 180 capsule 1 07/05/2021 05/09/2022 propRANolol (INDERAL) 20 mg tabletIndications:Migrai ne with aura and without status migrainosus, not intractable Take 1 Tablet by mouth 2 times daily. 180 Tablet 1 07/05/2021 05/15/2022 documented in this encounter Progress Notes * Haven Lawrence - 07/05/2021 0930 EDT [facility] Primary Care Chief Complaint: Annual physical History of Present Illness: Lexis Turner is a 41 y.o.female with current chronic medical conditions including migraine headaches with aura, GERD, insomnia, urinary frequency, hyperlipidemia who presents for annual physical. Lexis's main complaint is chronic migraine headaches. She takes ibuprofen almost on a daily basis. Migraine headaches with aura since second grade. Her migraines are preceded by severe nausea. She was on Topamax without relief. States that using Rizatriptan helps. Promethazine relieves nausea. We tried propranolol but she did not feel any relief with the medication. She did get Botox injections for migraine headaches without relief. Was followed by Dr. Richar Tilley from neurology. Chronic right knee pain. Seen in the emergency department on 06/12/2021 with an x- ray showing small effusion. She was seen at [facility] orthopedics on 06/28/2021 with a diagnosis of MCL sprain. Is planning to start physical therapy. Urinary frequency since childhood. Lexis continues to work at the [employer] elementary [employer]. Review Of Systems: Review of [...] Negative for joint pain and myalgias. Neurological: Positive for headaches. Negative for dizziness, sensory change and focal weakness. Psychiatric/Behavioral: Negative for depression. The patient has insomnia. The patient is not nervous/anxious. Past Medical History: Past Surgical History: Procedure Laterality Date ??? CYST REMOVAL 1998 Social History Socioeconomic History ??? Marital status: ??? 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 Smoking status: Current [...] Familial hypercholesterolemia ??? Urinary frequency Current Medications: Current Outpatient Medications: ??? clotrimazole-betamethasone (LOTRISONE) cream, Apply twice daily to affected skin, Disp: 15 g, Rfl: 1 ??? guaiFENesin-codeine (GUAIFENESIN AC) 100-10 mg/5 mL liquid, 2 teaspoons every 4 hours as neededfor cough. (Patient not taking: Reported on 06/14/2021), Disp: 120 mL, Rfl: 0 ??? ibuprofen (MOTRIN) 200 mg tablet, Take 800 mg by mouth every 6 hours as needed for Pain. , Disp: , Rfl: ??? omeprazole (PRILOSEC) 20 mg capsule, Take 1 capsule by mouth daily., Disp: 180 capsule, Rfl: 1 ??? promethazine (PHENERGAN) 25 mg tablet, Take 1 Tablet by mouth every 8 hours as needed for Nausea., Disp: 24 Tablet, Rfl: 5 ??? propRANolol (INDERAL) 20 mg tablet, Take 1 Tablet by mouth 2 times daily., Disp: 180 Tablet, Rfl: 1 ??? rizatriptan (MAXALT-FORKLIFT DRIVER) 10 mg disintegrating tablet, take ONE TABLET by MOUTH NEEDED for migraine, Disp: 12 Tablet, Rfl: 3 ??? topiramate (TOPAMAX) 50 mg tablet, TAKE ONE TABLET BY MOUTH TWICE DAILY (Patient not taking: Reported on 05/29/2021), Disp: 180 Tablet, Rfl: 1 Allergies: Allergen Reactions ??? Amoxicillin Hives Other [...] reaction(s): GI upset Objective: Physical Exam: BP 120/68 (BP Cuff Location: Left arm, BP Patient Position: Sitting, BP Cuff Sizes: Adult, regular) Pulse 86 Ht 158 cm (62.21) Wt 79.2 kg (174 lb 11.2 oz) SpO2 98% BMI 31.74 kg/m?? General: Patient is no acute distress HEENT: Normocephalic/Atraumatic Neck: Supple without rigidity, full ROM, no lymphadenopathy or thyromegaly Chest: Dental Specialist offered, patient declined. Breast exam bilaterally, no axillary lymphadenopathy Respiratory: No respiratory distress, clear to auscultation without wheezes, rales, rhonchi or crackles Cardiac: Regular rate and rhythm, normal S1 & S2, no murmurs, Abdomen: Non-distended, positive bowel sounds, soft, non-tender without guarding, rigidity or rebound. No masses or hepatosplenomegaly. Dermatologic: Left brothers dermatitis and small area of dermatitis between the breast Neurologic: Oriented x 4, muscle strength 4/4, normal gait, cranial nerves intact Psychiatric: Alert and oriented, answers questions appropriately Preventative medicine: Mammogram 05/25/2020: Negative Pap/HPV 05/12/2020: Negative Assessment & Plan by Problems: 1. Annual physical exam Up-to-date on age-appropriate screenings and immunizations. - COMPREHENSIVE METABOLIC PANEL (CMP); Future - LIPID PROFILE (INCLUDES CHOLESTEROL, TRIGLYCERIDES, HDL, LDL); Future 2. Migraine with aura and without status migrainosus, not intractable I would recommend trying propranolol again but this time trying it for longer which means 6 to 12 months to see if symptoms improve. I explained to Lexis that this is not a treatment of acute headaches but more of a prophylactic management and therefore needs to be taken longer. Recommend checking blood pressure and pulse and to let me know if pulse is less than 50 or blood pressure is low or symptomatic. - propRANolol (INDERAL) 20 mg tablet; Take 1 Tablet by mouth 2 times daily. Dispense: 180 Tablet; Refill: 1 3. Gastroesophageal reflux disease without esophagitis On omeprazole. We discussed that long-term use of omeprazole may cause low magnesium levels, affectthe kidney and bone density. Unfortunately Lexis has significant reflux and heartburn symptoms when not on omeprazole. Omeprazole does control the symptoms well. Discussed trial of [id number] Tums or Gaviscon. We also discussed trial of apple cider vinegar diluted in water. - omeprazole (PRILOSEC) 20 mg capsule; Take 1 capsule by mouth daily. Dispense: 180 capsule; Refill: 1 4. 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 Dermatitis Might be contact dermatitis, possible eczema versus psoriasis. I would recommend trial of Lotrisoneto see if symptoms improve. - clotrimazole-betamethasone (LOTRISONE) cream; Apply twice daily to affected skin Dispense: 15 g; Refill: 1 6. Elevated glucose level - HEMOGLOBIN A1C; Future 7. Vitamin D deficiency - VITAMIN D (25,OH); Future Follow-up in 1 year or sooner if needed. Haven Lawrence. , PhD documented in this encounter Plan of Treatment Upcoming Encounters Date Type Department Care Team (Late st Contact Info) Description 12/24/2023 15:30 EST Office Visit [facility] Adult Primary [facility] - [place] [address] [place], [place] [phone] Pastora Brewster, LACY [address] [place] [phone] documented as of this encounter Visit Diagnoses Diagnosis Annual physical exam- Primary Routine general medical examination at a health care facility Migraine with aura and without status migrainosus, not intractable Migraine with aura, without mention of intractable migraine without mention of status migrainosus Gastroesophageal reflux disease without esophagitis Esophageal reflux 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, not intractable Persistent migraine aura without cerebral infarction, without mention of intractable migraine with status migrainosus Dermatitis Contact dermatitis and other eczema, due to unspecified cause Elevated glucose level Vitamin D deficiency Unspecified vitamin D deficiency documented in this encounter Discontinued Medications Medication Sig Discontinue Reason Start Date End Da te rizatriptan (MAXALT-FORKLIFT DRIVER) 10 mg disintegrating tabletIndications:Persist ent migraine aura without cerebral infarction and with status migrainosus, not intractable take ONE TABLET by MOUTH NEEDED for migraine Reorder 06/09/2021 07/05/2021 documented as of this encounter Care Teams Automatic Equipment Technician Relationship Specialty Start Date End Date Haven Lawrence MD PCP - General Internal Medicine - Primary Care 01/20/20 02/13/23 documented as of this encounter
--- OUTSIDE RECORDS SUMMARY | 2023-10-14 01:04 | XMS_ITS | Encounter Summary ---
Author Organization [facility] Address [address] [place] [address] Care Team Providers Care Business Solutions Director Name Role Phone Haven Lawrence MD Primary Care Provider [phone] Encounter Details Date Type Department Care Team (Latest Contact Info) Description 06/14/2021 Travel Social History Tobacco Use Types Packs/Day [...] suspected to have Coronavirus/COVID-19? No / Unsure 06/14/2021 14:12 EDT documented as of this encounter Functional [...] 12/24/2023 15:[address] [facility] Adult Primary Care - [address] [address] Pastora Brewster NP [address] [place] [address] documented as of this encounter Visit Diagnoses Not on filedocumented in this encounter Care Teams Business Solutions Director Relationship Specialty Start Date End Date Haven Lawrence MD PCP - General Internal Medicine - Primary Care 01/20/20 02/13/23 documented as of this encounter
--- OUTSIDE RECORDS SUMMARY | 2023-10-14 01:04 | XMS_ITS | Encounter Summary ---
Author Organization [facility] Address [address] [place] [address] Care Team Providers Care Cake Froster Name Role Phone Haven Lawrence MD Primary Care Provider [phone] Reason for Visit * Reason Onset Date Comments Other 09/02/2020 Encounter Details Date Type Department Care Team ([facility] st Contact Info) Description 09/02/2020 Telephone [facility] Adult Primary Care - [place] [address] [place], [place] [address] Haven Lawrence MD [address] [place], [place] [id number] Other Social History Tobacco Use Types Packs/Day [...] encounter Miscellaneous Notes * Telephone Encounter - Kylee Lord - 09/02/2020 1214 EDT Patient called back and said she understands not to mix the two medications. States you can call her back if you like. * Telephone Encounter - Conchis Stephens RN - 09/02/2020 1149 EDT Advised patient to try Maxalt rapidly disintegrating tablet and give update to Dr. Lawrence. Copay of Maxalt is $3.81. If the rapidly disintegrating tablet does not work, we will send the sumatriptan nasal spray. [place] pharmacist aware Sending to Dr. Lawrence * Telephone Encounter - Kylee Lord - 09/02/2020 0914 EDT Called patient to do MRI screening form but she wants to put this on hold for right now. Will give me a call back when she is ready for it. Also stated she will try the medication that was prescribed to her but also was wondering about thespray she puts in her nose if she can get that script as well. documented in this encounter Plan of Treatment Upcoming Encounters Date Type Department Care Team (Late st Contact Info) Description 12/24/2023 15:30 EST Office Visit [facility] Adult Primary Care - [address] [address] Pastora Brewster, LACY [address] [place] [address] documented as of this encounter Visit Diagnoses Not on filedocumented in this encounter Discontinued Medications Medication Sig Discontinue Reason Start Date End Da te SUMAtriptan (IMITREX) 5 mg/actuation nasal spray Instill 1 [place] into right nostril once as needed for up to 1 dose (migraines). Duplicate Therapy 09/02/2020 09/02/2020 documented as of this encounter Care Teams Cake Froster Relationship Specialty Start Date End Date Haven Lawrence MD PCP - General Internal Medicine - Primary Care 01/20/20 02/13/23 documented as of this encounter
--- OUTSIDE RECORDS SUMMARY | 2023-10-14 01:04 | XMS_ITS | Encounter Summary ---
Author Organization [facility] Address [address] [place] [address] Care Team Providers Care Graduate Nurse Name Role Phone Haven Lawrence MD Primary Care Provider [phone] Reason for Visit * Reason Comments New Patient Visit * Consult (See Order Priority) - Order Cancelled Specialty Diagnoses / Procedures Referred By Dallin ford Referred To Contact Orthopedic Surgery Diagnoses Effusion of right knee joint Juanita Harris, DO [address] [place] [address] [facility] [place] [place] [facility] [address] [place] [address] Referral ID Status Reason Start Date Expiration Date Visits Requested Visits Authorized [id number] Order Cancelled Specialty Services Required 06/13/2021 1 1 Encounter Details Date Type Department Care Team (Late st Contact Info) Description 06/14/2021 14:[address] [facility] [place] [facility] [address] [place] [address] Jose Gómez PA-C [address] [facility] [address] [place] [address] Strain of right knee, initial [...] 14:12 EDT documented as of this encounter Last Filed Vital Signs Vital Sign Reading Time Taken Comments Blood Pressure - - Pulse 102 06/14/2021 1415 EDT Temperature - - Respiratory Rate - - Oxygen Saturation 98% 06/14/2021 1415 EDT Inhaled Oxygen Concentration - - Weight [...] Progress Notes * Mar Luque MA - 06/14/2021 1415 EDT Lexis presents today for a follow up of her right knee. She was seen in the ED and per referral note: Patient reports she was attempting to move a heavy piece of furniture. Patient reports she was standing on the outside of the staircase trying to push the furniture. She went to get down and was further from the ground that she thought. Patient reports when she stepped down her right leg buckled and she fell to the side XR's done 06/12 * Jose Gómez PA-C - 06/14/2021 3705 EDT CHIEF COMPLAINT: Right knee pain Chief Complaint Patient presents with ??? Right Knee - New Patient Visit SUBJECTIVE: Lexis here for orthopedic evaluation of right knee pain. Helping carry a sarahi-size bed upstairs at home with 2 other people. She missed a step and fell twisting her right knee. Seen inthe emergency department on 06/12/2021 for right knee strain and joint effusion. She has a small tibial plateau fracture of the right knee about 5 years ago and still has her knee brace which she has been using. She complains of pain and swelling tightness anterior to posterior. Pain throughout the entire knee joint cannot localize 1 specific area. She feels there is a slight trend towards improvement having less pain however range of motion is still limited and continues to have swelling Past history of right tibial plateau fracture, migraines The past medical, family and social history [...] hours as needed for Nausea. ??? rizatriptan (MAXALT-SCHOOL BUS MECHANIC) 10 mg disintegrating tablet take ONE TABLET by MOUTH NEEDED for migraine ??? topiramate (TOPAMAX) 50 mg tablet TAKE ONE TABLET BY MOUTH TWICE DAILY (Patient not taking: Reported on 05/29/2021) No facility-administered medications prior to visit. OBJECTIVE: Pulse 102 SpO2 98% There is no height or weight on [...] steady gait. Exam of the right knee 1-2+ joint effusion no erythema, fluctuance or signs of infection. She can comfortably flex to about 45 degrees and painful thereafter. Maintain full extension with intact straight leg raise. Diffuse tenderness of the entire knee both anterior and posterior. Stress testing was deferred ASSESSMENT: Right knee pain and joint effusion PLAN: X-ray of the right knee from 06/12/2021 FINDINGS: Bones/joints: Small joint effusion. Soft tissues: Normal. IMPRESSION: Small joint effusion. At this time she is quite tender and has a significant joint effusion. She was provided with Tubigrip and I sent her knee brace at 0-70 degrees of flexion. Weightbearing activities as tolerated however she should avoid going up and down stairs, heavy lifting, bending and squatting. I would like to see most of his joint effusion resolve and then repeat the exam in 2 weeks. She was given referral to physical therapy to begin in 2 weeks from now, after next appointment. OTC pain medications as needed This note was prepared using voice recognition software and the EMR. There may be inadvertent errors and omissions. Eh Gómez PA-C 06/14/2021 documented in this encounter Plan of Treatment Upcoming Encounters Date Type Department Care Team (Late st Contact Info) Description 12/24/2023 15:30 EST Office Visit [facility] Adult Primary Care - [address] [address] Pastora Brewster NP [address] [place] [address] documented as of this encounter Visit Diagnoses Diagnosis Strain of right knee, initial encounter- Primary documented in this encounter Care Teams Graduate Nurse Relationship Specialty Start Date End Date Haven Lawrence MD PCP - General Internal Medicine - Primary Care 01/20/20 02/13/23 documented as of this encounter
--- OUTSIDE RECORDS SUMMARY | 2023-10-14 01:05 | XMS_ITS | Encounter Summary ---
Author Organization [facility] Address [address] [place] [address] Care Team Providers Care Etcher Printed Circuit Boards Name Role Phone Unavailable Primary Care Provider Unavailabl e Encounter Details Date Type Department Care Team (Latest Contact Info) Description 04/29/2014 11:10 EDT - 04/29/2014 23:59 EDT Hospital Encounter [facility] [address] [place] [address] Unknown, Provider, Discharge Disposition: Home or Self Care Social History Tobacco Use Types Packs/Day Years Used Date Smoking Tobacco: Never Assessed Sex and Gender Information Value Date Recorded Sex Assigned at Not on file Gender Identity Not on file Sexual Orientation Not on file documented as of this encounter Discharge Disposition Disposition Code Departure Means Destination Home or Self Fci documented in this encounter Plan of Treatment Upcoming Encounters Date Type Department Care Team (Late st Contact Info) Description 12/24/2023 15:30 EST Office Visit [facility] Adult Primary Care - [place] [address] [place] [address] Pastora Brewster NP [address] [place] [phone] documented as of this encounter Visit Diagnoses Not on filedocumented in this encounter
--- OUTSIDE RECORDS SUMMARY | 2023-10-14 01:05 | XMS_ITS | Encounter Summary ---
Author Organization [facility] [place] [address] [place] [address] Care Team Providers Care Rn Admissions Name Role Phone None Primary Care Provider Unavailabl e Encounter Details Date Type Department Care Team (Late st Contact Info) Description 06/11/2023 6:20 AM EDT Ancillary Procedure [place] [address] David Beverly MD [facility] [place] [address] Social History Tobacco Use Types Packs/Day Years Used Date Smoking Tobacco: Never Assessed Sex and Gender Information Value Date Recorded Sex Assigned at Not on file Gender Identity Not on file Sexual Orientation Not on file documented as of this encounter Plan of Treatment Not on file documented as of this encounter Procedures Procedure Name Priority Date/Time Associated Diagnosis Comments FILM LIBRARY STORAGE ONLY CT HEAD Routine 06/11/2023 6:15 AM EDT documented in this encounter Results * Film Library- Storage Only CT Head (06/11/2023 6:15 AM EDT) Narrative [facility] - 06/11/2023 6:15 AM EDT This exam is auto-finalizing. It's purpose is for storage only. David Beverly MD IMG FILM LIBRARY ORD ERABLES [place], [place] documented in this encounter Visit Diagnoses Not on filedocumented in this encounter Care Teams Rn Admissions Relationship Specialty Start Date End Date None None PCP - General 01/04/10 documented as of this encounter
--- OUTSIDE RECORDS SUMMARY | 2023-10-14 01:05 | XMS_ITS | Clinical Summary ---
Author Organization [facility] Address [facility] [place] [address] Care Team Providers Care Imaging Clerk Name Role Phone None Primary Care Provider Unavailabl e Allergies Active Allergy Reactions Criticality Noted Date Comments Amoxicillin Trihydrate CIS - Hives Cephalexin Monohydrate CIS - Nausea/Vomiting Erythromycin Base CIS - Hives Penicillins CIS - Hives Sulfa (Sulfonamide Antibiotics) CIS - Hives Medications Medication Sig Dispensed Refills Start Date End Date Status norgestimate-ethinyl estradiol (ORTHO TRI-CYCLEN, 28,) 0.18/0.215/0.25 mg-35 mcg (28) tablet 10/07/2001 Active PREDNISONE ORAL 70 mg, PO, QD 10/09/2001 Active lansoprazole (PREVACID) 15 mg capsule 15mg, PO, QD 10/09/2001 Active acetaminophen-codeine (TYLENOL-CODEINE #3) 300-30 mg per tablet 1-2 Tablet(s), PO, Q4-6H 10/09/2001 Active OXYcodone (ROXICODONE) 5 mg immediate release tablet 5mg, PO, Q6H,PRN 10/10/2001 Active Immunizations Name Administration Dates Next Due Influenza Vaccine, Whole 01/27/2008 Social History Tobacco Use Types Packs/Day Years Used Date Smoking Tobacco: Never Assessed Sex and Gender Information Value Date Recorded Sex Assigned at Not on file Gender Identity Not on file Sexual Orientation Not on file Plan of Treatment Health Maintenance Due Date Last Done Comments CT Colonography 1978 Colonoscopy 1978 Colorectal Cancer Screening 1978 FIT DNA 1978 FIT 1978 Sigmoidoscopy (10 year) with FIT yearly 1978 Sigmoidoscopy 1978 HIV screen 1996 Hepatitis C Screening 1996 Hepatitis B vaccine (0-59 yrs) (1) 1997 Tdap adult 1997 Tetanus vaccine 1997 HPV test 2008 PAP Smear 2008 Breast Cancer Share Decision Needed 2018 Breast Cancer screening 2018 Covid-19 Vaccine (2 - 2022- season) 10/13/202212/2021 Influenza (Flu) vaccine (1 o f 1 - Influenza standard series) 10/14/2023 01/27/2008 Care Teams Imaging Clerk Relationship Specialty Start Date End Date None None PCP - General 01/04/10
--- OUTSIDE RECORDS SUMMARY | 2023-10-14 01:05 | XMS_ITS | Encounter Summary ---
Author Organization [facility] Address [facility] [place] [address] Care Team Providers Care Technician Plant And Maintenance Name Role Phone None Primary Care Provider Unavailabl e Encounter Details Date Type Department Care Team (Late st Contact Info) Description 06/11/2023 Telephone Neurosurgery at [facility] [place] [phone] Ila [address] MD [facility] [place] [place] [address] Social History Tobacco Use Types Packs/Day Years Used Date Smoking Tobacco: Never Assessed Sex and Gender Information Value Date Recorded Sex Assigned at Not on file Gender Identity Not on file Sexual Orientation Not on file documented as of this encounter Miscellaneous Notes * Telephone Encounter - Ila St MD - 06/11/2023 8:58 AM EDT Received transfer center call for consultation re: small ventricles and ?bilateral IVH. Briefly, this is a 43F who has a history of migraines who woke up this morning with severe DELCID prompting ED evaluation. DELCID improved with migraine cocktail. Initial vitals notable for HTN with improvement after migraine treatment. Neurologically intact. She received a HCT and CTA which were reportedly normal. Outside provider wanted second opinion on small ventricles and bilateral IVH that was not noted by radiologist. 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 Ventricular caliber WNL. No SAH or blood products noted and CTA is normal. Reassured that these are normal findings of a HCT. No further neurosurgical recommendations necessary. Ila St MD documented in this encounter Plan of Treatment Not on file documented as of this encounter Visit Diagnoses Not on filedocumented in this encounter Care Teams Technician Plant And Maintenance Relationship Specialty Start Date End Date None None PCP - General 01/04/10 documented as of this encounter
--- OUTSIDE RECORDS SUMMARY | 2023-10-14 01:05 | XMS_ITS | Encounter Summary ---
Author Organization [facility] Address [address] [place] [address] Care Team Providers Care Operators School Manager Name Role Phone Unknown, Provider Primary Care Provider [phone] Encounter Details Date Type Department Care Team (Late st Contact Info) Description 09/25/2018 Historical Results Only [facility] Radiology Results [address] [place], [place] [address] Octaviano Lowe MD [address] [facility] [address] [place], [place] [address] Social History Tobacco Use Types Packs/Day Years Used Date Smoking Tobacco: Never Assessed Sex and Gender Information Value Date Recorded Sex Assigned at Not on file Gender Identity Not on file Sexual Orientation Not on file documented as of this encounter Plan of Treatment Upcoming Encounters Date Type Department Care Team (Late st Contact Info) Description 12/24/2023 15:30 EST Office Visit [facility] Adult Primary Care - [place] [address] [place] [address] Pastora Brewster NP [address] [place] [phone] documented as of this encounter Procedures Procedure Name Priority Date/Time Associated Diagnosis Comments XR KNEE 4 OR MORE VIEWS 09/25/2018 13:22 EDT documented in this encounter Results * XR KNEE 4 OR MORE VIEWS (09/25/2018 13:22 EDT) Anatomical Region Laterality Modality Lower Extremities Other 09/25/2018 13:2 2 EDT Narrative 09/25/2018 13:25 EDT ? EXAM: RADIOLOGY/KNEE COMPLETE RT 4+VIEW ?? EX. D/ (0948) ? CLINICAL INFORMATION: ? S82.141A TIBIAL PLATEAU FRACTURE, RIGHT ? INDICATION: S82.141A TIBIAL PLATEAU FRACTURE, RIGHT RIGHT TIBIA FX ? AND SWELLING AND BLEEDING IN THE R ? TECHNIQUE: 4 views right knee. ? COMPARISON: Plain film and CT 09/14/2018. ? FINDINGS: There is a small residual joint effusion. The fracture ? through the anterior aspect of the medial tibial plateau seen on the ? comparison CT is not visible on this exam. Early tricompartmental ? joint space narrowing is noted. No new fracture lines are detected. ? IMPRESSION: ? 1. Improving small joint effusion. ? 2. Known fracture through the anterior medial tibial plateau not ? visible on plain film. ? 3. Early track compartmental osteoarthrosis. ? REPORT SIGNED IN OTHER VENDOR SYSTEM 09/25/2018 ?Reported By: Andrew De Leon MD ? CC: ? Transcribed Date/Time: 09/25/2018 (2547) ? Desizing Machine Operator: ? Printed Date/Time: 10/30/2018 (6637) ? PAGE 1 ? Signed Report ? Procedure Note Andrew De Leon MD - 12/17/2018 EXAM: RADIOLOGY/KNEE COMPLETE RT 4+VIEW EX. D/ (0948) CLINICAL INFORMATION: S82.141A TIBIAL PLATEAU FRACTURE, RIGHT INDICATION: S82.141A TIBIAL PLATEAU FRACTURE, RIGHT RIGHT TIBIA FX AND SWELLING AND BLEEDING IN THE R TECHNIQUE: 4 views right knee. COMPARISON: Plain film and CT 09/14/2018. FINDINGS: There is a small residual joint effusion. The fracture through the anterior aspect of the medial tibial plateau seen onthe comparison CT is not visible on this exam. Early tricompartmental joint space narrowing is noted. No new fracture lines are detected. IMPRESSION: 1. Improving small joint effusion. 2. Known fracture through the anterior medial tibial plateau not visible on plain film. 3. Early track compartmental osteoarthrosis. REPORT SIGNED IN OTHER VENDOR SYSTEM 09/25/2018 Reported By: Andrew De Leon MD CC: Transcribed Date/Time: 09/25/2018 (1631) Desizing Machine Operator: Printed Date/Time: 10/30/2018 (0922) PAGE 1 Signed Report Octaviano Lowe MD IMG DIAGNOSTIC I MAGING ORDERABLES documented in this encounter Visit Diagnoses Not on filedocumented in this encounter Care Teams Operators School Manager Relationship Specialty Start Date End Date Unknown, Provider, PCP - General 05/04/14 12/16/18 documented as of this encounter
--- OUTSIDE RECORDS SUMMARY | 2023-10-14 01:05 | XMS_ITS | Encounter Summary ---
Author Organization [facility] Address [address] [place] [address] Care Team Providers Care Outside Installation Machinist Name Role Phone Unavailable Primary Care Provider Unavailabl e Reason for Visit * Reason Onset Date Comments Appointment Related 04/23/2014 Encounter Details Date Type Department Care Team (Late st Contact Info) Description 04/23/2014 Telephone [facility] Hematology & Oncology - [facility] [address] [place], [place] [phone] Liza Villa, MS [address] [place], [place] [address] Appointment Related Social History Tobacco Use Types Packs/Day Years Used Date Smoking Tobacco: Never Assessed Sex and Gender Information Value Date Recorded Sex Assigned at Not on file Gender Identity Not on file Sexual Orientation Not on file documented as of this encounter Miscellaneous Notes * Telephone Encounter - Mary Davis - 04/23/2014 1541 EDT I left a message on [employer] letting them know I received a referral from Dr. Venegas's office. I let them know they will be receiving a packet in the mail, explained the FCP process and mailed out packet today. documented in this encounter Plan of Treatment Upcoming Encounters Date Type Department Care Team (Late st Contact Info) Description 12/24/2023 15:30 EST Office Visit [facility] Adult Primary Care - [address] [phone] Pastora Brewster, FLEET MANAGER/DISPATCH [address] [place] [phone] documented as of this encounter Visit Diagnoses Not on filedocumented in this encounter
--- OUTSIDE RECORDS SUMMARY | 2023-10-14 01:05 | XMS_ITS | Encounter Summary ---
Author Organization [facility] Address [address] [place] [address] Care Team Providers Care Leaf Fat Scraper Name Role Phone Unknown, Provider Primary Care Provider Encounter Details Date Type Department Care Team (Late st Contact Info) Description 12/03/2017 Historical Results Only [facility] Radiology Results [address] [place] [address] Maine Graham MD [address] [facility] [address] [place] [address] Social History Tobacco Use Types Packs/Day Years Used Date Smoking Tobacco: Never Assessed Sex and Gender Information Value Date Recorded Sex Assigned at Not on file Gender Identity Not on file Sexual Orientation Not on file documented as of this encounter Plan of Treatment Upcoming Encounters Date Type Department Care Team (Late st Contact Info) Description 12/24/2023 15:30 EST Office Visit [facility] Adult Primary Care - [place] [address] [place] [address] Pastora Brewster, LACY [address] [place] [phone] documented as of this encounter Visit Diagnoses Not on filedocumented in this encounter Care Teams Leaf Fat Scraper Relationship Specialty Start Date End Date Unknown, Provider, PCP - General 05/04/14 12/16/18 documented as of this encounter
--- OUTSIDE RECORDS SUMMARY | 2023-10-14 01:05 | XMS_ITS | Encounter Summary ---
Author Organization [facility] Address [address] [place] [address] Care Team Providers Care Ticket Chopper Assembler Name Role Phone Unknown, Provider Primary Care Provider [phone] Encounter Details Date Type Department Care Team (Latest Contact Info) Description 09/14/2018 11:09 EDT - 09/14/2018 23:59 EDT Hospital Encounter [address] [address] Unknown, Provider, Discharge Disposition: Home or Self Care Social History Tobacco Use Types Packs/Day Years Used Date Smoking Tobacco: Never Assessed Sex and Gender Information Value Date Recorded Sex Assigned at Not on file Gender Identity Not on file Sexual Orientation Not on file documented as of this encounter Discharge Disposition Disposition Code Departure Means Destination Home or Self Shelter documented in this encounter Plan of Treatment Upcoming Encounters Date Type Department Care Team (Late st Contact Info) Description 12/24/2023 15:30 EST Office Visit [facility] Adult Primary Care - [place] [address] [place] [address] Pastora Brewster NP [address] [place] [address] documented as of this encounter Visit Diagnoses Not on filedocumented in this encounter Care Teams Ticket Chopper Assembler Relationship Specialty Start Date End Date Unknown, ProviderMD PCP - General 05/04/14 12/16/18 documented as of this encounter
--- OUTSIDE RECORDS SUMMARY | 2023-10-14 01:05 | XMS_ITS | Encounter Summary ---
Author Organization [facility] Address [address] [place] [address] Care Team Providers Care Slip Cover Operator Name Role Phone Unknown, Provider Primary Care Provider [phone] Sally Malcolm DIE MACHINE OPERATOR Primary Care Provider [phone] Haven [place] MD Primary Care Provider [phone] Pastora Brewster NP Primary Care Provider [phone] Encounter Details Date Type Department Care Team (Late st Contact Info) Description 11/15/2018 Results Only Imaging [facility] Radiology Results [address] [place], [place] [address] Jose Gómez PA-C [address] [phone] Social History Tobacco Use Types Packs/Day Years [...] [facility] - [place] [address] [place], [place] [phone] Pastora Brewster NP [address] [place] [phone] documented as of this encounter Procedures Procedure Name Priority Date/Time Associated Diagnosis Comments XR KNEE 4 OR MORE VIEWS 11/15/2018 14:46 EDT documented in this encounter Results * XR KNEE 4 OR MORE VIEWS (11/15/2018 14:46 EDT) Anatomical Region Laterality Modality Lower Extremities Radiographic I maging 11/15/2018 14:4 3 EDT Narrative 11/15/2018 14:46 EDT ? EXAM: RADIOLOGY/KNEE COMPLETE RT 4+VIEW ?? EX. D/ (1326) ? CLINICAL INFORMATION: ? S82.141A TIBIAL PLATEAU FRACTURE,RIGHT ? INDICATION: S82.141A TIBIAL PLATEAU FRACTURE,RIGHT. ? COMPARISON: Right knee radiograph 10/18/2018. ? TECHNIQUE: 4+ views of the right knee were obtained. ? FINDINGS: ? There has been progressive healing of the proximal tibia fracture ? which is unchanged in position and alignment compared to the prior ? examination. ? REPORT SIGNED IN OTHER VENDOR SYSTEM 11/15/2018 ?Reported By: Andrzej Posada MD ? CC: Jose Gómez ? Transcribed Date/Time: 11/15/2018 (9456) ? Conformal Pad Former: ? Printed Date/Time: 11/15/2018 (8356) ? PAGE 1 ? Signed Report ? Procedure Note Andrzej Posada MD - 12/21/2018 EXAM: RADIOLOGY/KNEE COMPLETE RT 4+VIEW EX. D/ (9009) CLINICAL INFORMATION: S82.141A TIBIAL PLATEAU FRACTURE,RIGHT INDICATION: S82.141A TIBIAL PLATEAU FRACTURE,RIGHT. COMPARISON: Right knee radiograph 10/18/2018. TECHNIQUE: 4+ views of the right knee were obtained. FINDINGS: There has been progressive healing of the proximal tibia fracture which is unchanged in position and alignment compared to the prior examination. REPORT SIGNED IN OTHER VENDOR SYSTEM 11/15/2018 Reported By: Andrzej Posada MD CC: Jose Gómez PAC Transcribed Date/Time: 11/15/2018 (0435) Conformal Pad Former: [email or web address] Printed Date/Time: 11/15/2018 (2943) PAGE 1 Signed Report Jose Gómez PA-C IMG DIAGNOSTIC ZACHERY GING ORDERABLES documented in this encounter Visit Diagnoses Not on filedocumented in this encounter Care Teams Slip Cover Operator Relationship Specialty Start Date End Date Unknown, Provider, PCP - General 05/04/14 12/16/18 Sally Malcolm NP PCP - General 12/17/18 01/19/20 Haven [place] MD PCP - General Internal Medicine - Primary Care 01/20/20 02/13/23 Pastora Brewster NP [address] [place] [phone] PCP - General Internal Medicine - Primary Care 02/14/23 documented as of this encounter
--- OUTSIDE RECORDS SUMMARY | 2023-10-14 01:05 | XMS_ITS | Encounter Summary ---
Author Organization [facility] Address [address] [place] [address] Care Team Providers Care Knife Finisher Name Role Phone Unknown, Provider Primary Care Provider [phone] Encounter Details Date Type Department Care Team (Late st Contact Info) Description 11/12/2017 Historical Results Only [facility] - [facility] [place] [address] [place] [address] Maine Graham MD [address] [place] [address] [address] [place] [address] Social History Tobacco Use Types Packs/Day Years Used Date Smoking Tobacco: Never Assessed Sex and Gender Information Value Date Recorded Sex Assigned at Not on file Gender Identity Not on file Sexual Orientation Not on file documented as of this encounter Plan of Treatment Upcoming Encounters Date Type Department Care Team (Late st Contact Info) Description 12/24/2023 15:30 EST Office Visit [facility] Adult Primary Care - [address] [address] Pastora Brewster NP [address] [place] [phone] documented as of this encounter Procedures Procedure Name Priority Date/Time Associated Diagnosis Comments URINE CHEMICAL (DIP) & SEDIMENT (MICRO) WITHOUT REFLEX TO CULTURE Routine 11/12/2017 16:02 EDT BACTERIAL CULTURE, URINE Routine 11/12/2017 16:02 EDT documented in this encounter Results * BACTERIAL CULTURE, URINE (11/12/2017 16:02 EDT) [facility] No growth. 11/14/2017 12:36 [facility] 11/12/2017 16:0 2 EDT 11/12/2017 17:32 EDT Comment:VOID Maine Graham MD MICROBIOLOGY - GENER AL ORDERABLES [facility] * (ABNORMAL) UA, CHEMICAL AND SEDIMENT ANALYSIS (DIPSTICK AND MICROSCOPIC) (11/12/2017 16:02 EDT) URINE APPEARANCE - [facility] Clear CLEAR 11/12/2017 21:03 [facility] URINE BILIRUBIN - DIPSTICK - [facility] Negative NEGATIVE 11/12/2017 21:03 [facility] URINE BLOOD - [facility] Negative NEG 11/12/2017 21:03 [facility] URINE COLOR - [facility] Yellow YELLOW 11/12/2017 21:03 [facility] URINE GLUCOSE - DIPSTICK - [facility] Negative NEGATIVE 11/12/2017 21:03 [facility] URINE KETONE - [facility] Negative NEGATIVE 11/12/2017 21:03 [facility] URINE LEUK ESTERASE - [facility] Negative NEG 11/12/2017 21:03 [facility] URINE NITRITE - DIPSTICK - [facility] Negative NEG 11/12/2017 21:03 [facility] URINE PH - [facility] 8.5(H) 4.0 - 8.0 8 21:03 [facility] URINE PROTEIN - DIPSTICK - [facility] Negative NEG 11/12/2017 21:03 [facility] URINE SPECIFIC GRAVITY - [facility] 1.015 1.001 - 1.035 11/12/2017 21:03 [facility] URINE UROBILINOGEN - DIPSTICK - [facility] 0.2 0.2 - 1.0 11/12/2017 21:03 [facility] 11/12/2017 16:0 2 EDT 11/12/2017 17:32 EDT Maine Graham MD URINALYSIS ORDERABLE S [facility] documented in this encounter Visit Diagnoses Not on filedocumented in this encounter Care Teams Knife Finisher Relationship Specialty Start Date End Date Unknown, Provider, PCP - General 05/04/14 12/16/18 documented as of this encounter
--- OUTSIDE RECORDS SUMMARY | 2023-10-14 01:05 | XMS_ITS | Encounter Summary ---
Author Organization [facility] Address [address] [place] [address] Care Team Providers Care Department Coordinator Name Role Phone Unknown, Provider Primary Care Provider [phone] Encounter Details Date Type Department Care Team (Latest Contact Info) Description 12/03/2017 14:40 EDT - 12/03/2017 23:59 EDT Hospital Encounter [address] [address] Unknown, Provider, Discharge Disposition: Home or Self Care Social History Tobacco Use Types Packs/Day Years Used Date Smoking Tobacco: Never Assessed Sex and Gender Information Value Date Recorded Sex Assigned at Not on file Gender Identity Not on file Sexual Orientation Not on file documented as of this encounter Discharge Disposition Disposition Code Departure Means Destination Home or Self Long Term documented in this encounter Plan of Treatment Upcoming Encounters Date Type Department Care Team (Late st Contact Info) Description 12/24/2023 15:30 EST Office Visit [facility] Adult Primary Care - [place] [address] [place] [address] Pastora Brewster NP [address] [place] [phone] documented as of this encounter Visit Diagnoses Not on filedocumented in this encounter Care Teams Department Coordinator Relationship Specialty Start Date End Date Unknown, ProviderMD PCP - General 05/04/14 12/16/18 documented as of this encounter
--- OUTSIDE RECORDS SUMMARY | 2023-10-14 01:05 | XMS_ITS | Encounter Summary ---
Author Organization [facility] Address [address] [place] [address] Care Team Providers Care Cryptographic Vulnerability Analyst Name Role Phone Unknown, Provider Primary Care Provider [phone] Encounter Details Date Type Department Care Team (Late st Contact Info) Description 10/18/2018 Historical Results Only [facility] Radiology Results [address] [place] [address] Jose Gómez PA-C [address] [facility] [address] [place] [phone] Social History Tobacco Use Types Packs/Day Years [...] [facility] Adult Primary Care - [place] [address] [place] [address] Pastora Brewster NP [address] [place] [phone] documented as of this encounter Procedures Procedure Name Priority Date/Time Associated Diagnosis Comments XR KNEE 4 OR MORE VIEWS 10/18/2018 12:51 EDT documented in this encounter Results * XR KNEE 4 OR MORE VIEWS (10/18/2018 12:51 EDT) Anatomical Region Laterality Modality Lower Extremities Other 10/18/2018 12:5 1 EDT Narrative 10/18/2018 12:55 EDT ? EXAM: RADIOLOGY/KNEE COMPLETE RT 4+VIEW ?? EX. D/ (0920) ? CLINICAL INFORMATION: ? S82.141A TIBIAL PLATEAU FRACTURE, RIGHT ? INDICATION: S82.141A TIBIAL PLATEAU FRACTURE, RIGHT 3-4 WEEK FOLLOWUP ? RIGHT TIBIA FRACTURE ? TECHNIQUE: 4 views right knee. ? COMPARISON: 09/25/2018, CT 09/14/2018. ? FINDINGS: The known nondisplaced tibial plateau fracture is not ? evident on today's radiographs. The lipohemarthrosis is resolved. No ? new osseous abnormality is detected. The bony alignment is anatomic ? IMPRESSION: ? 1. Known nondisplaced tibial plateau fracture. This is not clearly ? evident on today's radiographs. ? 2. Resolution of previous lipohemarthrosis. ? REPORT SIGNED IN OTHER VENDOR SYSTEM 10/18/2018 ?Reported By: Aquiles Brooke MD ? CC: ? Transcribed Date/Time: 10/18/2018 (1255) ? Refrigeration Mechanic: ? Printed Date/Time: 10/30/2018 (1857) ? PAGE 1 ? Signed Report ? Procedure Note Aquiles Brooke E - 12/17/2018 EXAM: RADIOLOGY/KNEE COMPLETE RT 4+VIEW EX. D/ (0920) CLINICAL INFORMATION: S82.141A TIBIAL PLATEAU FRACTURE, RIGHT INDICATION: S82.141A TIBIAL PLATEAU FRACTURE, RIGHT 3-4 WEEKFOLLOWUP RIGHT TIBIA FRACTURE TECHNIQUE: 4 views right knee. COMPARISON: 09/25/2018, CT 09/14/2018. FINDINGS: The known nondisplaced tibial plateau fracture is not evident on today's radiographs. The lipohemarthrosis is resolved.No new osseous abnormality is detected. The bony alignment is anatomic IMPRESSION: 1. Known nondisplaced tibial plateau fracture. This is not clearly evident on today's radiographs. 2. Resolution of previous lipohemarthrosis. REPORT SIGNED IN OTHER VENDOR SYSTEM 10/18/2018 Reported By: Aquiles Brooke MD CC: Transcribed Date/Time: 10/18/2018 (1424) Refrigeration Mechanic: Printed Date/Time: 10/30/2018 (6150) PAGE 1 Signed Report Jose Gómez PA-C IMG DIAGNOSTIC ZACHERY GING ORDERABLES documented in this encounter Visit Diagnoses Not on filedocumented in this encounter Care Teams Cryptographic Vulnerability Analyst Relationship Specialty Start Date End Date Unknown, Provider, PCP - General 05/04/14 12/16/18 documented as of this encounter
--- OUTSIDE RECORDS SUMMARY | 2023-10-14 01:05 | XMS_ITS | Encounter Summary ---
Author Organization [facility] Address [address] [place] [address] Care Team Providers Care Pediatric Nephrologist Name Role Phone Unknown, Provider Primary Care Provider Encounter Details Date Type Department Care Team (Late st Contact Info) Description 04/20/2014 Historical Results Only [facility] - [address] [phone] Isa Venegas MD [address] [place] [address], [address] [place] [phone] Social History Tobacco Use Types Packs/Day Years Used Date Smoking Tobacco: Never Assessed Sex and Gender Information Value Date Recorded Sex Assigned at Not on file Gender Identity Not on file Sexual Orientation Not on file documented as of this encounter Plan of Treatment Upcoming Encounters Date Type Department Care Team (Late st Contact Info) Description 12/24/2023 15:30 EST Office Visit [facility] Adult Primary Care - [place] [address] [place], [place] [address] Pastora Brewster NP [address] [place] [address] documented as of this encounter Procedures Procedure Name Priority Date/Time Associated Diagnosis Comments PAP TEST Routine 04/20/2014 9:46 EDT documented in this encounter Results * PAP TEST (04/20/2014 9:46 EDT) 04/20/2014 9:46 EDT 04/22/2014 9:46 EDT Narrative [facility] - 04/27/2014 16:36 EDT ----- ------- Name: HOWARD JOHNSON ? : [birth year] ?Age/Sex: 38/F ?Unit#: [id number] ? Loc: AGO ? Status: REG POV ?? Reg Date: 04/20/14 ? Pt.Phone Number: ? ----- ------- Specimen: [id number] ?STATUS: SOUT ?Spec Date:04/20/14 ? Physician Copies: ?Isa Venegas MD ? Tissues: ? Cervical/Endo Pap ?Ernie Carrion MD ? CPT: 84107 ?? Units: ??1 ----- ------- ? CYTOLOGY DIAGNOSIS SPECIMEN ADEQUACY: ?Satisfactory for evaluation. Transformation zone component present. GENERAL CATEGORIZATION: ?Negative for Intraepithelial Lesion or Malignancy DESCRIPTIVE DIAGNOSIS: ?Fungal organisms present morphologically consistent with Amelia species. ----- ------- ?HPV DNA RESULTS ?? 04/20/14 0946 HPV DNA RESULT ??NEG ? Negative for HPV types 16, 18, 31, 33, 35, 39, 45, 51, 52, ? 56, 58, 59, 66, 68. ? Method: [facility] HPV HR (High Risk) DNA test. ----- ------- ORDER QUERIES: LMP: 03/28/14- ? N Post ? N ??PREVIOUS ATYPICAL: Y BCP/HRT? N Rad Rx? N IUD? N ??PAP PLUS HPV? Y ??REFLEX TO HR-HPV IF ASCUS Y REFLEX TO HPV 16/18 IF HPV POS/PAP NEG Y HPV REGARDLESS? Y ??RFLX HPV IF LSIL ?? Signed Tiffany Pretty CT(ASCP) 04/27/14 By the signature above, the attending physician certifies that he/she has personally conducted a gross and/or microscopic examination of the described specimens and rendered or confirmed the above diagnosis. Test Performed by [facility], [address] [place] [address] Student Education Specialist: Mirta Chavez MD PHD ----- ------- Isa Venegas MD PATHOLOGY ORDERABLES [facility] documented in this encounter Visit Diagnoses Not on filedocumented in this encounter Care Teams Pediatric Nephrologist Relationship Specialty Start Date End Date Unknown, Provider, PCP - General 05/04/14 12/16/18 documented as of this encounter
--- OUTSIDE RECORDS SUMMARY | 2023-10-14 01:05 | XMS_ITS | Encounter Summary ---
Author Organization [facility] Address [address] [place] [address] Care Team Providers Care Manager Emergency Name Role Phone Unknown, Provider Primary Care Provider [phone] Encounter Details Date Type Department Care Team (Late st Contact Info) Description 04/29/2014 Historical Results Only [facility] Radiology Results [address] [place] [phone] Isa Venegas MD [address] [facility], [address] [place] [address] Social History Tobacco Use Types [...] Description 12/24/2023 15:30 EST Office Visit [facility] Adult Primary Care - [place] [address] [place] [address] Pastora Brewster NP [address] [place] [address] documented as of this encounter Procedures Procedure Name Priority Date/Time Associated Diagnosis Comments MA BREAST SCREENING ALIYA BILATERAL 04/29/2014 18:18 EDT documented in this encounter Results * MA BREAST SCREENING ALIYA BILATERAL (04/29/2014 18:18 EDT) Anatomical Region Laterality Modality Breast Bilateral Other 04/29/2014 18:1 8 EDT Narrative 04/30/2014 15:48 EDT ? EXAM: MAMMOGRAM/MAMMO BILATERAL SCREEN W ??EX. D/ (1818) ? CLINICAL INFORMATION: ? SCREENING; FAMILY HX OF MALIGNANCY ? TECHNIQUE: ??Full field digital whole breast 2D and 3D CC and MLO views ? of both breasts were obtained. CAD technology was utilized. ? INDICATION: ??Screening ? FINDINGS: ??The fibroglandular patterns of the breasts are normal. ? There has been no change when compared to previous mammograms and ? there is no mammographic evidence of cancer. The breasts are of ? scattered density. ? FINAL ASSESSMENT: ??BILATERAL BREAST - Category 1 - Negative. Routine ?mammographic follow-up is recommended. ? These results will be communicated to your patient via a lay letter ? from Radiology. ??If any additional imaging is needed we will contact ? your patient directly. ? BBL:kad ?Reported By: Soren Arce MD ? CC: ? Transcribed Date/Time: 04/30/2014 (1548) ? And Drying Supervisor Cooking Casing: GARRY ? Printed Date/Time: 07/16/2018 (1337) ? PAGE 1 ? Signed Report ? Procedure Note Soren Arce MD - 12/17/2018 EXAM: MAMMOGRAM/MAMMO BILATERAL SCREEN W EX. D/ (1818) CLINICAL INFORMATION: SCREENING; FAMILY HX OF MALIGNANCY TECHNIQUE: Full field digital whole breast 2D and 3D CC and MLOviews of both breasts were obtained. CAD technology was utilized. INDICATION: Screening FINDINGS: The fibroglandular patterns of the breasts are normal. There has been no change when compared to previous mammograms and there is no mammographic evidence of cancer. The breasts are of scattered density. FINAL ASSESSMENT: BILATERAL BREAST - Category 1 - Negative.Routine mammographic follow-up is recommended. These results will be communicated to your patient via a lay letter from Radiology. If any additional imaging is needed we willcontact your patient directly. BBL:[email or web address] Reported By: Soren Arce MD CC: Transcribed Date/Time: 04/30/2014 (3026) And Drying Supervisor Cooking Casing: GARRY Printed Date/Time: 07/16/2018 (1868) PAGE 1 Signed Report Isa Venegas MD IMG MAMMOGRAPHY [facility] documented in this encounter Visit Diagnoses Not on filedocumented in this encounter Care Teams Manager Emergency Relationship Specialty Start Date End Date Unknown, Provider, PCP - General 05/04/14 12/16/18 documented as of this encounter
--- OUTSIDE RECORDS SUMMARY | 2023-10-14 01:05 | XMS_ITS | Encounter Summary ---
Author Organization [facility] Address [address] [place] [address] Care Team Providers Care Word Processor Operator Name Role Phone Unknown, Provider Primary Care Provider [phone] Sally Malcolm NP Primary Care Provider [phone] Encounter Details Date Type Department Care Team (Late st Contact Info) Description 12/07/2011 Historical Results Only [facility] - [facility] [address] [place], [place] [phone] Veda Chau MD [address] [facility] [address] [place], [place] [address] Social History Tobacco Use Types Packs/Day Years Used Date Smoking Tobacco: Never Assessed AUDIT-C Answer Date Recorded Frequency of Alcohol [...] Info) Description 12/24/2023 15:30 EST Office Visit [facility] Adult Primary [facility] - [place] [facility] [address] [place], [place] [phone] Pastora Brewster NP [address] [place] [phone] documented as of this encounter Procedures Procedure Name Priority Date/Time Associated Diagnosis Comments PAP TEST Routine 12/07/2011 documented in this encounter Results * PAP TEST (12/07/2011) 12/07/2011 12/07/2011 16: 50 EDT Narrative [facility] - 12/11/2011 15:42 EDT ----- ------- Name: HOWARD JOHNSON ? : [birth year] ?Age/Sex: 38/F ?Unit#: [id number] ? Loc: AGO ? Status: REG POV ?? Reg Date: 12/07/11 ? Pt.Phone Number: ? ----- ------- Specimen: [id number] ?STATUS: SOUT ?Spec Date:12/07/11 ? Physician Copies: ?Veda Chau ? Tissues: ? Cervical/Endo Pap ?Ernie Carrion MD ? CPT: 88161 ?? Units: ??1 ----- ------- ? CYTOLOGY DIAGNOSIS SPECIMEN ADEQUACY: ?Satisfactory for evaluation. Transformation zone component present. GENERAL CATEGORIZATION: ?Negative for Intraepithelial Lesion or Malignancy DESCRIPTIVE DIAGNOSIS: ?Fungal organisms present morphologically consistent with Amelia species. RECOMMENDATIONS/COMMENTS: ?None. ----- ------- ?HPV DNA RESULTS ?? 12/07/11 1650 HPV DNA RESULT ??NEG ? Negative for HPV types 16, 18, 31, 33, 35, 39, 45, 51, 52, ? 56, 58, 59, 66, 68. ? Method: [facility] HPV HR (High Risk) DNA test. ----- ------- ORDER QUERIES: LMP: 11/17/11- ? N Post ? N ??PREVIOUS ATYPICAL: N BCP/HRT? N Rad Rx? N IUD? N ??PAP PLUS HPV? Y ??REFLEX TO HR-HPV IF ASCUS ?? REFLEX TO HPV 16/18 IF HPV POS/PAP NEG ?? HPV REGARDLESS?RFLX HPV IF LSIL ?? IF ASCUS DO HPV? N Signed Tiffany Pretty CT(ASCP) 12/11/11 By the signature above, the attending physician certifies that he/she has personally conducted a gross and/or microscopic examination of the described specimens and rendered or confirmed the above diagnosis. Test Performed by [facility], [address] [place] [address] Senior Branch Manager: Mirta Chavez MD PHD ----- ------- Veda Chau MD PATHOLOGY ORDERABLES [facility] documented in this encounter Visit Diagnoses Not on filedocumented in this encounter Care Teams Word Processor Operator Relationship Specialty Start Date End Date Unknown, Provider, PCP - General 05/04/14 12/16/18 Sally Malcolm NP PCP - General 12/17/18 01/19/20 documented as of this encounter
--- OUTSIDE RECORDS SUMMARY | 2023-10-14 01:05 | XMS_ITS | Encounter Summary ---
Author Organization [facility] Address [address] [place] [address] Care Team Providers Care Curriculum Director Name Role Phone Unknown, Provider Primary Care Provider [phone] Sally Malcolm NP Primary Care Provider [phone] Encounter Details Date Type Department Care Team (Late st Contact Info) Description 05/18/2009 Historical Results Only [facility] - [address] [address] Katt Carson, [facility] [address] [place] [address] DR CORNEJO [address] [place] [phone] Social History Tobacco Use Types Packs/Day Years [...] Info) Description 12/24/2023 15:30 EST Office Visit [facility] Adult Primary Care - [place] [address] [place], [place] [phone] Pastora Brewster NP [address] [place] [phone] documented as of this encounter Procedures Procedure Name Priority Date/Time Associated Diagnosis Comments PAP TEST Routine 05/18/2009 documented in this encounter Results * PAP TEST (05/18/2009) 05/18/2009 05/18/2009 17: 41 EDT Narrative [facility] - 05/21/2009 14:30 EDT ----- ------- Name: HOWARD JOHNSON ? : [birth year] ?Age/Sex: 38/F ?Unit#: [id number] ? Loc: AGO ? Status: REG POV ?? Reg Date: 05/18/09 ? Pt.Phone Number: ? ----- ------- Specimen: [id number] ?STATUS: SOUT ?Spec Date:05/18/09 ? Physician Copies: ?Katt Carson ? Tissues: ? Cervical/Endo Pap ? CPT: 02557 ?? Units: ??1 ----- ------- ? CYTOLOGY DIAGNOSIS SPECIMEN ADEQUACY: ?Satisfactory for evaluation. Transformation zone component present. GENERAL CATEGORIZATION: ?Negative for Intraepithelial Lesion or Malignancy DESCRIPTIVE DIAGNOSIS: ?Fungal organisms present morphologically consistent with Amelia species. RECOMMENDATIONS/COMMENTS: ?None. ----- ------- ORDER QUERIES: LMP: 05/12/09- ? N Post ? N ??PREVIOUS ATYPICAL: N BCP/HRT? N Rad Rx? N IUD? N ??PAP PLUS HPV? N ??REFLEX TO HR-HPV IF ASCUS ?? REFLEX TO HPV 16/18 IF HPV POS/PAP NEG ?? HPV REGARDLESS?RFLX HPV IF LSIL ?? IF ASCUS DO HPV? Y Signed Tiffany Pretty CT(ASCP) 04/09/10 By the signature above, the attending physician certifies that he/she has personally conducted a gross and/or microscopic examination of the described specimens and rendered or confirmed the above diagnosis. Test Performed by [facility], [address] [place] [address] Senior Investigator: Mirta Chavez MD PHD ----- ------- Katt Carson [facility] PATHOLOGY ORDERABLES [facility] documented in this encounter Visit Diagnoses Not on filedocumented in this encounter Care Teams Curriculum Director Relationship Specialty Start Date End Date Unknown, Provider, PCP - General 05/04/14 12/16/18 Sally Malcolm NP PCP - General 12/17/18 01/19/20 documented as of this encounter
--- OUTSIDE RECORDS SUMMARY | 2023-10-14 01:05 | XMS_ITS | Encounter Summary ---
Author Organization [facility] Address [address] [place] [address] Care Team Providers Care Wildlife Biology Technician Name Role Phone Unknown, Provider Primary Care Provider Encounter Details Date Type Department Care Team (Late st Contact Info) Description 09/14/2018 Historical Results Only [facility] Radiology Results [address], [place] [id number] Bob Gurrola MD [address] [place] [phone] Social History Tobacco Use Types Packs/Day Years Used Date Smoking Tobacco: Never Assessed Sex and Gender Information Value Date Recorded Sex Assigned at Not on file Gender Identity Not on file Sexual Orientation Not on file documented as of this encounter Plan of Treatment Upcoming Encounters Date Type Department Care Team (Late st Contact Info) Description 12/24/2023 15:30 EST Office Visit [facility] - [place] [address] [place] [address] Pastora Brewster NP [address] [place] [phone] documented as of this encounter Procedures Procedure Name Priority Date/Time Associated Diagnosis Comments CT LOWER EXTREMITY WO CONTRAST 09/14/2018 19:52 EDT XR HIP RIGHT 2 VIEWS W/ PELVIS 09/14/2018 19:11 EDT XR KNEE 4 OR MORE VIEWS 09/14/2018 19:01 EDT documented in this encounter Results * CT LOWER EXTREMITY WO CONTRAST (09/14/2018 19:52 EDT) Anatomical Region Laterality Modality Lower Extremities Other 09/14/2018 19:5 2 EDT Narrative 09/14/2018 19:52 EDT ? EXAM: CAT SCAN/LOWER EXT. WITHOUT CONTRAS EX. D/ (1943) ? CLINICAL INFORMATION: ? R knee ? EXAM: ? CT Right Lower Extremity Without Contrast, Knee ? EXAM DATE/TIME: ? 09/14/2018 19:13 ? CLINICAL HISTORY: ? 38 years old, female; Pain; Knee; Right; Additional info: R ? knee, fall with + fat/fluid level ? TECHNIQUE: ? Imaging protocol: CT of the Right lower extremity without ? contrast was performed. Exam focused on the knee. Coronal and ? sagittal reformatted images were created and reviewed. ? Radiation optimization: All CT scans at this facility use at ? least one of these dose optimization techniques: automated ? exposure control; mA and/or kV adjustment per patient size ? (includes targeted exams where dose is matched to clinical ? indication); or iterative reconstruction. ? COMPARISON: ? CR [id number] 09/14/2018 18:25 ? FINDINGS: ? Bones/joints: Subtle nondisplaced fracture deformity, anterior ? aspect of the medial tibial plateau. No displaced fracture. CT ? confirms the presence of a large hemarthrosis. The fibula, ? patella and femur are intact. ? Soft tissues: Prepatellar soft tissue swelling. Soft tissue ? swelling in the lateral knee. Fluid and edema in the medial ? knee. ? IMPRESSION: ? 1. Subtle nondisplaced fracture deformity, anterior aspect of ? the medial tibial plateau. ? 2. No displaced fracture. ? 3. CT confirms the presence of a large hemarthrosis. ? REPORT SIGNED IN OTHER VENDOR SYSTEM 09/14/2018 ?Reported By: Tracy Henriquez MD ? CC: Bob Gurrola MD ? Transcribed Date/Time: 09/14/2018 (1951) ? Manager Oracle Database: ? Printed Date/Time: 10/30/2018 (5773) ? PAGE 1 ? Signed Report ? Procedure Note Tracy Henriquez MD - 12/17/2018 EXAM: CAT SCAN/LOWER EXT. WITHOUT CONTRAS EX. D/ (1943) CLINICAL INFORMATION: R knee EXAM: CT Right Lower Extremity Without Contrast, Knee EXAM DATE/TIME: 09/14/2018 19:13 CLINICAL HISTORY: 38 years old, female; Pain; Knee; Right; Additional info: R knee, fall with + fat/fluid level TECHNIQUE: Imaging protocol: CT of the Right lower extremity without contrast was performed. Exam focused on the knee. Coronal and sagittal reformatted images were created and reviewed. Radiation optimization: All CT scans at this facility use at least one of these dose optimization techniques: automated exposure control; mA and/or kV adjustment per patient size (includes targeted exams where dose is matched to clinical indication); or iterative reconstruction. COMPARISON: CR [id number] 09/14/2018 18:25 FINDINGS: Bones/joints: Subtle nondisplaced fracture deformity, anterior aspect of the medial tibial plateau. No displaced fracture. CT confirms the presence of a large hemarthrosis. The fibula, patella and femur are intact. Soft tissues: Prepatellar soft tissue swelling. Soft tissue swelling in the lateral knee. Fluid and edema in the medial knee. IMPRESSION: 1. Subtle nondisplaced fracture deformity, anterior aspect of the medial tibial plateau. 2. No displaced fracture. 3. CT confirms the presence of a large hemarthrosis. REPORT SIGNED IN OTHER VENDOR SYSTEM 09/14/2018 Reported By: Tracy Henriquez MD CC: Bob Gurrola MD Transcribed Date/Time: 09/14/2018 (1951) Manager Oracle Database: Printed Date/Time: 10/30/2018 (2206) PAGE 1 Signed Report Bob Gurrola MD IMG CT ORDERABLE S * XR HIP RIGHT 2 VIEWS W/ PELVIS (09/14/2018 19:11 EDT) Anatomical Region Laterality Modality Lower Extremities Other 09/14/2018 19:1 1 EDT Narrative 09/14/2018 19:11 EDT ? EXAM: RADIOLOGY/HIP RIGHT 2 VIEWS W/ PELV EX. D/ (1907) ? CLINICAL INFORMATION: ? fall with pain at R hip/GT ? EXAM: ? XR Pelvis ? EXAM DATE/TIME: ? 09/14/2018 18:26 ? CLINICAL HISTORY: ? 38 years old, female; Hip pain; Right hip; Additional info: Fall ? with pain at R hip/gt ? TECHNIQUE: ? Imaging protocol: XR pelvis. ? Views: 1 or 2 view. ? COMPARISON: ? No relevant prior studies available. ? FINDINGS: ? Bones/joints: No acute fracture or subluxation. Tiny ? enthesophyte adjacent to the right femoral lesser trochanter, ? chronic and benign in appearance. ? Soft tissues: Please see above. ? IMPRESSION: ? No acute bony pathology. ? REPORT SIGNED IN OTHER VENDOR SYSTEM 09/14/2018 ?Reported By: Tracy Henriquez MD ? CC: Bob Gurrola MD ? Transcribed Date/Time: 09/14/2018 (1910) ? Manager Oracle Database: ? Printed Date/Time: 10/30/2018 (8719) ? PAGE 1 ? Signed Report ? Procedure Note Tracy Henriquez MD - 12/17/2018 EXAM: RADIOLOGY/HIP RIGHT 2 VIEWS W/ PELV EX. D/ (190) CLINICAL INFORMATION: fall with pain at R hip/GT EXAM: XR Pelvis EXAM DATE/TIME: 09/14/2018 18:26 CLINICAL HISTORY: 38 years old, female; Hip pain; Right hip; Additional info: Fall with pain at R hip/gt TECHNIQUE: Imaging protocol: XR pelvis. Views: 1 or 2 view. COMPARISON: No relevant prior studies available. FINDINGS: Bones/joints: No acute fracture or subluxation. Tiny enthesophyte adjacent to the right femoral lesser trochanter, chronic and benign in appearance. Soft tissues: Please see above. IMPRESSION: No acute bony pathology. REPORT SIGNED IN OTHER VENDOR SYSTEM 09/14/2018 Reported By: Tracy Henriquez MD CC: Bob Gurrola MD Transcribed Date/Time: 09/14/2018 (1910) Manager Oracle Database: Printed Date/Time: 10/30/2018 (3380) PAGE 1 Signed Report Bob Gurrola MD IMG DIAGNOSTIC I MAGING ORDERABLES * XR KNEE 4 OR MORE VIEWS (09/14/2018 19:01 EDT) Anatomical Region Laterality Modality Lower Extremities Other 09/14/2018 19:0 1 EDT Narrative 09/14/2018 19:01 EDT ? EXAM: RADIOLOGY/KNEE COMPLETE RT 4+VIEW ?? EX. D/ (1805) ? CLINICAL INFORMATION: ? s/p fall ? EXAM: ? XR Right Knee ? EXAM DATE/TIME: ? 09/14/2018 17:46 ? CLINICAL HISTORY: ? 38 years old, female; Pain; Knee; Right; Additional info: S/P ? fall ? TECHNIQUE: ? Imaging protocol: XR Right knee. ? Views: 4 or more views. ? COMPARISON: ? No relevant prior studies available. ? FINDINGS: ? Bones/joints: No definite fracture is identified ? radiographically. A fluid fat level is suggested within a knee ? joint effusion. Question minimal irregularity posterior superior ? aspect of the patella. ? Soft tissues: Prepatellar soft tissue swelling. ? IMPRESSION: ? 1. No definite fracture is identified radiographically. ? 2. A fluid fat level is suggested within a knee joint effusion. ? This is suspicious for an occult fracture. ? 3. Question minimal irregularity posterior superior aspect of ? the patella. Question possible fracture, consider CT or followup ? x-ray if pain localizes to this region. ? REPORT SIGNED IN OTHER VENDOR SYSTEM 09/14/2018 ?Reported By: Tracy Henriquez MD ? CC: Bob Gurrola MD ? Transcribed Date/Time: 09/14/2018 (1900) ? Manager Oracle Database: ? Printed Date/Time: 10/30/2018 (4219) ? PAGE 1 ? Signed Report ? Procedure Note Tracy Henriquez MD - 12/17/2018 EXAM: RADIOLOGY/KNEE COMPLETE RT 4+VIEW EX. D/ (1805) CLINICAL INFORMATION: s/p fall EXAM: XR Right Knee EXAM DATE/TIME: 09/14/2018 17:46 CLINICAL HISTORY: 38 years old, female; Pain; Knee; Right; Additional info: S/P fall TECHNIQUE: Imaging protocol: XR Right knee. Views: 4 or more views. COMPARISON: No relevant prior studies available. FINDINGS: Bones/joints: No definite fracture is identified radiographically. A fluid fat level is suggested within a knee joint effusion. Question minimal irregularity posterior superior aspect of the patella. Soft tissues: Prepatellar soft tissue swelling. IMPRESSION: 1. No definite fracture is identified radiographically. 2. A fluid fat level is suggested within a knee joint effusion. This is suspicious for an occult fracture. 3. Question minimal irregularity posterior superior aspect of the patella. Question possible fracture, consider CT or followup x-ray if pain localizes to this region. REPORT SIGNED IN OTHER VENDOR SYSTEM 09/14/2018 Reported By: Tracy Henriquez MD CC: Bob Gurrola MD Transcribed Date/Time: 09/14/2018 (1900) Manager Oracle Database: Printed Date/Time: 10/30/2018 (9684) PAGE 1 Signed Report Bob Gurrola MD IMG DIAGNOSTIC I MAGING ORDERABLES documented in this encounter Visit Diagnoses Not on filedocumented in this encounter Care Teams Wildlife Biology Technician Relationship Specialty Start Date End Date Unknown, Provider, PCP - General 05/04/14 12/16/18 documented as of this encounter
[2023-10-14] MEDS: Ondansetron 4 MG/2 ML VIAL (01:16)
[2023-10-14 01:22] LABS: Abs Immature Grans 0.06 10^3/uL (0.0-0.06); Absolute Basophil Count 0.07 10^3/uL (0.0-0.2); Absolute Eosinophil Count 0.02 10^3/uL (0.0-0.7); Absolute Monocyte Count 0.32 10^3/uL (0.1-0.8); Basophils % 0.6 %; Eosinophils % 0.2 %; HCT 46.9 % (36.0-46.0); HGB 16.5 g/dL (11.2-15.7); Immature Grans % 0.5 %; Lymphocytes % 11.4 %; MCHC 35.2 % (32.0-36.0); MCV 97 fL (80-95); MPV 10.2 fL (8.0-11.0); Monocytes % 2.9 %; Neutrophils % 84.4 %; Platelet Count 325 10^3/uL (130-400); RBC 4.85 10^6/uL (3.93-5.22); RDW 12.7 % (11.7-14.6); RDW-SD 45.3 fL; WBC 10.92 10^3/uL (4.4-10.8)
[2023-10-14 01:23] LABS: Absolute Lymphocyte Count 1.24 10^3/uL (1.2-3.4); Absolute Neutrophil Count 9.22 10^3/uL (1.2-6.7)
[2023-10-14] MEDS: Lactated Ringers 1,000 ML 1000 ML IV ×2 (01:26→02:02)
[2023-10-14 01:37] LABS: ALT 18 U/L (14-59); AST 17 U/L (15-37); Albumin 4.2 g/dL (3.4-5.0); Alkaline Phosphatase 64 U/L (46-116); Anion Gap 15.1 mmol/L (3-11); BUN 12 mg/dL (7-18); Bilirubin, Total 0.97 mg/dL (0.2-1.0); CO2 20.9 mmol/L (21.0-32.0); Chloride 104 mmol/L (98-107); Glucose 132 mg/dL (74-106); Lipase 56 U/L (16-77); Potassium 3.6 mmol/L (3.5-5.1); Sodium 140 mmol/L (136-145); Total Protein 7.6 g/dL (6.4-8.2)
[2023-10-14 01:39] VITALS: O2SAT 99
[2023-10-14 01:40] VITALS: O2SAT 100
[2023-10-14 01:43] LABS: Calcium 9.3 mg/dL (8.5-10.1)
--- NOTE | 2023-10-14 01:46 | ED.GENADUL_ITS ---
Discharge Plan Disposition Patient Disposition: Home Condition: Improving Discharge Details Clinical Impression: Nausea and vomiting Primary Care Provider: Pastora Brewster ED Provider: Nicola Connor [place] Meds and New Rx's Prescriptions: No Action cyanocobalamin (vitamin B-12) 1,000 mcg tablet Patient Comments: TAKE ONE TABLET BY MOUTH EVERY DAY omeprazole 40 mg capsule,delayed release(DR/EC) Patient Comments: TAKE ONE CAPSULE BY MOUTH EVERY MORNING citalopram 20 mg tablet Patient Comments: TAKE ONE AND A HALF TABLETS BY MOUTH EVERY DAY rizatriptan 10 mg tablet,disintegrating Patient Comments: DISSOLVE 1 TABLET ON THE TONGUE NEEDED FOR MIGRAINE promethazine 25 mg tablet Patient Comments: TAKE ONE TABLET BY MOUTH EVERY 8 HOURS NEEDED FOR NAUSEA omeprazole 20 mg capsule,delayed release(DR/EC) Patient Comments: TAKE 1 CAPSULE BY MOUTH EVERY DAY norethindrone (contraceptive) [Jencycla] 0.35 mg tablet Patient Comments: TAKE ONE TABLET BY MOUTH EVERY DAY ferrous gluconate 324 mg (38 mg iron) tablet Patient Comments: TAKE ONE TABLET BY MOUTH DAILY WITH BREAKFAST Nurtec ODT 75 mg tablet,disintegrating Patient Comments: TAKE ONE TABLET BY MOUTH EVERY 48 HOURS Discharge Instructions Instructions: Nausea and vomiting in adults Additional Instructions: You were seen in the ED for nausea and vomiting which was treated with medications and fluids. Laboratory studies overall are reassuring. You have been given 3 tablets of ondansetron for recurrent nausea vomiting. You may take 1 every 8 hours as needed for recurrent nausea vomiting. Recommend clear liquid diet for the next 12 to 24 hours and advance slowly as tolerated. Follow-up with primary care this coming week if not doing completely better. Return to ED for persistent vomiting, bloody vomiting, worsening abdominal pain, fever, other concerns. Referrals: Pastora Brewster [Primary Care Provider] - [facility] General Mode of arrival: ambulatory . Date/Time Provider Initiated Documentation: 10/14/23 01:07 . Limitations to Documentation: no limitations . Information obtained by: patient and RN notes reviewed . HPI Narrative: Patient presenting to ED with persistent nausea and vomiting since approximately 3 PM in the afternoon. Patient reports at this point unable to keep anything down and continues to have dry heaves. She has had a couple episodes of diarrhea. Has no real belly pain but reports back pain from all the vomiting. Was perfectly fine in the morning when she first awoke. Denies any chest pain or shortness of breath. Denies any fever or cough. Related Data Home Medications ?Medication ?Instructions ?Recorded ?Confirmed citalopram 20 mg tablet mg 10/14/23 cyanocobalamin (vitamin B-12) mcg 10/14/23 1,000 mcg tablet ferrous gluconate 324 mg (38 mg mg 10/14/23 iron) tablet norethindrone (contraceptive) 0.35 mg 10/14/23 mg tablet (Jencycla) omeprazole 20 mg capsule,delayed mg 10/14/23 release omeprazole 40 mg capsule,delayed mg 10/14/23 release promethazine 25 mg tablet mg 10/14/23 rimegepant 75 mg disintegrating mg 10/14/23 tablet (Nurtec ODT) rizatriptan 10 mg disintegrating mg 10/14/23 tablet Allergies Allergy/AdvReac Type Severity Reaction Status Date / Time Sulfa (Sulfonamide Allergy Severe Hives Unverified 10/14/23 01:04 Antibiotics) General Stated Complaint: Abd Prob PABLO: 3 Review of Systems Narrative: Per HPI Exam Narrative Exam Narrative: Const: WDWN female appears uncomfortable. VS per triage. HEENT: NC/AT. Normal facial exam. Neck: Supple. Trachea midline. Lungs: Normal respiratory effort. Lungs are clear. Cor: RRR without murmur. Good radial pulses. GI: Soft/ND/NT. Neuro: A+O x 3. Normal speech, mentation, gait. Cranial nerves II - XII grossly intact. No gross motor or sensory deficit. Ext: No C/C/E. Course Vital Signs Vital signs: Vital Signs Temperature 97.5 F L 10/14/23 01:00 Pulse 64 10/14/23 01:00 Respiratory Rate 36 H 10/14/23 01:00 Blood Pressure 117/88 10/14/23 01:00 Pulse Oximetry 95 10/14/23 01:00 Temperature 97.5 F L 10/14/23 01:00 Temperature Source Oral 10/14/23 01:00 Pulse 64 10/14/23 01:00 Respiratory Rate 36 H 10/14/23 01:00 Respiratory Effort Normal 10/14/23 01:06 Blood Pressure 117/88 10/14/23 01:00 Pulse Oximetry 100 10/14/23 01:40 Oxygen Delivery Method Room Air 10/14/23 01:00 Oxygen Flow Rate 0 10/14/23 01:00 Lab/Test Results Lab/Test Results: Laboratory Tests Range/Units 10/14/23 01:15 WBC (4.4-10.8) 10^3/uL 10.92 H RBC (3.93-5.22) 10^6/uL 4.85 Hgb (11.2-15.7) g/dL 16.5 H Hct (36.0-46.0) % 46.9 H MCV (80-95) fL 97 H MCH (27.0-33.0) pg 34.0 H MCHC (32.0-36.0) % 35.2 RDW (11.7-14.6) % 12.7 Plt Count (130-400) 10^3/uL 325 MPV (8.0-11.0) fL 10.2 Immature Gran % % 0.5 Neutrophils % % 84.4 Lymphocytes % % 11.4 Monocytes % % 2.9 Eosinophils % % 0.2 Basophils % % 0.6 Nucleated RBC % (0.0-0.3) % 0.0 Absolute Neutrophils (1.2-6.7) 10^3/uL 9.22 H Absolute Lymphocytes (1.2-3.4) 10^3/uL 1.24 Absolute Monocytes (0.1-0.8) 10^3/uL 0.32 Absolute Eosinophils (0.0-0.7) 10^3/uL 0.02 Absolute Basophils (0.0-0.2) 10^3/uL 0.07 Sodium (136-145) mmol/L 140 Potassium (3.5-5.1) mmol/L 3.6 Chloride (98-107) mmol/L 104 Carbon Dioxide (21.0-32.0) mmol/L 20.9 L Anion Gap (3-11) mmol/L 15.1 H BUN (7-18) mg/dL 12 Creatinine (0.55-1.02) mg/dL 1.0 Est GFR (CKD-EPI 2020) (mL/min/1.73m2) 70.80 Glucose (74-106) mg/dL 132 H Calcium (8.5-10.1) mg/dL 9.3 Total Bilirubin (0.2-1.0) mg/dL 0.97 AST (15-37) U/L 17 ALT (14-59) U/L 18 Alkaline Phosphatase (46-116) U/L 64 Total Protein (6.4-8.2) g/dL 7.6 Albumin (3.4-5.0) g/dL 4.2 Lipase (16-77) U/L 56 Medical Decision Making Patient presenting to ED with persistent nausea and vomiting for the last 12 hours, unable to tolerate anything orally. Has benign abdomen. Denies any coffee-ground or bloody emesis. Has had a couple episodes of diarrhea though not persistent. IV established and fluids started. Ondansetron given with slight results so ordered for prochlorperazine and ketorolac. Laboratory studies sent. 03:00 - Laboratory studies with some hemoconcentration with a hemoglobin of 16.5. Bicarb is low normal at 21 with a gap of 15. Otherwise electrolytes, liver function, lipase are all normal. Patient feeling much better. Will trial with clears while waiting for urinalysis results. 04:00 - Patient is tolerating clear liquids. Urinalysis with blood only consistent with her menstrual cycle. Patient will be discharged home with 3 ondansetron tablets for recurrent nausea vomiting. Follow-up with primary care next week as needed. Return precautions provided. Lab Data Lab results reviewed: Yes I reviewed the patient's lab results. PFSH All Active Problems (Updated 10/14/23 @ 03:57 by Nicola Connor MD) Nausea and vomiting (Acute) Social History Smoking/Tobacco Use Status: Current every day Tobacco Type: cigarettes Smoking risk assessment performed?: Yes Alcohol Intake: never Drug use: Occasionally Substance use type: marijuana Housing: house Do you feel safe at home: Yes Do you feel safe in your relationship?: Yes
[2023-10-14] MEDS: Ketorolac 30 MG/ML VIAL IVP (02:02)
[2023-10-14] MEDS: Prochlorperazine 10 MG/2 ML VIAL IVP (02:02)
[2023-10-14 02:25] LABS: COVID-19 PCR Negative (Negative); Influenza A PCR Negative (Negative); Influenza B PCR Negative (Negative); RSV PCR Negative (Negative)
[2023-10-14] MEDS: Normal Saline 50 ML 150 ML (02:29)
--- NOTE | 2023-10-14 02:32 | NUR.NOTE ---
Nursing Note: Hand off report to ADAM Christensen
[2023-10-14 02:36] LABS: Source Nasopharynx
[2023-10-14 03:20] LABS: Bilirubin Negative (Negative); Blood Moderate (Negative); Clarity Clear (Clear); Glucose Negative (Negative); Ketones Negative (Negative); Leukocyte Esterase Negative (Negative); Nitrite Negative (Negative); Urobilinogen 0.2 mg/dL (Up to 0.2); pH 7.5 (5-8)
[2023-10-14 03:24] LABS: Bacteria Rare HPF (Negative); C & S Indicated? No; Casts Negative LPF (Negative); Crystals Negative HPF (Negative); Epithelial Cells Negative HPF (Negative); Mucus Negative (Negative); RBC >50 HPF (0-2); WBC Negative HPF (0-5)
[2023-10-14 03:56] VITALS: BP 142/84; PULSE 83; RESP 20; TEMP 36.8; O2SAT 100
[2023-10-14 03:57] VITALS: BP 142/84; PULSE 83; RESP 20; TEMP 36.8; O2SAT 100
[2023-10-14] MEDS: Ondansetron O.D.T. 4 MG TABEF, 3 TABS/BTL PO (04:03)
== END 2023-10-14 03:56 | disposition home or self-care (01) ==
PROVIDERS: Emergency Medicine; Emergency Provider Emergency Medicine; PCP Nurse Practitioner Adult Health
DX: R11.2 Nausea with vomiting, unspecified (principal)
CPT/HCPCS: 36415; 80053; 83690; 87637; 96361; 96374; 96375; 99284; 81003; 81015; 85025; 99283; J0780; J1885; J2405